=== PATIENT | female | born 1930 | race Caucasian/White ===

== ENCOUNTER → 2016-05-29 | Outpatient (CLI) | payer MEDICARE, BC ==
--- NOTE | 2016-05-29 11:09 | MM ---
Reason for exam: follow-up at short interval from prior study. Last mammogram was performed 6 months ago. History: Patient is postmenopausal. Physical Findings: Nurse did not find any significant physical abnormalities on exam. MG 3D Diag Mammo W/Cad RT CC and MLO view(s) were taken of the right breast. Prior study comparison: November 23, 2015, bilateral MG 3d screening mammo w/cad. November 14, 2014, right breast MG work up mamm w CAD RT. November 09, 2014, bilateral MG screening mammo w CAD. October 28, 2013, bilateral MG screening mammo w CAD. The breast tissue is heterogeneously dense. This may lower the sensitivity of mammography. Finding: There are typically benign vascular, round, linear calcifications in the right breast. There is no discrete abnormality. These results were verbally communicated with the patient and result sheet given to the patient on 05/29/16. ASSESSMENT: Benign, BI-RAD 2 RECOMMENDATION: Return to routine screening mammogram schedule for both breasts. Back on schedule for November 2016.
== END | disposition home or self-care (01) ==
LOC: RADMAMWWP 10:10
PROVIDERS: ATTEND Family Medicine
DX: R92.8 Other abnormal and inconclusive findings on diagnostic imaging of breast (principal)
CPT/HCPCS: G0206; G0279

== ENCOUNTER 2019-01-03 10:58 | Emergency (ER) | payer MEDICARE ==
[2019-01-03 11:14] VITALS: BP 125/67; PULSE 77; RESP 16; TEMP 98.1
--- NOTE | 2019-01-03 11:44 | ED ---
General Adult HPI - General Chief complaint: Extremity Injury, Lower Stated complaint: Discolored leg pain Time Seen by Provider: 01/03/19 11:10 Source: patient, family, RN notes reviewed Mode of arrival: wheelchair Limitations: no limitations - History of Present Illness Initial comments: This is an 88-year-old female who presents emergency Department complaining of ecchymosis to the right distal posterior leg. Patient states now the discoloration has spread to the medial and anterior aspect of the leg she says the area of swelling is mildly tender. Patient has noted that her side is caused a perfect demarcation of the discoloration. The area of discoloration aside from the ecchymotic area is yellow in color. Patient states it started yesterday evening. Patient denies any trauma that she knows of. Patient states she is on Xarelto. Patient denies any other sites of bruising or bleeding. Patient denies any difficulty breathing or chest pain. Patient states she has no other complaints other than the slight pain in the posterior aspect of the leg. - Related Data Home Medications Medication Instructions Recorded Confirmed ALPRAZolam [Xanax] 1 mg PO BID PRN 10/18/13 01/03/19 Atenolol [Tenormin] 25 mg PO BID 10/18/13 01/03/19 Furosemide [Lasix] 20 mg PO DAILY 10/18/13 01/03/19 Quinapril HCl [Accupril] 20 mg PO DAILY 10/18/13 01/03/19 Rivaroxaban [Xarelto] 15 mg PO DAILY 10/18/13 01/03/19 Simvastatin [Zocor] 40 mg PO HS 10/18/13 01/03/19 Allergies Allergy/AdvReac Type Severity Reaction Status Date / Time No Known Allergies Allergy Verified 01/03/19 11:40 Review of Systems ROS Statement: Those systems with pertinent positive or pertinent negative responses have been documented in the HPI. ROS Other: All systems not noted in ROS Statement are negative. Past Medical History Past Medical History: Coronary Artery Disease (CAD), Hyperlipidemia, Hypertension Additional Past Medical History / Comment(s): hypertension anxiety disorder History of Any Multi-Drug Resistant Organisms: None Reported Past Surgical History: Appendectomy, Coronary Bypass/CABG Additional Past Surgical History / Comment(s): CABG IN JAN 2013 WITH CARDIOVERSION Past Anesthesia/Blood Transfusion Reactions: No Reported Reaction Past Psychological History: Anxiety Smoking Status: Former smoker Past Alcohol Use History: None Reported Past Drug Use History: None Reported - Past Family History Father Additional Family Medical History / Comment(s): YOUNG FROM HEART ATTACK General Exam - General Exam Comments Initial Comments: GENERAL: Patient is well-developed and well-nourished. Patient is nontoxic and well- hydrated and is in mild distress. ENT: Neck is soft and supple. No significant lymphadenopathy is noted. Oropharynx is clear. Moist mucous membranes. Neck has full range of motion without el iciting any pain. EYES: The sclera were anicteric and conjunctiva were pink and moist. Extraocular movements were intact and pupils were equal round and reactive to light. Eyelids were unremarkable. PULMONARY: Unlabored respirations. Good breath sounds bilaterally. No audible rales rhonchi or wheezing was noted. CARDIOVASCULAR: There is a regular rate and rhythm without any murmurs gallops or rubs. ABDOMEN: Soft and nontender with normal bowel sounds. SKIN: Skin is clear with no lesions or rashes and otherwise unremarkable. NEUROLOGIC: Patient is alert and oriented x3. Cranial nerves II through XII are grossly intact. Motor and sensory are also intact. Normal speech, volume and content. Symmetrical smile. MUSCULOSKELETAL: Right calf is tender to palpation there is an area of ecchymosis is very tender to palpation in the medial aspect as well as anterior aspect is mildly yellow. There is a perfectly demarcated line at the point where the top of the sock was. PSYCHIATRIC: Normal psychiatric evaluation. Limitations: no limitations Course Vital Signs 01/03/19 11:11 Temperature 98.1 F Pulse Rate 77 Respiratory 16 Rate Blood Pressure 125/67 O2 Sat by Pulse 97 Oximetry Medical Decision Making - Medical Decision Making Ultrasound showed no DVT. Patient has full range of motion of the ankle without causing any pain. Patient has no problem ambulating without leg. The area in the back of her leg is tender to palpation but not with movement. Disposition Clinical Impression: Contusion of leg Disposition: HOME SELF-CARE Condition: Good Instructions (If sedation given, give patient instructions): Contusion in Adults (ED) Is patient prescribed a controlled substance at d/c from ED?: No Referrals: Stewart Dalton MD [Primary Care Provider] - 1-2 days Time of Disposition: 12:59
--- NOTE | 2019-01-03 12:33 | US ---
EXAMINATION TYPE: US venous doppler duplex LE RT DATE OF EXAM: 01/03/2019 12:16 PM COMPARISON: NONE CLINICAL HISTORY: Calf tenderness . SIDE PERFORMED: Right TECHNIQUE: The lower extremity deep venous system is examined utilizing real time linear array sonog shannan with graded compression, doppler sonography and color-flow sonography. VESSELS IMAGED: External Iliac Vein (EIV) Common Femoral Vein Deep Femoral Vein Greater Saphenous Vein * Femoral Vein Popliteal Vein Small Saphenous Vein * Proximal Calf Veins (* superficial vessels) Right Leg: Negative for DVT IMPRESSION: 1. No diagnostic evidence of DVT.
== END 2019-01-03 13:06 | disposition home or self-care (01) ==
LOC: EC 10:58
DX: S80.11XA Contusion of right lower leg, initial encounter (principal); I25.10 Atherosclerotic heart disease of native coronary artery without angina pectoris; E78.5 Hyperlipidemia, unspecified; I10 Essential (primary) hypertension; F41.9 Anxiety disorder, unspecified; Z87.891 Personal history of nicotine dependence; Z90.49 Acquired absence of other specified parts of digestive tract; Z95.1 Presence of aortocoronary bypass graft; Z79.01 Long term (current) use of anticoagulants; Z79.899 Other long term (current) drug therapy; X58.XXXA Exposure to other specified factors, initial encounter
CPT/HCPCS: 99283

== ENCOUNTER 2019-03-09 14:24 | Observation (INO) | payer MEDICARE ==
[2019-03-09] MEDS ORDERED: SODIUM CHLORIDE 0.9% 500 ML 500 ML IV STA (15:20)
[2019-03-09 15:55] LABS: Basophils # (A) 0.2 k/uL (0-0.2); Basophils % (A) 2 %; Eosinophils # (A) 0.3 k/uL (0-0.7); Eosinophils % (A) 4 %; HCT 41.2 % (34.0-46.0); HGB 13.4 gm/dL (11.4-16.0); Lymphocytes # (A) 1.8 k/uL (1.0-4.8); Lymphocytes % (A) 26 %; MCH 31.6 pg (25.0-35.0); MCHC 32.6 g/dL (31.0-37.0); Mean Platelet Volume 6.6; Monocytes # (A) 0.6 k/uL (0-1.0); Monocytes % (A) 8 %; Neutrophils # (A) 4.1 k/uL (1.3-7.7); Neutrophils % (A) 57 %; Platelet Count 214 k/uL (150-450); RBC 4.24 m/uL (3.80-5.40); RDW 12.9 % (11.5-15.5); WBC 7.1 k/uL (3.8-10.6)
[2019-03-09 16:05] LABS: ALT 11 U/L (4-34); AST 28 U/L (14-36); African American GFR (CKD) >90 (>60 ml/min/1.73 sqM); Albumin 3.8 g/dL (3.5-5.0); Alkaline Phosphatase 82 U/L (38-126); Anion Gap 6 mmol/L; Blood Urea Nitrogen 17 mg/dL (7-17); Calcium 9.1 mg/dL (8.4-10.2); Carbon Dioxide 27 mmol/L (22-30); Chloride 103 mmol/L (98-107); Glucose 97 mg/dL (74-99); INR 1.1 (<1.2); Magnesium 1.9 mg/dL (1.6-2.3); Non-African American GFR(CKD) 83 (>60 ml/min/1.73 sqM); Partial Thromboplastin Time 29.2 sec (22.0-30.0); Potassium 4.1 mmol/L (3.5-5.1); Prothrombin Time 11.9 sec (9.0-12.0); Sodium 136 mmol/L (137-145); Total Bilirubin 0.8 mg/dL (0.2-1.3); Total Protein 6.8 g/dL (6.3-8.2)
--- NOTE | 2019-03-09 16:40 | ED ---
General Adult HPI - General Chief complaint: GI Bleed Stated complaint: Rectal Bleeding Time Seen by Provider: 03/09/19 14:56 Source: patient, RN notes reviewed Mode of arrival: wheelchair Limitations: no limitations - History of Present Illness Initial comments: 88-year-old female with a past medical history of CAD, hyperlipidemia, hypertension, anxiety disorder presents to the emergency department for multiple complaints. Patient is complaining of urinary tract infection. States she does have some dysuria. States she has had urinary tract infections on and off several times a month and these seem to be recurrent. The patient also has had rectal bleeding. States this has been ongoing since Thursday. States it is bright red in nature. States it sometimes trips onto the floor. She denies lightheadedness or shortness of breath.Patient has no other complaints at this time including shortness of breath, chest pain, abdominal pain, nausea or vomiting, headache, or visual changes. - Related Data Home Medications Medication Instructions Recorded Confirmed Atenolol [Tenormin] 25 mg PO BID 10/18/13 03/09/19 Furosemide [Lasix] 20 mg PO DAILY 10/18/13 03/09/19 Quinapril HCl [Accupril] 20 mg PO DAILY 10/18/13 03/09/19 Simvastatin [Zocor] 40 mg PO HS 10/18/13 03/09/19 ALPRAZolam [Xanax] 0.5 mg PO DAILY PRN 03/09/19 03/09/19 Allergies Allergy/AdvReac Type Severity Reaction Status Date / Time No Known Allergies Allergy Verified 03/09/19 18:07 Review of Systems ROS Statement: Those systems with pertinent positive or pertinent negative responses have been documented in the HPI. ROS Other: All systems not noted in ROS Statement are negative. Past Medical History Past Medical History: Coronary Artery Disease (CAD), Hyperlipidemia, Hypertension Additional Past Medical History / Comment(s): hypertension anxiety disorder History of Any Multi-Drug Resistant Organisms: None Reported Past Surgical History: Appendectomy, Coronary Bypass/CABG Additional Past Surgical History / Comment(s): CABG IN JAN 2013 WITH CARDIOVERSION Past Anesthesia/Blood Transfusion Reactions: No Reported Reaction Past Psychological History: Anxiety Smoking Status: Former smoker Past Alcohol Use History: Occasional Past Drug Use History: None Reported - Past Family History Father Additional Family Medical History / Comment(s): YOUNG FROM HEART ATTACK General Exam Limitations: no limitations General appearance: alert, in no apparent distress Head exam: Present: atraumatic, normocephalic, normal inspection Eye exam: Present: normal appearance, PERRL, EOMI. Absent: scleral icterus, conjunctival injection, periorbital swelling ENT exam: Present: normal exam, mucous membranes moist Neck exam: Present: normal inspection, full ROM. Absent: tenderness, meningismus Respiratory exam: Present: normal lung sounds bilaterally. Absent: respiratory distress, wheezes, rales, rhonchi, stridor Cardiovascular Exam: Present: regular rate, normal rhythm, normal heart sounds. Absent: systolic murmur, diastolic murmur, rubs, gallop, clicks GI/Abdominal exam: Present: soft, normal bowel sounds. Absent: distended, tenderness, guarding, rebound, rigid Rectal exam: Present: normal inspection, hemorrhoids Neurological exam: Present: alert Course Vital Signs 03/09/19 03/09/19 14:41 18:28 Temperature 97.4 F L Pulse Rate 74 87 Respiratory 19 18 Rate Blood Pressure 159/86 185/88 O2 Sat by Pulse 96 98 Oximetry Medical Decision Making - Medical Decision Making Vitals are stable. CBC is unremarkable. Hemoglobin stable at 13.4. CMP unremarkable. Urinalysis does show evidence of infection. I reviewed urine culture from December and patient is sensitive to Rocephin. This was started in the emergency department. No evidence for urosepsis. Stool occult blood was positive. I do not see any roast blood on exam. Patient does have hemorrhoids noted however unknown if bleeding is from hemorrhoids. Dr. Parikh discussed this case with Dr. Dalton, will admit patient for further evaluation. - Lab Data Result diagrams: 03/09/19 15:30 03/09/19 15:30 Lab Results 03/09/19 03/09/19 03/09/19 Range/Units 15:30 15:30 15:30 WBC 7.1 (3.8-10.6) k/uL RBC 4.24 (3.80-5.40) m/uL Hgb 13.4 (11.4-16.0) gm/dL Hct 41.2 (34.0-46.0) % MCV 97.0 (80.0-100.0) fL MCH 31.6 (25.0-35.0) pg MCHC 32.6 (31.0-37.0) g/dL RDW 12.9 (11.5-15.5) % Plt Count 214 (150-450) k/uL Neutrophils % 57 % Lymphocytes % 26 % Monocytes % 8 % Eosinophils % 4 % Basophils % 2 % Neutrophils # 4.1 (1.3-7.7) k/uL Lymphocytes # 1.8 (1.0-4.8) k/uL Monocytes # 0.6 (0-1.0) k/uL Eosinophils # 0.3 (0-0.7) k/uL Basophils # 0.2 (0-0.2) k/uL PT (9.0-12.0) sec INR (<1.2) APTT (22.0-30.0) sec Sodium 136 L (137-145) mmol/L Potassium 4.1 (3.5-5.1) mmol/L Chloride 103 (98-107) mmol/L Carbon Dioxide 27 (22-30) mmol/L Anion Gap 6 mmol/L BUN 17 (7-17) mg/dL Creatinine 0.60 (0.52-1.04) mg/dL Est GFR (CKD-EPI)AfAm >90 (>60 ml/min/1.73 sqM) Est GFR (CKD-EPI)NonAf 83 (>60 ml/min/1.73 sqM) Glucose 97 (74-99) mg/dL Calcium 9.1 (8.4-10.2) mg/dL Magnesium 1.9 (1.6-2.3) mg/dL Total Bilirubin 0.8 (0.2-1.3) mg/dL AST 28 (14-36) U/L ALT 11 (4-34) U/L Alkaline Phosphatase 82 (38-126) U/L Total Protein 6.8 (6.3-8.2) g/dL Albumin 3.8 (3.5-5.0) g/dL Urine Color Urine Appearance (Clear) Urine pH (5.0-8.0) Ur Specific [place] (1.001-1.035) Urine Protein (Negative) Urine Glucose (UA) (Negative) Urine Ketones (Negative) Urine Blood (Negative) Urine Nitrite (Negative) Urine Bilirubin (Negative) Urine Urobilinogen (<2.0) mg/dL Ur Leukocyte Esterase (Negative) Urine RBC (0-5) /hpf Urine WBC (0-5) /hpf Urine WBC Clumps (None) /hpf Ur Squamous Epith Cells (0-4) /hpf Urine Bacteria (None) /hpf Urine Mucus (None) /hpf Urine Yeast (Budding) (None) /hpf Stool Occult Blood Positive H (Negative) 03/09/19 03/09/19 Range/Units 15:30 15:41 WBC (3.8-10.6) k/uL RBC (3.80-5.40) m/uL Hgb (11.4-16.0) gm/dL Hct (34.0-46.0) % MCV (80.0-100.0) fL MCH (25.0-35.0) pg MCHC (31.0-37.0) g/dL RDW (11.5-15.5) % Plt Count (150-450) k/uL Neutrophils % % Lymphocytes % % Monocytes % % Eosinophils % % Basophils % % Neutrophils # (1.3-7.7) k/uL Lymphocytes # (1.0-4.8) k/uL Monocytes # (0-1.0) k/uL Eosinophils # (0-0.7) k/uL Basophils # (0-0.2) k/uL PT 11.9 (9.0-12.0) sec INR 1.1 (<1.2) APTT 29.2 (22.0-30.0) sec Sodium (137-145) mmol/L Potassium (3.5-5.1) mmol/L Chloride (98-107) mmol/L Carbon Dioxide (22-30) mmol/L Anion Gap mmol/L BUN (7-17) mg/dL Creatinine (0.52-1.04) mg/dL Est GFR (CKD-EPI)AfAm (>60 ml/min/1.73 sqM) Est GFR (CKD-EPI)NonAf (>60 ml/min/1.73 sqM) Glucose (74-99) mg/dL Calcium (8.4-10.2) mg/dL Magnesium (1.6-2.3) mg/dL Total Bilirubin (0.2-1.3) mg/dL AST (14-36) U/L ALT (4-34) U/L Alkaline Phosphatase (38-126) U/L Total Protein (6.3-8.2) g/dL Albumin (3.5-5.0) g/dL Urine Color Yellow Urine Appearance Cloudy H (Clear) Urine pH 5.5 (5.0-8.0) Ur Specific [place] 1.014 (1.001-1.035) Urine Protein Negative (Negative) Urine Glucose (UA) Negative (Negative) Urine Ketones Negative (Negative) Urine Blood Small H (Negative) Urine Nitrite Positive H (Negative) Urine Bilirubin Negative (Negative) Urine Urobilinogen <2.0 (<2.0) mg/dL Ur Leukocyte Esterase Large H (Negative) Urine RBC 1 (0-5) /hpf Urine WBC >182 H (0-5) /hpf Urine WBC Clumps Moderate H (None) /hpf Ur Squamous Epith Cells 3 (0-4) /hpf Urine Bacteria Many H (None) /hpf Urine Mucus Rare H (None) /hpf Urine Yeast (Budding) Few H (None) /hpf Stool Occult Blood (Negative) Disposition Clinical Impression: Hematochezia, UTI (urinary tract infection) Disposition: ADMITTED IP TO THIS HOSP Condition: Fair Is patient prescribed a controlled substance at d/c from ED?: No Time of Disposition: 17:53
[2019-03-09 16:41] LABS: Appearance,Urine Cloudy (Clear); Bacteria,Urine Many /hpf; Bilirubin,Urine Negative (Negative); Blood,Urine Small (Negative); Budding Yeast,Urine Few /hpf; Color,Urine Yellow; Glucose,Urine (UA) Negative (Negative); Ketones,Urine Negative (Negative); Leukocyte Esterase,Urine Large (Negative); Mucus,Urine Rare /hpf; Nitrite,Urine Positive (Negative); PH, Urine 5.5 (5.0-8.0); Protein,Urine Negative (Negative); RBC,Urine 1 /hpf (0-5); Specific Gravity,Urine 1.014 (1.001-1.035); Squamous Epithelial Cell,Urine 3 /hpf (0-4); Urobilinogen,Urine <2.0 mg/dL (<2.0); WBC,Urine >182 /hpf (0-5)
[2019-03-09] MEDS ORDERED: cefTRIAXone IN SWFI 1,000 MG/10 ML SYRINGE IVP STA (16:46)
[2019-03-09] MEDS ORDERED: NALOXONE 0.4 MG/ML 1 ML VIAL IV PRN (17:51)
[2019-03-09] MEDS ORDERED: HYDROcodone/APAP 5-325MG 1 EACH TAB PO STA (17:56)
[2019-03-09] MEDS ORDERED: ATENOLOL 25 MG TAB PO STA (18:32)
[2019-03-09] MEDS: SODIUM CHLORIDE 0.9% 1,000 ML IV SCH (19:20)
[2019-03-10 05:56] VITALS: RESP 16
[2019-03-10] MEDS: SODIUM CHLORIDE 0.9% 1,000 ML IV SCH ×2 (08:22→22:21)
[2019-03-10 08:28] LABS: Basophils # (A) 0.1 k/uL (0-0.2); Basophils % (A) 1 %; Eosinophils # (A) 0.2 k/uL (0-0.7); Eosinophils % (A) 3 %; HCT 37.6 % (34.0-46.0); HGB 12.6 gm/dL (11.4-16.0); Lymphocytes # (A) 1.6 k/uL (1.0-4.8); Lymphocytes % (A) 21 %; MCH 32.9 pg (25.0-35.0); MCHC 33.4 g/dL (31.0-37.0); MCV 98.4 fL (80.0-100.0); Mean Platelet Volume 6.8; Monocytes # (A) 0.6 k/uL (0-1.0); Monocytes % (A) 8 %; Neutrophils % (A) 66 %; Platelet Count 224 k/uL (150-450); RBC 3.82 m/uL (3.80-5.40); RDW 12.9 % (11.5-15.5); WBC 7.6 k/uL (3.8-10.6)
[2019-03-10] MEDS ORDERED: ALPRAZolam 0.5 MG TAB PO PRN (10:01)
--- NOTE | 2019-03-10 12:36 | P.HPIM ---
History of Present Illness 88-year-old female presented to family practice physician with complaints of the dysuria and confusion. Daughter stated that she found of blood on the for. Found to have positive occult blood and UTI sent to the emergency room for evaluation. Decision was made to admit Review of Systems Genitourinary: Reports dysuria Past Medical History Past Medical History: Coronary Artery Disease (CAD), Hyperlipidemia, Hypertension Additional Past Medical History / Comment(s): hypertension anxiety disorder History of Any Multi-Drug Resistant Organisms: None Reported Past Surgical History: Appendectomy, Coronary Bypass/CABG Additional Past Surgical History / Comment(s): CABG IN JAN 2013 WITH CARDIOVERSION Past Anesthesia/Blood Transfusion Reactions: No Reported Reaction Past Psychological History: Anxiety Smoking Status: Former smoker Past Alcohol Use History: Occasional Past Drug Use History: None Reported - Past Family History Father Additional Family Medical History / Comment(s): YOUNG FROM HEART ATTACK Medications and Allergies Home Medications Medication Instructions Recorded Confirmed Type Atenolol [Tenormin] 25 mg PO BID 10/18/13 03/09/19 History Furosemide [Lasix] 20 mg PO DAILY 10/18/13 03/09/19 History Quinapril HCl [Accupril] 20 mg PO DAILY 10/18/13 03/09/19 History Simvastatin [Zocor] 40 mg PO HS 10/18/13 03/09/19 History ALPRAZolam [Xanax] 0.5 mg PO DAILY PRN 03/09/19 03/09/19 History Allergies Allergy/AdvReac Type Severity Reaction Status Date / Time No Known Allergies Allergy Verified 03/09/19 18:07 Physical Exam Vitals: Vital Signs Temp Pulse Pulse Resp BP BP Pulse Ox 03/10/19 11:32 97.7 F 77 16 136/87 95 03/10/19 05:55 98.1 F 71 16 118/66 03/09/19 20:47 97.3 F L 72 18 160/83 94 L 03/09/19 18:28 87 18 185/88 98 03/09/19 14:41 97.4 F L 74 19 159/86 96 Intake and Output 03/09/19 03/10/19 03/10/19 22:59 06:59 14:59 Intake Total 750 Balance 750 Intake: Intake, IV Titration 750 Amount Sodium Chloride 0.9% 1, 750 000 ml @ 75 mls/hr IV . [id number] Rx#:[id number] Other: Voiding Method Toilet # Voids 1 3 # Bowel Movements 1 Weight 69.4 kg - Constitutional General appearance: mild distress - EENT Eyes: PERRLA Ears: bilateral: normal - Neck Neck: normal ROM - Respiratory Respiratory: bilateral: CTA - Cardiovascular Rhythm: regular - Gastrointestinal external hemorrhoids General gastrointestinal: normal bowel sounds, soft - Integumentary Integumentary: normal - Neurologic Neurologic: CNII-XII intact - Musculoskeletal Musculoskeletal: generalized weakness - Psychiatric patient awake and alert pleasantly confused Results CBC & Chem 7: 03/10/19 07:45 03/09/19 15:30 Labs: Abnormal Lab Results - Last 24 Hours (Table) 03/09/19 03/09/19 03/09/19 Range/Units 15:30 15:30 15:41 Sodium 136 L (137-145) mmol/L Urine Appearance Cloudy H (Clear) Urine Blood Small H (Negative) Urine Nitrite Positive H (Negative) Ur Leukocyte Esterase Large H (Negative) Urine WBC >182 H (0-5) /hpf Urine WBC Clumps Moderate H (None) /hpf Urine Bacteria Many H (None) /hpf Urine Mucus Rare H (None) /hpf Urine Yeast (Budding) Few H (None) /hpf Stool Occult Blood Positive H (Negative) Microbiology - Last 24 Hours (Table) 03/09/19 15:41 Urine Culture - Preliminary Urine,Voided Thrombosis Risk Factor Assmnt - Choose All That Apply Each Factor Represents 1 point: Obesity (BMI >25) Each Risk Factor Represents 3 Points: Age 75 years or older Thrombosis Risk Factor Assessment Total Risk Factor Score: 4 Thrombosis Risk Factor Assessment Level: Moderate Risk Assessment and Plan Plan: assessment Lower GI bleed Urinary tract infection recurrent History of coronary disease with CABG hypertension Hyperlipidemia Plan Treat urinary tract infection Surgical consult regarding lower GI bleed
[2019-03-10 14:11] LABS: Basophils # (A) 0.1 k/uL (0-0.2); Basophils % (A) 1 %; Eosinophils # (A) 0.2 k/uL (0-0.7); Eosinophils % (A) 3 %; HGB 13.7 gm/dL (11.4-16.0); Lymphocytes % (A) 23 %; MCH 32.3 pg (25.0-35.0); MCHC 32.5 g/dL (31.0-37.0); MCV 99.3 fL (80.0-100.0); Mean Platelet Volume 6.9; Monocytes # (A) 0.7 k/uL (0-1.0); Monocytes % (A) 8 %; Neutrophils # (A) 5.4 k/uL (1.3-7.7); Neutrophils % (A) 63 %; Platelet Count 205 k/uL (150-450); RBC 4.23 m/uL (3.80-5.40); RDW 12.8 % (11.5-15.5); WBC 8.5 k/uL (3.8-10.6)
--- NOTE | 2019-03-10 16:23 | CT ---
EXAMINATION TYPE: CT brain wo con DATE OF EXAM: 03/10/2019 HISTORY: Right leg weakness CT DLP: 1121 mGycm. Automated Exposure Control for Dose Reduction was Utilized. TECHNIQUE: CT scan of the head is performed without contrast. COMPARISON: None. FINDINGS: There is no acute intracranial hemorrhage or midline shift identified. There is diffuse v entricular and sulcal prominence consistent with diffuse age-related cerebral atrophy. There is low- attenuation in the periventricular white matter consistent with chronic small vessel ischemic change. Vascular calcification distal internal carotid arteries bilaterally. Nasal septum deviated to right of midline. Paranasal sinuses are clear. IMPRESSION: No acute intracranial hemorrhage or midline shift. There is moderate diffuse age-relate d cerebral atrophy and chronic small vessel ischemic change noted.
[2019-03-10] MEDS ORDERED: ATORVASTATIN 20 MG TAB PO SCH (21:00)
[2019-03-10] MEDS: ATENOLOL 25 MG TAB PO SCH (22:20)
[2019-03-11] MEDS ORDERED: FUROSEMIDE 20 MG TAB PO SCH (09:00)
[2019-03-11] MEDS ORDERED: LISINOPRIL 20 MG TAB PO SCH (09:00)
[2019-03-11] MEDS: ATENOLOL 25 MG TAB PO SCH (10:06)
--- NOTE | 2019-03-11 10:52 | P.GSCN ---
History of Present Illness Consult date: 03/11/19 History of present illness: patient seen and evaluated for hematochezia. She had a normal bowel movement this morning without blood. She denies any abdominal pain. Patient is cleared from a surgical for discharge. Follow-up as outpatient advised. Past Medical History Past Medical History: Coronary Artery Disease (CAD), Hyperlipidemia, Hypertension Additional Past Medical History / Comment(s): hypertension anxiety disorder History of Any Multi-Drug Resistant Organisms: None Reported Past Surgical History: Appendectomy, Coronary Bypass/CABG Additional Past Surgical History / Comment(s): CABG IN JAN 2013 WITH CARDIOVERS ION Past Anesthesia/Blood Transfusion Reactions: No Reported Reaction Past Psychological History: Anxiety Smoking Status: Former smoker Past Alcohol Use History: Occasional Past Drug Use History: None Reported - Past Family History Father Additional Family Medical History / Comment(s): YOUNG FROM HEART ATTACK Medications and Allergies Home Medications Medication Instructions Recorded Confirmed Type Atenolol [Tenormin] 25 mg PO BID 10/18/13 03/09/19 History Furosemide [Lasix] 20 mg PO DAILY 10/18/13 03/09/19 History Quinapril HCl [Accupril] 20 mg PO DAILY 10/18/13 03/09/19 History Simvastatin [Zocor] 40 mg PO HS 10/18/13 03/09/19 History ALPRAZolam [Xanax] 0.5 mg PO DAILY PRN 03/09/19 03/09/19 History Allergies Allergy/AdvReac Type Severity Reaction Status Date / Time No Known Allergies Allergy Verified 03/09/19 18:07 Surgical - Exam Vital Signs Temp Pulse Resp BP Pulse Ox 97.4 F L 74 19 159/86 96 03/09/19 14:41 03/09/19 14:41 03/09/19 14:41 03/09/19 14:41 03/09/19 14:41 Results - Labs 03/10/19 13:46 03/09/19 15:30 Microbiology - Last 24 Hours (Table) 03/09/19 15:41 Urine Culture - Preliminary Urine,Voided Gram Neg Bacilli
[2019-03-11 11:58] VITALS: BP 161/74; PULSE 71; TEMP 98.1
--- NOTE | 2019-03-11 16:03 | P.DS ---
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 Dalton in the outpatient setting. She will continue on a short course of oral antibiotics in the form of Ceftin for the next 5 days. Total time taken is 35 minutes. History of present illness This is an 88-year-old female was recently admitted with complaints of dysuria and confusion and was sent to the hospital for admission from primary care provider Dr. Dalton. Patient was found to have positive local blood. Surgery was consulted and recommending no surgical intervention at this time for hematochezia as the patient had a bowel movement this morning with no blood noted. Hemoglobin is stable at 13.7. Urinalysis showed a urinary tract infection with culture preliminary showing gram-negative bacilli. Patient is adamant about going home today and states that she feels much better and is denying any symptoms of dysuria or urinary retention. Discussed with the family at the bedside today about the antibiotics and that the culture finalization's have not resulted yet and if adjustments need to be made that we will call them to make them aware. Sister verbalized understanding. Currently patient's condition is stable and is ready for discharge today. On exam vital signs are stable. Temp is 98.1F, pulse is 71, respirations are 16, blood pressure is 161/74, oxygen saturation is 95% on room air. Cardio S1, S2 are present. Respiratory system shows clear to auscultation. Abdomen is soft and non-tender. Nervous system shows no focal deficits. Please refer to medication reconciliation sheet for a list of medications. Patient Condition at Discharge: Fair Plan - Discharge Summary Discharge Rx Participant: No New Discharge Prescriptions: New Cefuroxime Axetil [Ceftin] 500 mg PO BID 5 Days #10 tab Continue Furosemide [Lasix] 20 mg PO DAILY Simvastatin [Zocor] 40 mg PO HS Quinapril HCl [Accupril] 20 mg PO DAILY Atenolol [Tenormin] 25 mg PO BID ALPRAZolam [Xanax] 0.5 mg PO DAILY PRN PRN Reason: Anxiety Discharge Medication List Atenolol [Tenormin] 25 mg PO BID 10/18/13 [History] Furosemide [Lasix] 20 mg PO DAILY 10/18/13 [History] Quinapril HCl [Accupril] 20 mg PO DAILY 10/18/13 [History] Simvastatin [Zocor] 40 mg PO HS 10/18/13 [History] ALPRAZolam [Xanax] 0.5 mg PO DAILY PRN 03/09/19 [History] Cefuroxime Axetil [Ceftin] 500 mg PO BID 5 Days #10 tab 03/11/19 [Rx] Follow up Appointment(s)/Referral(s): Stewart Dalton MD [Primary Care Provider] - 03/15/19 10:00 am Samanta Mustafa MD [STAFF PHYSICIAN] - 04/05/19 9:20 am Patient Instructions/Handouts: Cefuroxime (By mouth), Urinary Tract Infection in Women (DC) Activity/Diet/Wound Care/Special Instructions: activity limited until follow-up follow-up with primary care provider this week Continue taking antibiotics until finished Continue current diet Follow-up with Dr. Mustafa as discussed and scheduled Discharge Disposition: HOME SELF-CARE
== END 2019-03-11 14:25 | disposition home or self-care (01) ==
LOC: EC 14:24 → 5NMEDONC 17:27
PROVIDERS: ADMIT Family Medicine; ATTEND Family Medicine
DX: K92.2 Gastrointestinal hemorrhage, unspecified (principal); N39.0 Urinary tract infection, site not specified; I25.10 Atherosclerotic heart disease of native coronary artery without angina pectoris; E78.5 Hyperlipidemia, unspecified; F41.9 Anxiety disorder, unspecified; I10 Essential (primary) hypertension; Z79.899 Other long term (current) drug therapy; Z82.49 Family history of ischemic heart disease and other diseases of the circulatory system; Z87.440 Personal history of urinary (tract) infections; Z87.891 Personal history of nicotine dependence; Z95.1 Presence of aortocoronary bypass graft
CPT/HCPCS: 96361 ×3; 96365; 96376; 99285; 36415; 80053; 83735; 85025 ×2; 85610; 85730; 82272; 81001; 87086; 87077; 87186; 70450; G0378 ×3; J0696 ×2

== ENCOUNTER → 2020-05-02 | Outpatient (CLI) | payer MEDICARE ==
[2020-05-03 10:27] LABS: INR >9.57 (0.90-1.11)
== END | disposition home or self-care (01) ==
LOC: LABWHC1 12:29
PROVIDERS: ATTEND Nurse Practitioner Family
DX: I48.91 Unspecified atrial fibrillation (principal)
CPT/HCPCS: 36415; 85610

== ENCOUNTER 2020-05-09 18:48 | Emergency (ER) | payer MEDICARE ==
[2020-05-09 18:56] VITALS: RESP 18; TEMP 98.3
--- NOTE | 2020-05-09 19:19 | ED ---
General Adult HPI - General Chief complaint: Recheck/Abnormal Lab/Rx Stated complaint: High INR Time Seen by Provider: 05/09/20 18:59 Source: patient, family, RN notes reviewed Mode of arrival: wheelchair Limitations: no limitations - History of Present Illness Initial comments: Patient is a pleasant 79-year-old female presenting to the emergency Department with complaints of lab abnormality. Patient had blood work done today and INR was found to be elevated. Patient states she feels fine and has no complaints. They're unclear why patient is on Coumadin. Patient has had occasional difficulty finding words however some believes this is likely from her progression of baseline confusion. This is been occurring for over a month. - Related Data Home Medications Medication Instructions Recorded Confirmed Atenolol [Tenormin] 25 mg PO BID 10/18/13 03/09/19 Furosemide [Lasix] 20 mg PO DAILY 10/18/13 03/09/19 Quinapril HCl [Accupril] 20 mg PO DAILY 10/18/13 03/09/19 Simvastatin [Zocor] 40 mg PO HS 10/18/13 03/09/19 ALPRAZolam [Xanax] 0.5 mg PO DAILY PRN 03/09/19 03/09/19 Previous Rx's Medication Instructions Recorded Cefuroxime Axetil [Ceftin] 500 mg PO BID 5 Days #10 tab 03/11/19 Allergies Allergy/AdvReac Type Severity Reaction Status Date / Time No Known Allergies Allergy Verified 05/09/20 18:53 Review of Systems ROS Statement: Those systems with pertinent positive or pertinent negative responses have been documented in the HPI. ROS Other: All systems not noted in ROS Statement are negative. Constitutional: Denies: fever Eyes: Denies: eye pain ENT: Denies: ear pain Respiratory: Denies: cough, dyspnea Cardiovascular: Denies: chest pain Endocrine: Denies: fatigue Gastrointestinal: Denies: abdominal pain Genitourinary: Denies: dysuria Musculoskeletal: Denies: back pain Skin: Denies: rash Neurological: Reports: as per HPI. Denies: headache, weakness Past Medical History Past Medical History: Coronary Artery Disease (CAD), Hyperlipidemia, Hypertension Additional Past Medical History / Comment(s): hypertension anxiety disorder History of Any Multi-Drug Resistant Organisms: None Reported Past Surgical History: Appendectomy, Coronary Bypass/CABG Additional Past Surgical History / Comment(s): CABG IN JAN 2013 WITH CARDIOVERSI ON Past Anesthesia/Blood Transfusion Reactions: No Reported Reaction Past Psychological History: Anxiety Smoking Status: Never smoker Past Alcohol Use History: Occasional Past Drug Use History: None Reported - Past Family History Father Additional Family Medical History / Comment(s): YOUNG FROM HEART ATTACK General Exam Limitations: no limitations General appearance: alert, in no apparent distress Head exam: Present: atraumatic Eye exam: Present: normal appearance, PERRL, EOMI ENT exam: Present: normal oropharynx Neck exam: Present: normal inspection. Absent: tenderness, meningismus Respiratory exam: Present: normal lung sounds bilaterally Cardiovascular Exam: Present: regular rate, normal rhythm GI/Abdominal exam: Present: soft. Absent: tenderness Extremities exam: Present: normal inspection, full ROM. Absent: tenderness Neurological exam: Present: alert, CN II-XII intact. Absent: motor sensory deficit Expanded Neurological exam: Present: protecting the airway Patient oriented to: Present: person, place. Absent: time Speech: Present: fluid speech Motor strength exam: RUE: 5, LUE: 5, RLE: 5, LLE: 5 Eye Response: (4) open spontaneously Motor Response: (6) obeys commands Verbal Response: (5) oriented Psychiatric exam: Present: normal affect, normal mood Skin exam: Present: normal color Course Vital Signs 05/09/20 18:50 Temperature 98.3 F Pulse Rate 88 Respiratory 18 Rate Blood Pressure 148/91 O2 Sat by Pulse 97 Oximetry EKG Findings - EKG Comments: EKG Findings:: Sinus rhythm with rate of 73. QRS 86. QT 404. QTC 445. Normal axis. Low QRS voltage. No acute ST change. Medical Decision Making - Medical Decision Making Patient reevaluated and resting comfortably in bed. Patient remained symptom- free at this time. Urinalysis still not obtained. Patient and family, son do not want to have this done or wait for results. They state they can do this as an outpatient. They are agreeable to dose of vitamin K prior to discharge. Instructions provided. They do add that patient is on Coumadin secondary to history of atrial fibrillation - Lab Data Result diagrams: 05/09/20 19:27 05/09/20 19:27 Lab Results 05/09/20 05/09/20 05/09/20 Range/Units 19:27 19:27 19:27 WBC 8.7 (3.8-10.6) k/uL RBC 4.52 (3.80-5.40) m/uL Hgb 14.6 (11.4-16.0) gm/dL Hct 43.3 (34.0-46.0) % MCV 95.7 (80.0-100.0) fL MCH 32.3 (25.0-35.0) pg MCHC 33.7 (31.0-37.0) g/dL RDW 13.1 (11.5-15.5) % Plt Count 226 (150-450) k/uL MPV 6.8 Neutrophils % 58 % Lymphocytes % 28 % Monocytes % 8 % Eosinophils % 4 % Basophils % 1 % Neutrophils # 5.0 (1.3-7.7) k/uL Lymphocytes # 2.4 (1.0-4.8) k/uL Monocytes # 0.7 (0-1.0) k/uL Eosinophils # 0.3 (0-0.7) k/uL Basophils # 0.1 (0-0.2) k/uL PT >130.0 H (9.0-12.0) sec INR >10.0 H* (<1.2) APTT 59.8 H (22.0-30.0) sec Sodium 138 (137-145) mmol/L Potassium 3.9 (3.5-5.1) mmol/L Chloride 101 (98-107) mmol/L Carbon Dioxide 28 (22-30) mmol/L Anion Gap 9 mmol/L BUN 26 H (7-17) mg/dL Creatinine 0.71 (0.52-1.04) mg/dL Est GFR (CKD-EPI)AfAm 89 (>60 ml/min/1.73 sqM) Est GFR (CKD-EPI)NonAf 77 (>60 ml/min/1.73 sqM) Glucose 128 H (74-99) mg/dL Calcium 8.9 (8.4-10.2) mg/dL Total Bilirubin 0.6 (0.2-1.3) mg/dL AST 28 (14-36) U/L ALT 12 (4-34) U/L Alkaline Phosphatase 76 (38-126) U/L Total Protein 6.7 (6.3-8.2) g/dL Albumin 3.8 (3.5-5.0) g/dL - Radiology Data Radiology results: report reviewed (Computed tomography scan of the brain shows atrophy. No acute process.), image reviewed (Chest x-ray shows no acute disease.) Disposition Clinical Impression: Coagulopathy Disposition: HOME SELF-CARE Condition: Stable Instructions (If sedation given, give patient instructions): Hypercoagulation (ED) Additional Instructions: Please hold Coumadin for the next 2 days. Please have primary care physician recheck Coumadin level on Thursday. Able provide further direction at that time. Return for any bleeding, confusion, worsening symptoms, fevers or other concerns. Have primary care physician consider urinalysis study. Is patient prescribed a controlled substance at d/c from ED?: No Referrals: Stewart Dalton MD [Primary Care Provider] - 1-2 days Time of Disposition: 20:30
[2020-05-09 19:39] LABS: Basophils # (A) 0.1 k/uL (0-0.2); Basophils % (A) 1 %; Eosinophils # (A) 0.3 k/uL (0-0.7); Eosinophils % (A) 4 %; HCT 43.3 % (34.0-46.0); HGB 14.6 gm/dL (11.4-16.0); Lymphocytes # (A) 2.4 k/uL (1.0-4.8); Lymphocytes % (A) 28 %; MCH 32.3 pg (25.0-35.0); MCHC 33.7 g/dL (31.0-37.0); MCV 95.7 fL (80.0-100.0); Mean Platelet Volume 6.8; Monocytes # (A) 0.7 k/uL (0-1.0); Monocytes % (A) 8 %; Neutrophils % (A) 58 %; Platelet Count 226 k/uL (150-450); RBC 4.52 m/uL (3.80-5.40); RDW 13.1 % (11.5-15.5); WBC 8.7 k/uL (3.8-10.6)
[2020-05-09 19:54] LABS: Partial Thromboplastin Time 59.8 sec (22.0-30.0)
[2020-05-09 19:55] LABS: Prothrombin Time >130.0 sec (9.0-12.0)
[2020-05-09 19:56] LABS: INR >10.0 (<1.2)
[2020-05-09 20:15] LABS: Albumin 3.8 g/dL (3.5-5.0); Calcium 8.9 mg/dL (8.4-10.2); Potassium 3.9 mmol/L (3.5-5.1); Total Bilirubin 0.6 mg/dL (0.2-1.3); Total Protein 6.7 g/dL (6.3-8.2)
--- NOTE | 2020-05-09 20:15 | CT ---
EXAMINATION TYPE: CT brain wo con DATE OF EXAM: 05/09/2020 COMPARISON: 03/10/2019 HISTORY: Confusion CT DLP: 1064.4 mGycm Automated exposure control for dose reduction was used. Images obtained of the brain without contrast. There is cerebral cortical atrophy. There is no mass effect nor midline shift. There is no sign of in tracranial hemorrhage. There is some mild hypodensity in the periventricular white matter. The calvar ium is intact. IMPRESSION: Cerebral atrophy and chronic small vessel ischemia. No acute intracranial abnormality. No change.
--- NOTE | 2020-05-09 20:18 | XR ---
EXAMINATION TYPE: XR chest 2V DATE OF EXAM: 05/09/2020 COMPARISON: 11/02/2013 HISTORY: Weakness TECHNIQUE: 2 views FINDINGS: There is no heart failure nor confluent pneumonic infiltrate. There are chest leads. Costop hrenic angles are clear. There are sternal wires. IMPRESSION: No active cardiopulmonary disease. Small hiatal hernia noted. Hernia appears new compared to old exam.
[2020-05-09] MEDS ORDERED: PHYTONADIONE ORAL 5 MG/5 ML ORAL.SYRG PO STA (20:30)
[2020-05-09 20:55] LABS: Appearance,Urine Clear (Clear); Bacteria,Urine Occasional /hpf; Bilirubin,Urine Negative (Negative); Blood,Urine Moderate (Negative); Color,Urine Yellow; Glucose,Urine (UA) Negative (Negative); Hyaline Casts,Urine 7 /lpf (0-2); Ketones,Urine Negative (Negative); Leukocyte Esterase,Urine Small (Negative); Mucus,Urine Rare /hpf; Nitrite,Urine Negative (Negative); Protein,Urine Negative (Negative); RBC,Urine 39 /hpf (0-5); Squamous Epithelial Cell,Urine 1 /hpf (0-4); Urobilinogen,Urine <2.0 mg/dL (<2.0); WBC,Urine 4 /hpf (0-5)
[2020-05-09 21:08] VITALS: BP 130/75; PULSE 70
== END 2020-05-09 21:08 | disposition home or self-care (01) ==
LOC: EC 18:48
DX: D68.9 Coagulation defect, unspecified (principal); I25.10 Atherosclerotic heart disease of native coronary artery without angina pectoris; I10 Essential (primary) hypertension; E78.5 Hyperlipidemia, unspecified; F41.9 Anxiety disorder, unspecified; Z79.01 Long term (current) use of anticoagulants; Z79.899 Other long term (current) drug therapy; Z95.1 Presence of aortocoronary bypass graft
CPT/HCPCS: 36415; 70450; 71046; 80053; 81001; 85025; 85610; 85730; 93005; 99284

== ENCOUNTER → 2020-05-09 | Outpatient (CLI) | payer MEDICARE ==
[2020-05-09 16:55] LABS: INR >9.00 (0.90-1.11)
== END | disposition home or self-care (01) ==
LOC: LABWHC1 10:23
PROVIDERS: ATTEND Family Medicine
DX: I48.91 Unspecified atrial fibrillation (principal)
CPT/HCPCS: 36415; 85610

== ENCOUNTER → 2020-05-11 | Outpatient (CLI) | payer MEDICARE ==
[2020-05-11 17:22] LABS: INR 1.18 (0.90-1.11); Prothrombin Time 12.7 sec (9.9-11.9)
== END | disposition home or self-care (01) ==
LOC: LABWHC1 10:39
PROVIDERS: ATTEND Nurse Practitioner Family
DX: R79.1 Abnormal coagulation profile (principal)
CPT/HCPCS: 36415; 85610

== ENCOUNTER → 2020-07-13 | Outpatient (CLI) | payer MEDICARE ==
--- NOTE | 2020-07-13 14:15 | CT ---
EXAMINATION TYPE: CT brain wo con DATE OF EXAM: 07/13/2020 COMPARISON: 05/09/2020 HISTORY: dementia CT DLP: 700.[address] of the brain was performed. The ventricles, basal cisterns and sulci overlying the cerebral convexities demonstrate mild enlargem ent. There is no evidence for intracranial hemorrhage or sulcal effacement. There is decreased attenuation about the periventricular white matter and deep white matter of both c erebral hemispheres, compatible with chronic small vessel ischemia. Differential diagnosis does inclu de demyelination. No mass effects are seen.No midline shift. Osseous calvarium is intact. If symptoms persist consider MRI. IMPRESSION: 1. Age related atrophic and chronic small vessel ischemic change without acute intracranial process s een at this time.
--- NOTE | 2020-07-13 15:15 | XR ---
Bilateral hips HISTORY: Pain 2 views each hip submitted. Bone mineralization, joint spaces and alignment are maintained. Calcifications at the insertion of th e gluteus tendons could be indicative of calcific tendinitis. There is no fracture or dislocation. IMPRESSION: No acute abnormality. Additional findings above. Hip MRI may be of benefit.
== END | disposition home or self-care (01) ==
LOC: RADCTMAIN 13:20
PROVIDERS: ATTEND Family Medicine
DX: I67.82 Cerebral ischemia (principal); M25.551 Pain in right hip; M25.552 Pain in left hip
CPT/HCPCS: 70450; 73521

== ENCOUNTER 2021-04-01 18:01 | Emergency (ER) | payer MEDICARE ==
[2021-04-01 19:39] VITALS: RESP 18; TEMP 98.2
--- NOTE | 2021-04-01 22:12 | ED ---
Fall HPI - General Chief Complaint: Fall Stated Complaint: Fall,Pt on Blood Thinners,Head Pain Time Seen by Provider: 04/01/21 22:02 Source: patient, family, RN notes reviewed, old records reviewed Mode of arrival: wheelchair Limitations: no limitations - History of Present Illness Initial Comments: This is a 89-year-old female to the emergency department today. Patient resents today for evaluation regards to significant fall. Fall on blood thinners, Sobia. Patient has significant swelling of her right eye and pain to her facial area. No loss of consciousness no neck pain. 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 Witnessed: yes, by family Place Fall Occurred: home Loss of Consciousness: none Prolonged Down Time?: no Symptoms Prior to Fall: none Location: head, face Severity: moderate Severity scale (1-10): 4 Quality: aching Context: tripped/slipped Associated Symptoms: denies - Related Data Home Medications Medication Instructions Recorded Confirmed Atenolol [Tenormin] 25 mg PO BID@0630,1830 10/18/13 04/01/21 Quinapril HCl [Accupril] 20 mg PO DAILY@30 10/18/13 04/01/21 Simvastatin [Zocor] 40 mg PO HS@1830 10/18/13 04/01/21 ALPRAZolam [Xanax] 0.5 mg PO DAILY PRN 03/09/19 04/01/21 Acetaminophen Tab [Tylenol Tab] 1,000 mg PO Q6H PRN 04/01/21 04/01/21 Aspirin 325 mg PO DAILY@0630 04/01/21 04/01/21 Rivaroxaban [Xarelto] 20 mg PO DAILY@30 04/01/21 04/01/21 Allergies Allergy/AdvReac Type Severity Reaction Status Date / Time No Known Allergies Allergy Verified 04/01/21 23:17 Review of Systems ROS Statement: Those systems with pertinent positive or pertinent negative responses have been documented in the HPI. ROS Other: All systems not noted in ROS Statement are negative. Past Medical History Past Medical History: Coronary Artery Disease (CAD), Hyperlipidemia, Hypertension Additional Past Medical History / Comment(s): hypertension anxiety disorder History of Any Multi-Drug Resistant Organisms: None Reported Past Surgical History: Appendectomy, Coronary Bypass/CABG Additional Past Surgical History / Comment(s): CABG IN JAN 2013 WITH CARDIOVERSION Past Anesthesia/Blood Transfusion Reactions: No Reported Reaction Past Psychological History: Anxiety Smoking Status: Never smoker Past Alcohol Use History: Occasional Past Drug Use History: None Reported - Past Family History Father Additional Family Medical History / Comment(s): YOUNG FROM HEART ATTACK General Exam Limitations: physical limitation General appearance: alert, in no apparent distress Head exam: Present: normocephalic, normal inspection. Absent: atraumatic (Patient has significant swelling to right eye for had with nasal pain) Eye exam: Present: normal appearance, PERRL, EOMI. Absent: scleral icterus, conjunctival injection, periorbital swelling ENT exam: Present: normal exam, mucous membranes moist Neck exam: Present: normal inspection. Absent: tenderness, meningismus, lymphadenopathy Respiratory exam: Present: normal lung sounds bilaterally. Absent: respiratory distress, wheezes, rales, rhonchi, stridor Cardiovascular Exam: Present: regular rate, normal rhythm, normal heart sounds. Absent: systolic murmur, diastolic murmur, rubs, gallop, clicks GI/Abdominal exam: Present: soft, normal bowel sounds. Absent: distended, tenderness, guarding, rebound, rigid Extremities exam: Present: normal inspection, full ROM, normal capillary refill. Absent: tenderness, pedal edema, joint swelling, calf tenderness Back exam: Present: normal inspection Neurological exam: Present: alert, oriented X3, CN II-XII intact Psychiatric exam: Present: normal affect, normal mood Skin exam: Present: warm, dry, intact, normal color. Absent: rash Course Vital Signs 04/01/21 19:34 Temperature 98.2 F Pulse Rate 103 H Respiratory 18 Rate Blood Pressure 150/93 O2 Sat by Pulse 97 Oximetry - Reevaluation(s) Reevaluation #1: 04/02/21 00:14 Medical record is reviewed Reevaluation #2: 04/02/21 00:14 Patient not requiring any pain medication feels okay here in the ER but swelling is significantly increased Reevaluation #3: 04/02/21 00:14 Patient informed results and questions answered Medical Decision Making - Medical Decision Making 89 female to the emergency department for evaluation. Patient has significant facial trauma from fall on Xarelto. Nasal fracture significant hematoma above right eye with right eye swollen shut. Patient continues to ice and can be dis charged home - Radiology Data Radiology results: report reviewed (CT brain C-spine negative for significant somatic injury aside from nasal fracture with right forearm hematoma), image reviewed Disposition Clinical Impression: Fall, Traumatic hematoma of forehead, Nasal fracture Disposition: HOME SELF-CARE Condition: Good Instructions (If sedation given, give patient instructions): Nasal Fracture (ED), Fall Prevention for Older Adults (ED) Is patient prescribed a controlled substance at d/c from ED?: No Referrals: Stewart Dalton MD [STAFF PHYSICIAN] - 1-2 days
--- NOTE | 2021-04-01 22:36 | CT ---
EXAMINATION TYPE: CT brain kasiaine wo con DATE OF EXAM: 04/01/2021 COMPARISON: CT brain 07/13/2020 HISTORY: Fall. CT DLP: 1075.9 mGycm Automated exposure control for dose reduction was used. There is cerebral cortical atrophy. There is no mass effect or midline shift. There is no evidence of intracranial hemorrhage. The calvarium is intact. There is large right frontal scalp hematoma measur ing up to 1.5 cm in thickness. The skull base is intact. There is normal aeration of the mastoid sinu ses. The cervical Fairly normal alignment. There is degenerative disc space narrowing from C3 to C7 with spurring of th e endplates. Facet joints are intact. There is no subluxation. Prevertebral soft tissues are intact. IMPRESSION: Cerebral atrophy. No acute intracranial abnormality. Right frontal scalp hematoma. Brain not changed compared to old exam. Cervical mild spondylotic changes. No fracture.
--- NOTE | 2021-04-01 22:42 | CT ---
EXAMINATION TYPE: CT facial bones wo con DATE OF EXAM: 04/01/2021 COMPARISON: None HISTORY: Fall. CT DLP: 1075.9 mGycm Automated exposure control for dose reduction was used. Images obtained from the bottom of the mandible to the top of the frontal sinuses without contrast. The mandibular ring is intact. Temporomandibular joints are intact. Zygomatic arches appear normal. N angelica bone is deviated slightly to the left side. The maxilla is intact. There is no evidence of orbit al blowout fracture. There is fairly normal aeration of the paranasal sinuses. There is no evidence o f retro-orbital mass. There is large right frontal scalp hematoma measuring up to 1.5 cm in thickness. The calvarium appear s intact. There is no evidence of frontal bone fracture. IMPRESSION: Large right frontal scalp hematoma. Nasal bone fracture with deviation to the left side. Bilateral pe riorbital soft tissue swelling.
[2021-04-02 00:22] VITALS: BP 147/93; PULSE 97
== END 2021-04-01 23:25 | disposition home or self-care (01) ==
LOC: EC 18:01
DX: S02.2XXA Fracture of nasal bones, initial encounter for closed fracture (principal); S00.83XA Contusion of other part of head, initial encounter; E78.5 Hyperlipidemia, unspecified; I10 Essential (primary) hypertension; Z79.899 Other long term (current) drug therapy; W01.198A Fall on same level from slipping, tripping and stumbling with subsequent striking against other object, initial encounter; Y92.009 Unspecified place in unspecified non-institutional (private) residence as the place of occurrence of the external cause
CPT/HCPCS: 70450; 70486; 72125; 99284

== ENCOUNTER 2022-03-19 15:03 | Inpatient (IN) | payer MEDICARE ==
[2022-03-19] MEDS ORDERED: IPRATROPIUM-ALBUTEROL 3 ML NEB INHALATION STA (15:20)
--- NOTE | 2022-03-19 15:24 | ED ---
General Adult HPI - General Chief complaint: Fall Stated complaint: SOB Time Seen by Provider: 03/19/22 15:15 Source: EMS Mode of arrival: EMS Limitations: altered mental status - History of Present Illness Initial comments: Patient is an 89-year-old woman brought by EMS to have evaluation after a suspected fall. EMS states that they were told by family member that they had seen the patient kneelng over a chair. They suspect that she had fallen, and was attempting to get up using the chair to pull herself up. When I interview the patient she has no complaints. She denies pain. She denies dyspnea -: unknown Severity scale (1-10): 0 Improves with: none Worsens with: none Associated Symptoms: cough - Related Data Home Medications Medication Instructions Recorded Confirmed Atenolol [Tenormin] 25 mg PO BID@0630,1830 10/18/13 03/19/22 Quinapril HCl [Accupril] 20 mg PO DAILY@0630 10/18/13 03/19/22 Simvastatin [Zocor] 40 mg PO HS@1830 10/18/13 03/19/22 ALPRAZolam [Xanax] 0.5 mg PO DAILY PRN 03/09/19 03/19/22 Acetaminophen Tab [Tylenol Tab] 1,000 mg PO Q6H PRN 04/01/21 03/19/22 Aspirin 325 mg PO DAILY@0630 04/01/21 03/19/22 Cranberry Fruit Extract [Cranberry] 500 mg PO DAILY 03/19/22 03/19/22 Melatonin 5 mg PO Q2D@2100 03/19/22 03/19/22 Allergies Allergy/AdvReac Type Severity Reaction Status Date / Time No Known Allergies Allergy Verified 03/19/22 17:56 Review of Systems ROS Statement: Those systems with pertinent positive or pertinent negative responses have been documented in the HPI. ROS Other: All systems not noted in ROS Statement are negative. Limitations: ROS unobtainable due to patients medical condition Respiratory: Reports: cough. Denies: dyspnea Cardiovascular: Denies: chest pain Gastrointestinal: Denies: abdominal pain, vomiting Musculoskeletal: Denies: back pain Neurological: Denies: headache Past Medical History Past Medical History: Coronary Artery Disease (CAD), Dementia, Hyperlipidemia, Hypertension Additional Past Medical History / Comment(s): hypertension anxiety disorder History of Any Multi-Drug Resistant Organisms: None Reported Past Surgical History: Appendectomy, Coronary Bypass/CABG Additional Past Surgical History / Comment(s): CABG IN JAN 2013 WITH CARDIOVERSION Past Anesthesia/Blood Transfusion Reactions: No Reported Reaction Past Psychological History: Anxiety Smoking Status: Never smoker Past Alcohol Use History: Occasional Past Drug Use History: None Reported - Past Family History Father Additional Family Medical History / Comment(s): YOUNG FROM HEART ATTACK General Exam Limitations: altered mental status General appearance: alert, in no apparent distress Head exam: Present: atraumatic, normocephalic Eye exam: Present: normal appearance. Absent: scleral icterus, conjunctival injection ENT exam: Present: mucous membranes dry Neck exam: Present: normal inspection, full ROM. Absent: tenderness, meningismus Respiratory exam: Present: wheezes. Absent: respiratory distress, rales, rhonchi, stridor Cardiovascular Exam: Present: regular rate, normal rhythm, normal heart sounds. Absent: systolic murmur, diastolic murmur, rubs, gallop GI/Abdominal exam: Present: soft. Absent: distended, tenderness, guarding, rebound, rigid, mass Back exam: Present: normal inspection. Absent: CVA tenderness (R), CVA tenderness (L) Neurological exam: Present: alert. Absent: oriented X3, motor sensory deficit Skin exam: Present: warm, dry, intact, normal color. Absent: rash Course Vital Signs 03/19/22 03/19/22 03/19/22 15:12 15:45 16:21 Temperature 102.2 F H Pulse Rate 99 101 H 101 H Respiratory 20 20 Rate Blood Pressure 122/81 155/87 O2 Sat by Pulse 88 L 94 L Oximetry 03/19/22 03/19/22 03/19/22 16:30 17:05 20:06 Temperature 101.5 F H Pulse Rate 112 H 112 H 105 H Respiratory 20 18 Rate Blood Pressure 157/89 138/81 O2 Sat by Pulse 97 94 L Oximetry 03/19/22 03/19/22 21:12 22:25 Temperature 101.2 F H 98.9 F Pulse Rate 93 90 Respiratory 18 18 Rate Blood Pressure 127/81 O2 Sat by Pulse 94 L Oximetry EKG Findings - EKG Results: EKG: interpreted by ER[facility] EKG shows: atrial fibrillation (Rate 103 bpm) - NC, Pacemaker, Normal: Myocardial infarction: septal NC (old age or indeterminate) (Possible old septal infarct, there are Q waves in V1-2) Medical Decision Making - Lab Data Result diagrams: 03/23/22 06:16 03/23/22 06:16 Lab Results 03/19/22 03/19/22 03/19/22 Range/Units 15:34 15:34 15:34 WBC (3.8-10.6) k/uL RBC (3.80-5.40) m/uL Hgb (11.4-16.0) gm/dL Hct (34.0-46.0) % MCV (80.0-100.0) fL MCH (25.0-35.0) pg MCHC (31.0-37.0) g/dL RDW (11.5-15.5) % Plt Count (150-450) k/uL MPV Neutrophils % % Lymphocytes % % Monocytes % % Eosinophils % % Basophils % % Neutrophils # (1.3-7.7) k/uL Lymphocytes # (1.0-4.8) k/uL Monocytes # (0-1.0) k/uL Eosinophils # (0-0.7) k/uL Basophils # (0-0.2) k/uL PT 10.9 (9.0-12.0) sec INR 1.0 (<1.2) APTT 19.3 L (22.0-30.0) sec D-Dimer 1.53 H (<0.60) mg/L FEU Sodium 139 (137-145) mmol/L Potassium 3.8 (3.5-5.1) mmol/L Chloride 105 (98-107) mmol/L Carbon Dioxide 26 (22-30) mmol/L Anion Gap 8 mmol/L BUN 17 (7-17) mg/dL Creatinine 0.51 L (0.52-1.04) mg/dL Est GFR (CKD-EPI)AfAm >90 (>60 ml/min/1.73 sqM) Est GFR (CKD-EPI)NonAf 86 (>60 ml/min/1.73 sqM) Glucose 145 H (74-99) mg/dL Plasma Lactic Acid Luke 1.3 (0.7-2.0) mmol/L Calcium 8.6 (8.4-10.2) mg/dL Total Bilirubin 0.7 (0.2-1.3) mg/dL AST 43 H (14-36) U/L ALT 22 (4-34) U/L Alkaline Phosphatase 69 (38-126) U/L Troponin I (0.000-0.034) ng/mL NT-Pro-B Natriuret Pep pg/mL Total Protein 6.5 (6.3-8.2) g/dL Albumin 3.9 (3.5-5.0) g/dL Serum Alcohol <10 mg/dL Coronavirus (PCR) (Not Detectd) Influenza Type A RNA (Not Detectd) Influenza Type B (PCR) (Not Detectd) 03/19/22 03/19/22 03/19/22 Range/Units 15:34 15:34 15:34 WBC (3.8-10.6) k/uL RBC (3.80-5.40) m/uL Hgb (11.4-16.0) gm/dL Hct (34.0-46.0) % MCV (80.0-100.0) fL MCH (25.0-35.0) pg MCHC (31.0-37.0) g/dL RDW (11.5-15.5) % Plt Count (150-450) k/uL MPV Neutrophils % % Lymphocytes % % Monocytes % % Eosinophils % % Basophils % % Neutrophils # (1.3-7.7) k/uL Lymphocytes # (1.0-4.8) k/uL Monocytes # (0-1.0) k/uL Eosinophils # (0-0.7) k/uL Basophils # (0-0.2) k/uL PT (9.0-12.0) sec INR (<1.2) APTT (22.0-30.0) sec D-Dimer (<0.60) mg/L FEU Sodium (137-145) mmol/L Potassium (3.5-5.1) mmol/L Chloride (98-107) mmol/L Carbon Dioxide (22-30) mmol/L Anion Gap mmol/L BUN (7-17) mg/dL Creatinine (0.52-1.04) mg/dL Est GFR (CKD-EPI)AfAm (>60 ml/min/1.73 sqM) Est GFR (CKD-EPI)NonAf (>60 ml/min/1.73 sqM) Glucose (74-99) mg/dL Plasma Lactic Acid Luke (0.7-2.0) mmol/L Calcium (8.4-10.2) mg/dL Total Bilirubin (0.2-1.3) mg/dL AST (14-36) U/L ALT (4-34) U/L Alkaline Phosphatase (38-126) U/L Troponin I <0.012 (0.000-0.034) ng/mL NT-Pro-B Natriuret Pep 3140 pg/mL Total Protein (6.3-8.2) g/dL Albumin (3.5-5.0) g/dL Serum Alcohol mg/dL Coronavirus (PCR) (Not Detectd) Influenza Type A RNA Detected H (Not Detectd) Influenza Type B (PCR) Not Detected (Not Detectd) 03/19/22 03/19/22 Range/Units 15:34 15:59 WBC 7.9 (3.8-10.6) k/uL RBC 3.98 (3.80-5.40) m/uL Hgb 12.7 (11.4-16.0) gm/dL Hct 37.9 (34.0-46.0) % MCV 95.3 (80.0-100.0) fL MCH 31.9 (25.0-35.0) pg MCHC 33.5 (31.0-37.0) g/dL RDW 13.8 (11.5-15.5) % Plt Count 190 (150-450) k/uL MPV 7.6 Neutrophils % 81 % Lymphocytes % 7 % Monocytes % 9 % Eosinophils % 2 % Basophils % 1 % Neutrophils # 6.5 (1.3-7.7) k/uL Lymphocytes # 0.5 L (1.0-4.8) k/uL Monocytes # 0.7 (0-1.0) k/uL Eosinophils # 0.1 (0-0.7) k/uL Basophils # 0.0 (0-0.2) k/uL PT (9.0-12.0) sec INR (<1.2) APTT (22.0-30.0) sec D-Dimer (<0.60) mg/L FEU Sodium (137-145) mmol/L Potassium (3.5-5.1) mmol/L Chloride (98-107) mmol/L Carbon Dioxide (22-30) mmol/L Anion Gap mmol/L BUN (7-17) mg/dL Creatinine (0.52-1.04) mg/dL Est GFR (CKD-EPI)AfAm (>60 ml/min/1.73 sqM) Est GFR (CKD-EPI)NonAf (>60 ml/min/1.73 sqM) Glucose (74-99) mg/dL Plasma Lactic Acid Luke (0.7-2.0) mmol/L Calcium (8.4-10.2) mg/dL Total Bilirubin (0.2-1.3) mg/dL AST (14-36) U/L ALT (4-34) U/L Alkaline Phosphatase (38-126) U/L Troponin I (0.000-0.034) ng/mL NT-Pro-B Natriuret Pep pg/mL Total Protein (6.3-8.2) g/dL Albumin (3.5-5.0) g/dL Serum Alcohol mg/dL Coronavirus (PCR) Not Detected (Not Detectd) Influenza Type A RNA (Not Detectd) Influenza Type B (PCR) (Not Detectd) Disposition Clinical Impression: Fall, Influenza A, Generalized weakness Disposition: ADMITTED IP TO THIS HOSP Condition: Fair Is patient prescribed a controlled substance at d/c from ED?: No
[2022-03-19 16:03] LABS: ALT 22 U/L (4-34); AST 43 U/L (14-36); African American GFR (CKD) >90 (>60 ml/min/1.73 sqM); Albumin 3.9 g/dL (3.5-5.0); Alcohol <10 mg/dL; Alkaline Phosphatase 69 U/L (38-126); Anion Gap 8 mmol/L; Blood Urea Nitrogen 17 mg/dL (7-17); Calcium 8.6 mg/dL (8.4-10.2); Carbon Dioxide 26 mmol/L (22-30); Chloride 105 mmol/L (98-107); Glucose 145 mg/dL (74-99); Non-African American GFR(CKD) 86 (>60 ml/min/1.73 sqM); Potassium 3.8 mmol/L (3.5-5.1); Sodium 139 mmol/L (137-145); Total Bilirubin 0.7 mg/dL (0.2-1.3); Total Protein 6.5 g/dL (6.3-8.2)
--- NOTE | 2022-03-19 16:04 | XR ---
EXAMINATION TYPE: XR chest 2V DATE OF EXAM: 03/19/2022 COMPARISON: 05/09/2020 INDICATION: Difficulty breathing fall TECHNIQUE: Frontal and lateral views of the chest are obtained. FINDINGS: Sternotomy wires are in the midline from prior cardiac valve surgery. The heart size is normal. The pulmonary vasculature is normal. All right pleural effusion may be present. There is some fullness in the right hilar region with some nodularity. This appears to have been present previously.. IMPRESSION: 1. Suggestion of a mild right pleural effusion.
[2022-03-19 16:06] LABS: Prothrombin Time 10.9 sec (9.0-12.0)
[2022-03-19 16:14] LABS: Partial Thromboplastin Time 19.3 sec (22.0-30.0)
[2022-03-19 16:26] LABS: Basophils % (A) 1 %; Eosinophils # (A) 0.1 k/uL (0-0.7); Eosinophils % (A) 2 %; HCT 37.9 % (34.0-46.0); HGB 12.7 gm/dL (11.4-16.0); Lymphocytes # (A) 0.5 k/uL (1.0-4.8); Lymphocytes % (A) 7 %; MCH 31.9 pg (25.0-35.0); MCHC 33.5 g/dL (31.0-37.0); MCV 95.3 fL (80.0-100.0); Mean Platelet Volume 7.6; Monocytes # (A) 0.7 k/uL (0-1.0); Monocytes % (A) 9 %; Neutrophils # (A) 6.5 k/uL (1.3-7.7); Neutrophils % (A) 81 %; Platelet Count 190 k/uL (150-450); RBC 3.98 m/uL (3.80-5.40); RDW 13.8 % (11.5-15.5); WBC 7.9 k/uL (3.8-10.6)
--- NOTE | 2022-03-19 17:16 | CT ---
EXAMINATION TYPE: CT brain wo con CT DLP: 1129.4 mGycm, Automated exposure control for dose reduction was used. DATE OF EXAM: 03/19/2022 5:05 PM COMPARISON: 1022 facial bones. CLINICAL INDICATION:Female, 89 years old with history of fall injury, Undocumented fall/injury TECHNIQUE: Brain: Axial CT images of the brain were obtained with coronal and sagittal reformats created and rev iewed. Contrast used: None. Oral contrast used: None. FINDINGS: Brain: Extra-axial spaces: No abnormal extra-axial fluid collections. Ventricular system: Dilatation in proportion to cerebral atrophy. Cerebral parenchyma: Cerebral atrophy. No acute intraparenchymal hemorrhage or mass effect. The armenta -white junction is well differentiated. Scattered hypoattenuating areas are seen within the white mat ter. Cerebellum: Unremarkable. Mass effect: No evidence of midline shift. Intracranial vasculature: Atherosclerotic calcifications of the intracranial vessels. Soft tissues: Right frontal soft tissue edema. Calvarium/osseous structures: No depressed skull fracture. Paranasal sinuses and mastoid air cells: Mild scattered paranasal sinus disease. Visualized orbits: Bilateral aphakia IMPRESSION: 1. No acute intracranial process. 2. Nonspecific white matter changes, likely secondary to chronic small vessel ischemic disease.
--- NOTE | 2022-03-19 17:44 | CT ---
EXAMINATION TYPE: CT chest angio for PE CT DLP: 466.9 mGycm, Automated exposure control for dose reduction was used. DATE OF EXAM: 03/19/2022 5:06 PM COMPARISON: Chest radiograph from same day. CLINICAL INDICATION:Female, 89 years old with history of dyspnea, possible PE; SOB, Flu A+ Elevated d -dimer TECHNIQUE/CONTRAST: CTA scan of the thorax is performed with IV Contrast, patient injected with 100 mL of Isovue 370, pul monary embolism protocol. MIP images are created and reviewed. FINDINGS: Pulmonary Artery: There is no evidence for a central filling defect within the pulmonary vasculature to suggest acute pulmonary embolism. Limited evaluation of the segmental and subsegmental branches se condary to bolus timing. The pulmonary artery is at the upper limits of normal measuring 2.4 cm.. Lungs/Pleura: Trace bilateral pleural effusions are present. Mild thickening of interlobular septa. Airway: Large airways are patent. Heart: Enlarged mildly enlarged for size with much above. Valvular repair changes of the mitral and t ricuspid valve. Vasculature: No evidence of aortic aneurysm. Mediastinum: No gross evidence of adenopathy. Musculoskeletal: No acute osseous abnormalities Soft Tissues: Unremarkable. Lower neck: No significant findings. Upper Abdomen: Diffuse low-attenuation to the liver parenchyma. Scattered splenic granulomas. IMPRESSION: 1. There is motion artifact without definitive pulmonary embolus. No central embolus. 2. Cardiomegaly with trace bilateral pleural effusions and suggestion of pulmonary vascular congestio n correlate for congestive heart failure.
[2022-03-19] MEDS ORDERED: FUROSEMIDE 10 MG/ML 4 ML VIAL IV STA (19:00)
[2022-03-19] MEDS ORDERED: ACETAMINOPHEN TAB 325 MG TAB PO STA (20:05)
[2022-03-19] MEDS: FUROSEMIDE 10 MG/ML 4 ML VIAL IV SCH (20:15)
[2022-03-19] MEDS: MELATONIN 5 MG TABLET PO SCH (21:15)
[2022-03-20] MEDS: ALPRAZolam 0.5 MG TAB PO PRN (04:40)
[2022-03-20] MEDS ORDERED: IPRATROPIUM-ALBUTEROL 3 ML NEB INHALATION PRN (04:55)
[2022-03-20] MEDS: ASPIRIN 325 MG TAB PO SCH (06:18)
[2022-03-20] MEDS: atenoloL 25 MG TAB PO SCH ×2 (06:18→18:28)
[2022-03-20] MEDS ORDERED: lisinopriL 20 MG TAB PO SCH (06:30)
[2022-03-20] MEDS: OSELTAMIVIR 75 MG CAP PO SCH ×2 (06:56→20:39)
[2022-03-20] MEDS: IPRATROPIUM-ALBUTEROL 3 ML NEB INHALATION SCH ×4 (08:26→20:50)
[2022-03-20] MEDS: FUROSEMIDE 10 MG/ML 4 ML VIAL IV SCH ×2 (08:47→20:40)
[2022-03-20 12:32] LABS: Basophils # (A) 0.1 k/uL (0-0.2); Basophils % (A) 1 %; Eosinophils % (A) 0 %; HGB 12.9 gm/dL (11.4-16.0); Lymphocytes % (A) 12 %; MCH 32.1 pg (25.0-35.0); MCHC 33.1 g/dL (31.0-37.0); Mean Platelet Volume 7.8; Monocytes # (A) 0.8 k/uL (0-1.0); Monocytes % (A) 9 %; Neutrophils # (A) 6.2 k/uL (1.3-7.7); Neutrophils % (A) 75 %; Platelet Count 168 k/uL (150-450); RBC 4.02 m/uL (3.80-5.40); RDW 14.2 % (11.5-15.5); WBC 8.2 k/uL (3.8-10.6)
[2022-03-20] MEDS: ACETAMINOPHEN TAB 500 MG TAB PO PRN (15:09)
[2022-03-20] MEDS: ATORVASTATIN 20 MG TAB PO SCH (18:28)
[2022-03-20 18:41] LABS: African American GFR (CKD) 65.7 (60.0-200.0); Anion Gap 12.4 mmol/L (10.00-18.00); BUN/Creat Ratio 15.89 Ratio (12.00-20.00); Blood Urea Nitrogen 14.3 mg/dL (9.0-27.0); Carbon Dioxide 30.6 mmol/L (20.0-27.5); Non-African American GFR(CKD) 56.7 (60.0-200.0); Potassium 3.6 mmol/L (3.5-5.5)
--- NOTE | 2022-03-20 22:53 | P.HPIM ---
History of Present Illness H&P Date: 03/20/22 Chief Complaint: cough Patient is 89-year-old female with known history of coronary artery disease history of CABG in January 2013, history of cardioversion, dementia, hypert ension, hyperlipidemia, anxiety was brought to the hospital by family due to complaints of generalized weakness and suspected fall. Patient has been having cough since Thursday. Family noticed in the videocamera that patient was kneeling over the chair and had a fall. She was attempted to get up using the chair to pull herself up. Patient was brought to the hospital by EMS. Patient was having cough and congestion. On admission patient is febrile at T-max 102.2. Pulse ox 88% on room air. Patient denies any complaints of chest pain. No nausea vomiting abdominal pain or diarrhea. Denies any recent illnesses. Cough without any sputum production. Chest x-ray showed suggestive of mild right pleural effusion. CT head showed no acute intracranial process. Nonspecific white matter changes likely secondary to chronic small vessel ischemic disease. CTA chest showed there is motion artifact without definitive pulmonary embolus. No central embolus. Cardiomegaly with trace bilateral pleural effusions and suggestion of pulmonary vascular congestion correlate for CHF. EKG showed atrial fibrillation with rapid ventricular response. Heart rate 103. Laboratory data showed WBC 7.9 hemoglobin 12.7 and platelets 190 D-dimer 1.53. Sodium 139 potassium 3.8 chloride 105 bicarb is 26 BUN 17 creatinine 0.51 and blood sugar is 145 AST 43 ALT 22 alk phos 620 troponin x1 negative and proBNP 3140 Influenza type B detected. Patient was given a dose of 40 mg IV Lasix in the ER. Review of Systems Patient is somewhat poor historian. Complete review of systems could not be obtained from the patient except as per HPI. Past Medical History Past Medical History: Coronary Artery Disease (CAD), Dementia, Hyperlipidemia, Hypertension Additional Past Medical History / Comment(s): anxiety disorder History of Any Multi-Drug Resistant Organisms: None Reported Past Surgical History: Appendectomy, Coronary Bypass/CABG Additional Past Surgical History / Comment(s): CABG IN JAN 2013 WITH CARDIOVERSION Past Anesthesia/Blood Transfusion Reactions: No Reported Reaction Past Psychological History: Anxiety Smoking Status: Never smoker Past Alcohol Use History: Occasional Past Drug Use History: None Reported - Past Family History Father Additional Family Medical History / Comment(s): YOUNG FROM HEART ATTACK Medications and Allergies Home Medications Medication Instructions Recorded Confirmed Type Atenolol [Tenormin] 25 mg PO BID@0630,1830 10/18/13 03/19/22 History Quinapril HCl [Accupril] 20 mg PO DAILY@0630 10/18/13 03/19/22 History Simvastatin [Zocor] 40 mg PO HS@1830 10/18/13 03/19/22 History ALPRAZolam [Xanax] 0.5 mg PO DAILY PRN 03/09/19 03/19/22 History Acetaminophen Tab [Tylenol Tab] 1,000 mg PO Q6H PRN 04/01/21 03/19/22 History Aspirin 325 mg PO DAILY@0630 04/01/21 03/19/22 History Cranberry Fruit Extract [Cranberry] 500 mg PO DAILY 03/19/22 03/19/22 History Melatonin 5 mg PO Q2D@2100 03/19/22 03/19/22 History Allergies Allergy/AdvReac Type Severity Reaction Status Date / Time No Known Allergies Allergy Verified 03/19/22 17:56 Physical Exam Vitals: Vital Signs Temp Pulse Pulse Resp BP BP Pulse Ox 03/20/22 11:35 100 03/20/22 11:30 96 03/20/22 08:35 104 H 03/20/22 08:28 104 H 03/20/22 07:55 100 F H 90 20 123/73 95 03/20/22 06:15 24 03/20/22 05:24 103 H 03/20/22 05:15 115 H 03/20/22 04:45 105 H 36 H 93 L 03/20/22 02:00 98.8 F 93 22 121/77 93 L 03/20/22 00:20 98.4 F 91 22 145/77 96 03/20/22 00:00 91 22 03/19/22 22:25 98.9 F 90 18 127/81 94 L 03/19/22 21:12 101.2 F H 93 18 03/19/22 20:06 101.5 F H 105 H 18 138/81 94 L 03/19/22 17:05 112 H 20 157/89 97 03/19/22 16:30 112 H 03/19/22 16:21 101 H 03/19/22 15:45 101 H 20 155/87 94 L 03/19/22 15:12 102.2 F H 99 20 122/81 88 L Intake and Output 03/19/22 03/20/22 03/20/22 22:59 06:59 14:59 Other: Voiding Method External Catheter External Catheter # Voids 2 Weight 68.039 kg 68.039 kg 68.039 kg PHYSICAL EXAMINATION: Patient is lying in the bed comfortably, no acute distress, awake alert and oriented x1-2... HEENT: Normocephalic. Neck is supple. Pupils reactive. Nostrils clear. Oral cavity is moist. Neck reveals no JVD, carotid bruits, or thyromegaly. CHEST EXAMINATION: Trachea is central. Symmetrical expansion. Bibasilar diminished sounds and scattered crackles. Nonlabored breathing.. CARDIAC: Normal S1, S2 with no gallops. No murmurs ABDOMEN: Soft. Bowel sounds present. Nontender. No organomegaly. No abdominal bruits. Extremities: reveal no edema. No clubbing or cyanosis Neurologically awake, alert, oriented x1-2. Underlying dementia. No gross focal neurologic deficit. Skin: No rash or skin lesions. Psychiatric: Coperative. Could not be assessed completely. Musculoskeletal: No joint swelling or deformity. Normal range of motion. Results CBC & Chem 7: 03/20/22 11:52 03/20/22 11:52 Labs: Abnormal Lab Results - Last 24 Hours (Table) 03/19/22 03/19/22 03/19/22 Range/Units 15:34 15:34 15:34 Lymphocytes # (1.0-4.8) k/uL APTT 19.3 L (22.0-30.0) sec D-Dimer 1.53 H (<0.60) mg/L FEU Creatinine 0.51 L (0.52-1.04) mg/dL Glucose 145 H (74-99) mg/dL AST 43 H (14-36) U/L Influenza Type A RNA Detected H (Not Detectd) 03/19/22 Range/Units 15:59 Lymphocytes # 0.5 L (1.0-4.8) k/uL APTT (22.0-30.0) sec D-Dimer (<0.60) mg/L FEU Creatinine (0.52-1.04) mg/dL Glucose (74-99) mg/dL AST (14-36) U/L Influenza Type A RNA (Not Detectd) Thrombosis Risk Factor Assmnt - DVT/VTE Prophylaxis DVT/VTE Prophylaxis: Pharmacologic Prophylaxis ordered - Choose All That Apply Each Risk Factor Represents 3 Points: Age 75 years or older Thrombosis Risk Factor Assessment Total Risk Factor Score: 3 Thrombosis Risk Factor Assessment Level: Moderate Risk Assessment and Plan Assessment: Acute influenza A infection Acute hypoxic respiratory failure secondary to influenza a and CHF. Requiring oxygen at 4 L via nasal cannula. Acute CHF. Ejection fraction not known. History of coronary disease status post CABG History of cardioversion Atrial fibrillation with rapid ventricular rate Hypertension Hyperlipidemia Dementia Anxiety DVT prophylaxis with heparin subcu Plan: Patient will be continued on telemetry monitoring. Patient was given IV Lasix 40 mg in the ER. Continue with gentle diuresis due to underlying infection. Continue oxygen supplementation Tylenol as needed for fever. Patient will be continued on Aspirin and statins, atenolol and DuoNebs as needed. Encourage oral intake and follow-up closely. Patient was also started on Tamiflu. Cardiology will be consulted for evaluation. 2D echocardiogram was ordered. Prognosis guarded. Continue to follow closely. Time with Patient: Greater than 30
[2022-03-21] MEDS: HEPARIN SODIUM,PORCINE/PF 5,000 UNIT/0.5 ML SYRINGE SQ SCH ×4 (00:16→23:47)
[2022-03-21] MEDS: atenoloL 25 MG TAB PO SCH ×2 (05:59→17:08)
[2022-03-21] MEDS: ASPIRIN 325 MG TAB PO SCH (05:59)
[2022-03-21] MEDS: IPRATROPIUM-ALBUTEROL 3 ML NEB INHALATION SCH ×4 (07:25→19:08)
[2022-03-21] MEDS: FUROSEMIDE 10 MG/ML 2 ML VIAL IV SCH ×2 (08:39→20:35)
[2022-03-21] MEDS: OSELTAMIVIR 75 MG CAP PO SCH (08:39)
--- NOTE | 2022-03-21 08:55 | XR ---
EXAMINATION TYPE: XR chest 1V DATE OF EXAM: 03/21/2022 COMPARISON: 03/19/2022 HISTORY: 89-year-old female CHF TECHNIQUE: Single frontal view of the chest is obtained. FINDINGS: Median sternotomy wires are present. Annuloplasty rings. Patient rotated towards the left ultrasound and normal cardiothymic mediastinal contours. Heart appears borderline to mildly enlarged. Diffuse in terstitial density. Hyperinflation. Possible trace left effusion or focal peripheral left basilar den sity. IMPRESSION: 1. COPD with superimposed interstitial densities. Correlate for mild CHF with pulmonary vascular andrés estion. 2. Possible trace left effusion with adjacent atelectasis and/or consolidation.
--- NOTE | 2022-03-21 09:21 | P.CRDCN ---
History of Present Illness Consult date: 03/21/22 Requesting physician: Preston Iqbal Reason for Consult (text): CHF Chief complaint: cough, fall, weakness History of present illness: This is a confused 89-year-old female with a known history of hypertension, hyperlipidemia, prior mitral valve and tricuspid valve repair with history of minimal CAD on heart cath done in 2012, chronic persistent atrial fibrillation, previously anticoagulated when last seen in the office in 2018 but not currently anticoagulated for unknown reasons, dementia and anxiety. Patient was essentially nonverbal during my examination and therefore HPI was obtained from the chart. Upon speaking with nursing staff patient is apparently at her baseline mentation. Patient was brought to the hospital via EMS after the family noticed and a video camera that the patient was kneeling over a chair and had fallen. Again HPI was obtained from the chart. She apparently been having a cough since Thursday. Upon presentation she was febrile and oxygen saturation was 88% on room air. She was found to be positive for influenza A. EKG shows atrial fibrillation, she was in atrial fibrillation in 2018 at the last office visit and she was in atrial fibrillation in April 2020 on an EKG done here. Chest x-ray was suggestive of mild right pleural effusion. D-dimer was elevated and CTA of the chest was completed which revealed motion artifact without definitive O Radha embolism, no central embolus, cardiomegaly with trace bilateral pleural effusions and suggestion of pulmonary vascular congestion and recommended correlation for CHF. NT proBNP was elevated at 3140. She's been initiated on IV Lasix 20 mg every 12 hours. She's also been started on Tamiflu and her home dose of aspirin and Tylenol were resumed. Vital signs have been stable. Heart rate has been in the 80s to 90s. Oxygen saturation 94% on 4 L via nasal cannula. Upon examination she is resting comfortably in bed with head of bed elevated. She does not appear to be in any distress. Past Medical History Past Medical History: Coronary Artery Disease (CAD), Dementia, Hyperlipidemia, Hypertension Additional Past Medical History / Comment(s): anxiety disorder History of Any Multi-Drug Resistant Organisms: None Reported Past Surgical History: Appendectomy, Coronary Bypass/CABG Additional Past Surgical History / Comment(s): CABG IN JAN 2013 WITH CARDIOVERSION Past Anesthesia/Blood Transfusion Reactions: No Reported Reaction Past Psychological History: Anxiety Smoking Status: Never smoker Past Alcohol Use History: Occasional Past Drug Use History: None Reported - Past Family History Father Additional Family Medical History / Comment(s): YOUNG FROM HEART ATTACK Medications and Allergies Home Medications Medication Instructions Recorded Confirmed Type Atenolol [Tenormin] 25 mg PO BID@0630,1830 10/18/13 03/19/22 History Quinapril HCl [Accupril] 20 mg PO DAILY@0630 10/18/13 03/19/22 History Simvastatin [Zocor] 40 mg PO HS@1830 10/18/13 03/19/22 History ALPRAZolam [Xanax] 0.5 mg PO DAILY PRN 03/09/19 03/19/22 History Acetaminophen Tab [Tylenol Tab] 1,000 mg PO Q6H PRN 04/01/21 03/19/22 History Aspirin 325 mg PO DAILY@0630 04/01/21 03/19/22 History Cranberry Fruit Extract [Cranberry] 500 mg PO DAILY 03/19/22 03/19/22 History Melatonin 5 mg PO Q2D@2100 03/19/22 03/19/22 History Allergies Allergy/AdvReac Type Severity Reaction Status Date / Time No Known Allergies Allergy Verified 03/19/22 17:56 Physical Exam Vitals: Vital Signs Temp Pulse Pulse Resp BP Pulse Ox 03/21/22 07:40 92 03/21/22 07:28 88 94 L 03/21/22 05:56 83 116/70 03/21/22 02:00 99.2 F 95 20 111/63 92 L 03/20/22 20:00 98.1 F 90 22 104/65 96 03/20/22 19:40 90 22 03/20/22 16:13 94 03/20/22 16:02 92 03/20/22 16:00 100.3 F H 03/20/22 14:00 102.8 F H 111 H 20 132/89 95 03/20/22 11:35 100 03/20/22 11:30 96 Intake and Output 03/20/22 03/21/22 03/21/22 22:59 06:59 14:59 Intake Total 1560 Output Total 1300 600 Balance 260 -600 Intake: Oral 1560 Output: Urine 1300 600 Other: Voiding Method External Catheter External Catheter # Bowel Movements 1 PHYSICAL EXAMINATION: This is a 89-year-old female in no apparent distress at the time of my examination. HEENT: Head is atraumatic, normocephalic. Pupils are equal, round. Sclerae anicteric. Conjunctivae are clear. Mucous membranes of the mouth are moist. Neck is supple. There is no elevated jugular venous pressure. No carotid bruit is heard. CHEST EXAMINATION: Lungs reveal wheezing throughout with bibasilar crackles. Respirations even and nonlabored. HEART EXAMINATION: Heart irregular rate and rhythm, positive S1 and S2. No S3. No S4. Systolic ejection murmur. ABDOMEN: Soft, nontender. Bowel sounds are heard. No organomegaly noted. EXTREMITIES: 2+ peripheral pulses with no evidence of peripheral edema and no calf tenderness noted. NEUROLOGIC EXAMINATION: Patient is awake, alert and oriented x1. Results 03/20/22 11:52 03/20/22 11:52 CBC 03/20/22 Range/Units 11:52 WBC 8.2 (3.8-10.6) k/uL RBC 4.02 (3.80-5.40) m/uL Hgb 12.9 (11.4-16.0) gm/dL Hct 39.0 (34.0-46.0) % Plt Count 168 (150-450) k/uL Comprehensive Metabolic Panel 03/20/22 Range/Units 11:52 Sodium 140 (135-145) mmol/L Potassium 3.6 (3.5-5.5) mmol/L Chloride 97 (96-109) mmol/L Carbon Dioxide 30.6 H (20.0-27.5) mmol/L BUN 14.3 (9.0-27.0) mg/dL Creatinine 0.9 (0.6-1.5) mg/dL Glucose 125 H (70-110) mg/dL Calcium 9.0 (8.7-10.3) mg/dL Current Medications Generic Name Dose Route Start Last Admin Trade Name Freq PRN Reason Stop Dose Admin Acetaminophen 1,000 mg 03/19/22 20:33 03/20/22 15:09 Acetaminophen Tab 500 Mg Tab PO 1,000 mg Q6H PRN Administration Pain Albuterol/Ipratropium 3 ml 03/20/22 08:00 03/21/22 07:25 Ipratropium-Albuterol 3 Ml Neb INHALATION 3 ml RT-QID MANJEET Administration Albuterol/Ipratropium 3 ml 03/20/22 04:55 03/20/22 05:15 Ipratropium-Albuterol 3 Ml Neb INHALATION 3 ml RT-Q4H PRN Administration Shortness Of Breath Or Wheezing Alprazolam 0.5 mg 03/19/22 20:33 03/20/22 04:40 Alprazolam 0.5 Mg Tab PO 0.5 mg DAILY PRN Administration Anxiety Aspirin 325 mg 03/20/22 06:30 03/21/22 05:59 Aspirin 325 Mg Tab PO 325 mg DAILY@0630 MANJEET Administration Atenolol 25 mg 03/20/22 06:30 03/21/22 05:59 Atenolol 25 Mg Tab PO 25 mg BID@0630,1830 MANJEET Administration Atorvastatin Calcium 20 mg 03/20/22 18:30 03/20/22 18:28 Atorvastatin 20 Mg Tab PO 20 mg HS@1830 MANJEET Administration Furosemide 20 mg 03/21/22 09:00 03/21/22 08:39 Furosemide 10 Mg/Ml 2 Ml Vial IV 20 mg Q12HR MANJEET Administration Heparin Sodium (Porcine) 5,000 unit 03/21/22 00:00 03/21/22 08:39 Heparin Sodium,Porcine/Pf 5,000 Unit/0.5 Ml Syringe SQ 5,000 unit Q8HR MANJEET Administration Melatonin 5 mg 03/19/22 21:00 03/19/22 21:15 Melatonin 5 Mg Tablet PO 5 mg Q2D@2100 MANJEET Administration Oseltamivir Phosphate 75 mg 03/20/22 06:45 03/21/22 08:39 Oseltamivir 75 Mg Cap PO 03/21/22 10:00 75 mg Q12HR MANJEET Administration Protocol Oseltamivir Phosphate 30 mg 03/21/22 21:00 Oseltamivir 60 Mg/10 Ml Oral Syringe PO 03/24/22 21:01 Q12HR MANJEET Protocol Sodium Chloride 10 ml 03/19/22 21:00 03/21/22 08:39 Sodium Chloride 0.9% Flush 10 Ml Syringe IV 10 ml BID MANJEET Administration Intake and Output 03/20/22 03/21/22 03/21/22 22:59 06:59 14:59 Intake Total 1560 Output Total 1300 600 Balance 260 -600 Intake: Oral 1560 Output: Urine 1300 600 Other: Voiding Method External Catheter External Catheter # Bowel Movements 1 03/20/22 11:52 03/20/22 11:52 Assessment and Plan Assessment: #1 influenza A #2 acute on chronic likely diastolic congestive heart failure, probably exacerbated by above #3 chronic persistent atrial fibrillation not on anticoagulation #4 prior mitral and tricuspid valve repairs #5 dementia, advanced #6 hypertension #7 hyperlipidemia Plan: From cardiology's perspective will obtain a 2-D echo with Doppler study to assess cardiac structure and function. CHF likely exacerbated by influenza A virus. Continue to diurese the patient. Continue to monitor renal function and electrolytes. We will try to find out from the family rationale for not having the patient on anticoagulation. We will continue to follow the patient and provide further recommendations accordingly. SECURITY SYSTEMS SPECIALIST note has been reviewed, I agree with a documented findings and plan of care. Patient was seen and examined.
[2022-03-21 10:43] LABS: Basophils # (A) 0.06 X 10*3/uL (0.00-0.10); Basophils % (A) 0.8 %; Eosinophils # (A) 0.04 X 10*3/uL (0.04-0.35); Eosinophils % (A) 0.5 %; HCT 38.3 % (37.2-46.3); HGB 12.2 g/dL (12.0-15.0); Immature Grans, Automated 0.1 %; Lymphocytes # (A) 1.88 X 10*3/uL (0.90-5.00); Lymphocytes % (A) 24.5 %; MCH 31.2 pg (27.0-32.0); MCHC 31.9 g/dL (32.0-37.0); Mean Platelet Volume 9.7 fL (9.5-12.2); Monocytes # (A) 1.39 X 10*3/uL (0.20-1.00); Monocytes % (A) 18.1 %; NRBC Per 100 WBC 0 /100 WBCS (0.0-0.0); Neutrophils # (A) 4.29 X 10*3/uL (1.80-7.70); Platelet Count 184 X 10*3/uL (140-440); RBC 3.91 X 10*6/uL (4.10-5.20); RDW 14.8 % (11.5-14.5); WBC 7.67 X 10*3/uL (4.50-10.00)
[2022-03-21 11:00] LABS: African American GFR (CKD) 75.8 (60.0-200.0); Anion Gap 11.3 mmol/L (10.00-18.00); BUN/Creat Ratio 27.25 Ratio (12.00-20.00); Blood Urea Nitrogen 21.8 mg/dL (9.0-27.0); Calcium 8.5 mg/dL (8.7-10.3); Carbon Dioxide 32.7 mmol/L (20.0-27.5); Non-African American GFR(CKD) 65.4 (60.0-200.0); Potassium 3.2 mmol/L (3.5-5.5)
--- NOTE | 2022-03-21 17:05 | CA ---
Transthoracic Echo Report Name: Margarita Golden Age: 89 Gender: F : 1930 Exam Date: 03/21/2022 11:52 Exam Location: [facility] Ht (in): 63 Wt (lb): 150 Ordering Physician: Preston Iqbal MD Attending/Referring Phys: [employer] Application Administrator Debora Forrester RDCS Procedure CPT: Indications: chf Cardiac Hx: Technical Quality: Technically difficult study Contrast 1: Total Dose (mL): Contrast 2: Total Dose (mL): MEASUREMENTS (Male / Female) Normal Values 2D ECHO LV Diastolic Diameter PLAX 3.1 cm 4.2 - 5.9 / 3.9 - 5.3 cm LV Systolic Diameter PLAX 2.0 cm IVS Diastolic Thickness 1.6 cm 0.6 - 1.0 / 0.6 - 0.9 cm LVPW Diastolic Thickness 1.8 cm 0.6 - 1.0 / 0.6 - 0.9 cm LV Relative Wall Thickness 1.1 FINDINGS Left Ventricle No obvious regional wall motion abnormalities. Left ventricular ejection fraction is estimated at 55-60 %. Right Ventricle Right Atrium Left Atrium Mitral Valve Moderate mitral annular calcification. Aortic Valve Aortic valve sclerosis. Tricuspid Valve Pulmonic Valve Pericardium No pericardial effusion. Aorta CONCLUSIONS Limited echo. 1. Normal ventricle size and systolic function 2. No pericardial effusion Previewed by: Dr. Sophia Iyer MD (Electronically Signed) Final Date: 21 March 2022 17:04
[2022-03-21] MEDS: ATORVASTATIN 20 MG TAB PO SCH (17:08)
[2022-03-21] MEDS ORDERED: Potassium Replacement Protocol 1 EACH MISC MISCELLANE PRN (18:21)
[2022-03-21] MEDS: POTASSIUM CHLORIDE ER 20 MEQ TAB.ER PO SCH ×2 (18:40→20:35)
[2022-03-21] MEDS: MELATONIN 5 MG TABLET PO SCH (20:35)
[2022-03-21] MEDS: OSELTAMIVIR 60 MG/10 ML ORAL SYRINGE PO SCH (20:36)
[2022-03-22] MEDS: atenoloL 25 MG TAB PO SCH ×2 (06:21→17:24)
[2022-03-22] MEDS: ASPIRIN 325 MG TAB PO SCH (06:21)
[2022-03-22] MEDS: HEPARIN SODIUM,PORCINE/PF 5,000 UNIT/0.5 ML SYRINGE SQ SCH ×3 (09:06→23:37)
[2022-03-22] MEDS: OSELTAMIVIR 60 MG/10 ML ORAL SYRINGE PO SCH ×2 (09:06→21:11)
[2022-03-22] MEDS: FUROSEMIDE 10 MG/ML 2 ML VIAL IV SCH ×2 (09:06→20:42)
[2022-03-22] MEDS: IPRATROPIUM-ALBUTEROL 3 ML NEB INHALATION SCH ×4 (09:20→19:34)
--- NOTE | 2022-03-22 09:33 | P.PN ---
Subjective Progress Note Date: 03/22/22 Principal diagnosis: Heart failure with preserved ejection fraction The patient is a pleasant 89-year-old female patient with a past medical history significant for valvular heart disease status post mitral and tricuspid valve repair as well as history of permanent atrial fibrillation as well as obesity and hypertension and dyslipidemia and underlying dementia who was admitted to the hospital was increasing shortness of breath and she was diagnosed with acute hypoxic respiratory failure secondary to influenza A and also she did have a component of heart failure. She underwent an echo which revealed preserved left ventricular systolic function. March 222021 The patient was seen and evaluated this morning. She remains hypoxic. She is somewhat with historian. On examination she still congested with bilateral rhonchi/wheezing. No lower eccentric his edema. Currently she is on Lasix IV at 20 mg twice a day she has been diuresing well. The echo showed preserved left ventricle systolic function was normal significant valvular abnormalities. At this point I would advise continue the current dose of Lasix IV and continue monitor the kidney function and electrolytes and follow-up with the patient Objective - Vital Signs Vital signs: Vital Signs Temp 98.7 F 03/22/22 07:17 Pulse 100 03/22/22 09:18 Resp 20 03/22/22 07:17 BP 105/61 03/22/22 07:17 Pulse Ox 94 L 03/22/22 07:17 FiO2 Intake & Output 03/21/22 03/22/22 03/22/22 18:59 06:59 18:59 Intake Total 1080 Output Total 3 300 Balance 1077 -300 Intake: Oral 1080 Output: Urine 300 Stool 3 Other: Voiding Method External Catheter External Catheter # Voids 1 # Bowel Movements 1 - Constitutional General appearance: Present: morbidly obese, no acute distress - Respiratory Respiratory: bilateral: rhonchi, wheezing - Cardiovascular Rhythm: irregularly irregular Heart sounds: normal: S1, S2 - Labs CBC & Chem 7: 03/21/22 06:24 03/21/22 06:24 Labs: Abnormal Lab Results - Last 24 Hours (Table) 03/21/22 03/21/22 Range/Units 06:24 06:24 RBC 3.91 L (4.10-5.20) X 10*6/uL MCV 98.0 H (80.0-97.0) fL MCHC 31.9 L (32.0-37.0) g/dL RDW 14.8 H (11.5-14.5) % Monocytes # 1.39 H (0.20-1.00) X 10*3/uL Potassium 3.2 L (3.5-5.5) mmol/L Chloride 94 L (96-109) mmol/L Carbon Dioxide 32.7 H (20.0-27.5) mmol/L BUN/Creatinine Ratio 27.25 H (12.00-20.00) Ratio Calcium 8.5 L (8.7-10.3) mg/dL Microbiology - Last 24 Hours (Table) 03/19/22 15:34 Blood Culture - Preliminary Blood No Growth after 48 hours 03/19/22 15:34 Blood Culture - Preliminary Blood No Growth after 48 hours Assessment and Plan Assessment: Assessment Acute hypoxic respiratory failure Permanent atrial fibrillation with controlled heart rate. The patient is not on anticoagulation for unknown reason Influenza A infection Heart failure with a preserved ejection fraction exacerbation Underlying dementia Valvular heart disease status post mitral and tricuspid valve repair Multiple comorbid conditions Plan Continue the current dose of Lasix IV Continue monitor the kidney function and electrolytes Follow-up with the patient
[2022-03-22 11:18] LABS: HCT 34.7 % (37.2-46.3); HGB 11.6 g/dL (12.0-15.0); MCH 31.4 pg (27.0-32.0); MCHC 33.4 g/dL (32.0-37.0); Mean Platelet Volume 10.1 fL (9.5-12.2); NRBC Per 100 WBC 0 /100 WBCS (0.0-0.0); Platelet Count 195 X 10*3/uL (140-440); RBC 3.69 X 10*6/uL (4.10-5.20); RDW 14.8 % (11.5-14.5); WBC 12.81 X 10*3/uL (4.50-10.00)
[2022-03-22 11:28] LABS: Anion Gap 11.1 mmol/L (10.00-18.00); BUN/Creat Ratio 34.83 Ratio (12.00-20.00); Blood Urea Nitrogen 29.4 mg/dL (9.0-27.0); Calcium 8.3 mg/dL (8.7-10.3); Non-African American GFR(CKD) 61.3 (60.0-200.0); Potassium 3.9 mmol/L (3.5-5.5)
[2022-03-22 12:20] LABS: Basophils # (A) 0.06 X 10*3/uL (0.00-0.10); Basophils % (A) 0.5 %; Eosinophils # (A) 0.05 X 10*3/uL (0.04-0.35); Eosinophils % (A) 0.4 %; Immature Grans, Automated 0.3 %; Lymphocytes # (A) 2.38 X 10*3/uL (0.90-5.00); Lymphocytes % (A) 18.6 %; Monocytes # (A) 1.57 X 10*3/uL (0.20-1.00); Monocytes % (A) 12.3 %; Neutrophils # (A) 8.71 X 10*3/uL (1.80-7.70); Neutrophils % (A) 67.9 %
--- NOTE | 2022-03-22 12:35 | P.PN ---
Subjective Progress Note Date: 03/21/22 Patient is 89-year-old female with known history of coronary artery disease history of CABG in January 2013, history of cardioversion, dementia, hypertension, hyperlipidemia, anxiety was brought to the hospital by family due to complaints of generalized weakness and suspected fall. Patient has been havi ng cough since Thursday. Family noticed in the videocamera that patient was kneeling over the chair and had a fall. She was attempted to get up using the chair to pull herself up. Patient was brought to the hospital by EMS. Patient was having cough and congestion. On admission patient is febrile at T-max 102.2. Pulse ox 88% on room air. Patient denies any complaints of chest pain. No nausea vomiting abdominal pain or diarrhea. Denies any recent illnesses. Cough without any sputum production. Chest x-ray showed suggestive of mild right pleural effusion. CT head showed no acute intracranial process. Nonspecific white matter changes likely secondary to chronic small vessel ischemic disease. CTA chest showed there is motion artifact without definitive pulmonary embolus. No central embolus. Cardiomegaly with trace bilateral pleural effusions and suggestion of pulmonary vascular congestion correlate for CHF. EKG showed atrial fibrillation with rapid ventricular response. Heart rate 103. Laboratory data showed WBC 7.9 hemoglobin 12.7 and platelets 190 D-dimer 1.53. Sodium 139 potassium 3.8 chloride 105 bicarb is 26 BUN 17 creatinine 0.51 and blood sugar is 145 AST 43 ALT 22 alk phos 620 troponin x1 negative and proBNP 3140 Influenza type B detected. Patient was given a dose of 40 mg IV Lasix in the ER. 03/21/2022 Patient is currently in the medical floor. Able to sit in the chair. No complaints of chest pain. Patient still having cough and congestion. Continued on IV Lasix 20 mg to 12. Patient was seen by cardiology and 2D echocardiogram was ordered. Patient has been afebrile. Blood pressure 121/68 pulse 108 respiration 20 and pulse ox 92% on 4 L oxygen via nasal cannula. T-max 100.0. Laboratory data showed WBC 7.67 globin 12.12 platelets 184 and potassium 3.2 which is being replaced. BUN 21.8 and creatinine 0.8 and calcium 8.5. Patient is on atenolol 25 mg twice daily. Patient is also on Tamiflu. Current medications reviewed. Objective - Vital Signs Vital signs: Vital Signs Temp 97.8 F 03/21/22 08:00 Pulse 86 03/21/22 11:47 Resp 22 03/21/22 08:00 BP 130/83 03/21/22 08:00 Pulse Ox 93 L 03/21/22 08:00 FiO2 Intake & Output 03/20/22 03/21/22 03/21/22 18:59 06:59 18:59 Intake Total 1560 Output Total 1300 600 Balance 260 -600 Weight 68.039 kg Intake: Oral 1560 Output: Urine 1300 600 Other: Voiding Method External Catheter External Catheter External Catheter # Bowel Movements 1 - Exam PHYSICAL EXAMINATION: Patient is lying in the bed comfortably, no acute distress, awake alert and oriented x1-2... HEENT: Normocephalic. Neck is supple. Pupils reactive. Nostrils clear. Oral cavity is moist. Neck reveals no JVD, carotid bruits, or thyromegaly. CHEST EXAMINATION: Trachea is central. Symmetrical expansion. Bibasilar diminished sounds and scattered crackles. Nonlabored breathing.. CARDIAC: Normal S1, S2 with no gallops. No murmurs ABDOMEN: Soft. Bowel sounds present. Nontender. No organomegaly. No abdominal bruits. Extremities: reveal no edema. No clubbing or cyanosis Neurologically awake, alert, oriented x1-2. Underlying dementia. No gross focal neurologic deficit. Skin: No rash or skin lesions. Psychiatric: Coperative. Could not be assessed completely. Musculoskeletal: No joint swelling or deformity. Normal range of motion. - Labs CBC & Chem 7: 03/22/22 06:23 03/22/22 06:23 Labs: Abnormal Lab Results - Last 24 Hours (Table) 03/20/22 03/21/22 03/21/22 Range/Units 11:52 06:24 06:24 RBC 3.91 L (4.10-5.20) X 10*6/uL MCV 98.0 H (80.0-97.0) fL MCHC 31.9 L (32.0-37.0) g/dL RDW 14.8 H (11.5-14.5) % Monocytes # 1.39 H (0.20-1.00) X 10*3/uL Potassium 3.2 L (3.5-5.5) mmol/L Chloride 94 L (96-109) mmol/L Carbon Dioxide 30.6 H 32.7 H (20.0-27.5) mmol/L Est GFR (CKD-EPI)NonAf 56.7 L (60.0-200.0) BUN/Creatinine Ratio 27.25 H (12.00-20.00) Ratio Glucose 125 H (70-110) mg/dL Calcium 8.5 L (8.7-10.3) mg/dL Microbiology - Last 24 Hours (Table) 03/19/22 15:34 Blood Culture - Preliminary Blood No Growth after 24 hours 03/19/22 15:34 Blood Culture - Preliminary Blood No Growth after 24 hours Assessment and Plan Assessment: Acute influenza A infection Acute hypoxic respiratory failure secondary to influenza a and CHF. Requiring oxygen at 4 L via nasal cannula. Acute CHF. Ejection fraction not known. History of coronary disease status post CABG History of cardioversion Atrial fibrillation with rapid ventricular rate Hypertension Hyperlipidemia Dementia Anxiety DVT prophylaxis with heparin subcu Plan: Patient will be continued on telemetry monitoring. Patient was given IV Lasix 40 mg in the ER. Continue with gentle diuresis due to underlying infection. Continue oxygen supplementation Tylenol as needed for fever. Patient will be continued on Aspirin and statins, atenolol and DuoNebs as needed. Encourage oral intake and follow-up closely. Patient was also started on Tamiflu. Cardiology is following. 2D echocardiogram was ordered. Prognosis guarded. Continue to follow closely. Time with Patient: Greater than 30
[2022-03-22] MEDS: ATORVASTATIN 20 MG TAB PO SCH (17:24)
[2022-03-22] MEDS: ACETAMINOPHEN TAB 500 MG TAB PO PRN (20:42)
--- NOTE | 2022-03-23 04:41 | P.PN ---
Subjective Progress Note Date: 03/22/22 Patient is 89-year-old female with known history of coronary artery disease history of CABG in January 2013, history of cardioversion, dementia, hypertension, hyperlipidemia, anxiety was brought to the hospital by family due to complaints of generalized weakness and suspected fall. Patient has been havi ng cough since Thursday. Family noticed in the videocamera that patient was kneeling over the chair and had a fall. She was attempted to get up using the chair to pull herself up. Patient was brought to the hospital by EMS. Patient was having cough and congestion. On admission patient is febrile at T-max 102.2. Pulse ox 88% on room air. Patient denies any complaints of chest pain. No nausea vomiting abdominal pain or diarrhea. Denies any recent illnesses. Cough without any sputum production. Chest x-ray showed suggestive of mild right pleural effusion. CT head showed no acute intracranial process. Nonspecific white matter changes likely secondary to chronic small vessel ischemic disease. CTA chest showed there is motion artifact without definitive pulmonary embolus. No central embolus. Cardiomegaly with trace bilateral pleural effusions and suggestion of pulmonary vascular congestion correlate for CHF. EKG showed atrial fibrillation with rapid ventricular response. Heart rate 103. Laboratory data showed WBC 7.9 hemoglobin 12.7 and platelets 190 D-dimer 1.53. Sodium 139 potassium 3.8 chloride 105 bicarb is 26 BUN 17 creatinine 0.51 and blood sugar is 145 AST 43 ALT 22 alk phos 620 troponin x1 negative and proBNP 3140 Influenza type B detected. Patient was given a dose of 40 mg IV Lasix in the ER. 03/21/2022 Patient is currently in the medical floor. Able to sit in the chair. No complaints of chest pain. Patient still having cough and congestion. Continued on IV Lasix 20 mg to 12. Patient was seen by cardiology and 2D echocardiogram was ordered. Patient has been afebrile. Blood pressure 121/68 pulse 108 respiration 20 and pulse ox 92% on 4 L oxygen via nasal cannula. T-max 100.0. Laboratory data showed WBC 7.67 globin 12.12 platelets 184 and potassium 3.2 which is being replaced. BUN 21.8 and creatinine 0.8 and calcium 8.5. Patient is on atenolol 25 mg twice daily. Patient is also on Tamiflu. 03/22/2022 She was seen and evaluated in follow-up today asleep although arousable. Cardiology following patient is maintained on IV Lasix twice daily and 2-D echo has been reviewed. Patient with congestion and weak cough and overall feeling unwell. Patient not eating very well and encouraged oral intake. Patient continues on Tamiflu. Patient is currently afebrile and denies chest pain or palpitations. Patient continues with cough and generalized weakness. Will discuss with case management about discharge planning sometime next week ari pike. Follow-up labs and recommend replace electrolytes per protocol. Review of systems: Unable to obtain as patient is lethargic All medications have been reviewed Active Medications Acetaminophen (Acetaminophen Tab 500 Mg Tab) 1,000 mg PO Q6H PRN PRN Reason: Pain Last Admin: 03/20/22 15:09 Dose: 1,000 mg Albuterol/Ipratropium (Ipratropium-Albuterol 3 Ml Neb) 3 ml INHALATION RT-QID [facility] Last Admin: 03/22/22 09:20 Dose: 3 ml Albuterol/Ipratropium (Ipratropium-Albuterol 3 Ml Neb) 3 ml INHALATION RT-Q4H PRN PRN Reason: Shortness Of Breath Or Wheezing Last Admin: 03/20/22 05:15 Dose: 3 ml Alprazolam (Alprazolam 0.5 Mg Tab) 0.5 mg PO DAILY PRN PRN Reason: Anxiety Last Admin: 03/20/22 04:40 Dose: 0.5 mg Aspirin (Aspirin 325 Mg Tab) 325 mg PO DAILY@0630 [facility] Last Admin: 03/22/22 06:21 Dose: 325 mg Atenolol (Atenolol 25 Mg Tab) 25 mg PO BID@0630,1830 [facility] Last Admin: 03/22/22 06:21 Dose: 25 mg Atorvastatin Calcium (Atorvastatin 20 Mg Tab) 20 mg PO HS@1830 [facility] Last Admin: 03/21/22 17:08 Dose: 20 mg Furosemide (Furosemide 10 Mg/Ml 2 Ml Vial) 20 mg IV Q12HR [facility] Last Admin: 03/22/22 09:06 Dose: 20 mg Heparin Sodium (Porcine) (Heparin Sodium,Porcine/Pf 5,000 Unit/0.5 Ml Syringe) 5,000 unit SQ Q8HR [facility] Last Admin: 03/22/22 09:06 Dose: 5,000 unit Melatonin (Melatonin 5 Mg Tablet) 5 mg PO Q2D@2100 [facility] Last Admin: 03/21/22 20:35 Dose: 5 mg Miscellaneous Information (Potassium Replacement Protocol 1 Each Misc) 1 each MISCELLANE DAILY PRN; Protocol PRN Reason: Per Protocol Oseltamivir Phosphate (Oseltamivir 60 Mg/10 Ml Oral Syringe) 30 mg PO Q12HR [facility]; Protocol Stop: 03/24/22 21:01 Last Admin: 03/22/22 09:06 Dose: 30 mg Sodium Chloride (Sodium Chloride 0.9% Flush 10 Ml Syringe) 10 ml IV BID [facility] Last Admin: 03/22/22 09:06 Dose: 10 ml Physical exam: Patient is lying in the bed asleep but arousable, tearful with a weak cough, awake alert and oriented x1-2... HEENT: Normocephalic. Neck is supple. Pupils reactive. Nostrils clear. Oral cavity is moist. Neck reveals no JVD, carotid bruits, or thyromegaly. CHEST EXAMINATION: Trachea is central. Symmetrical expansion. Bibasilar diminished sounds and scattered crackles. Nonlabored breathing.. CARDIAC: Normal S1, S2 with no gallops. No murmurs ABDOMEN: Soft. Bowel sounds present. Nontender. No organomegaly. No abdominal bruits. Extremities: reveal no edema. No clubbing or cyanosis Neurologically awake, alert, oriented x1-2. Underlying dementia. No gross focal neurologic deficit. Diffusely weak Skin: No rash or skin lesions. Psychiatric: Cooperative. Could not be assessed completely. Musculoskeletal: No joint swelling or deformity. Normal range of motion. Assessment: Acute influenza A infection Acute hypoxic respiratory failure secondary to influenza a and CHF. Requiring oxygen at 4 L via nasal cannula. Acute CHF. Ejection fraction not known. History of coronary disease status post CABG History of cardioversion Atrial fibrillation with rapid ventricular rate, currently rate controlled Hypertension Hyperlipidemia Dementia Anxiety DVT prophylaxis with heparin subcu No code Plan: Claudette continue current medications and management with cardiology following Patient is continued on IV Lasix diuresing well Recommend follow-up labs in a.m. and replace electrolytes per protocol Encouraged increased activity as tolerated and oral intake Patient maintained on Tamiflu and will continue Recommend continue DuoNeb treatments Will need to discuss with case management about treatment plan moving forward and if going to ECF once stabilized and discharged. Due to multiple complex medical issues, Prognosis guarded. The impression and plan of care has been dictated by Yasmeen Chamorro, Nurse Practitioner as directed. Dr. Roxanna MD I have performed a history and examination and MDM of this patient, discussed the same with the dictator, and agree with the dictator's assessment and plan as written ,documented as a scribe. Based on total visit time, I have performed more than 50% of the visit. Objective - Vital Signs Vital signs: Vital Signs Temp 98.7 F 03/22/22 07:17 Pulse 100 03/22/22 09:30 Resp 20 03/22/22 07:17 BP 105/61 03/22/22 07:17 Pulse Ox 94 L 03/22/22 07:17 FiO2 Intake & Output 03/21/22 03/22/22 03/22/22 18:59 06:59 18:59 Intake Total 1080 Output Total 3 300 Balance 1077 -300 Intake: Oral 1080 Output: Urine 300 Stool 3 Other: Voiding Method External Catheter External Catheter # Voids 1 # Bowel Movements 1 - Labs CBC & Chem 7: 03/22/22 06:23 03/22/22 06:23 Labs: Abnormal Lab Results - Last 24 Hours (Table) 03/21/22 03/21/22 Range/Units 06:24 06:24 RBC 3.91 L (4.10-5.20) X 10*6/uL MCV 98.0 H (80.0-97.0) fL MCHC 31.9 L (32.0-37.0) g/dL RDW 14.8 H (11.5-14.5) % Monocytes # 1.39 H (0.20-1.00) X 10*3/uL Potassium 3.2 L (3.5-5.5) mmol/L Chloride 94 L (96-109) mmol/L Carbon Dioxide 32.7 H (20.0-27.5) mmol/L BUN/Creatinine Ratio 27.25 H (12.00-20.00) Ratio Calcium 8.5 L (8.7-10.3) mg/dL Microbiology - Last 24 Hours (Table) 03/19/22 15:34 Blood Culture - Preliminary Blood No Growth after 48 hours 03/19/22 15:34 Blood Culture - Preliminary Blood No Growth after 48 hours
[2022-03-23] MEDS: atenoloL 25 MG TAB PO SCH ×2 (05:46→17:35)
[2022-03-23] MEDS: ASPIRIN 325 MG TAB PO SCH (05:46)
[2022-03-23 07:22] LABS: Basophils % (A) 0 %; Eosinophils # (A) 0.1 k/uL (0-0.7); Eosinophils % (A) 0 %; HCT 35.8 % (34.0-46.0); HGB 12.1 gm/dL (11.4-16.0); Lymphocytes # (A) 1.7 k/uL (1.0-4.8); Lymphocytes % (A) 13 %; MCH 31.9 pg (25.0-35.0); MCHC 33.9 g/dL (31.0-37.0); MCV 94.1 fL (80.0-100.0); Monocytes % (A) 8 %; Neutrophils # (A) 10.2 k/uL (1.3-7.7); Neutrophils % (A) 77 %; Platelet Count 190 k/uL (150-450); RDW 13.6 % (11.5-15.5); WBC 13.2 k/uL (3.8-10.6)
[2022-03-23 07:39] LABS: African American GFR (CKD) >90 (>60 ml/min/1.73 sqM); Anion Gap 8 mmol/L; Blood Urea Nitrogen 32 mg/dL (7-17); Calcium 7.9 mg/dL (8.4-10.2); Carbon Dioxide 30 mmol/L (22-30); Chloride 92 mmol/L (98-107); Glucose 113 mg/dL (74-99); Non-African American GFR(CKD) 79 (>60 ml/min/1.73 sqM); Potassium 3.7 mmol/L (3.5-5.1); Sodium 130 mmol/L (137-145)
[2022-03-23] MEDS: IPRATROPIUM-ALBUTEROL 3 ML NEB INHALATION SCH ×4 (08:43→20:44)
[2022-03-23] MEDS: FUROSEMIDE 10 MG/ML 2 ML VIAL IV SCH (09:40)
[2022-03-23] MEDS: HEPARIN SODIUM,PORCINE/PF 5,000 UNIT/0.5 ML SYRINGE SQ SCH ×2 (09:40→17:35)
[2022-03-23] MEDS: OSELTAMIVIR 60 MG/10 ML ORAL SYRINGE PO SCH ×2 (09:40→20:54)
--- NOTE | 2022-03-23 09:46 | XR ---
EXAMINATION TYPE: XR chest 1V portable DATE OF EXAM: 03/23/2022 9:33 AM COMPARISON: Chest radiographs from 03/21/2022 TECHNIQUE: XR chest 1V portable Portable AP radiograph of the chest. CLINICAL INDICATION:Female, 89 years old with history of short of breath, chf follow up; FINDINGS: Lungs/Pleura: There is no evidence of pleural effusion, focal consolidation, or pneumothorax. Pulmonary vascularity: Pulmonary vascular congestion. Heart/mediastinum: Cardiomediastinal silhouette is enlarged and stable. Post valve repair changes. Musculoskeletal: No acute osseous pathology. Midline sternotomy wires are noted. IMPRESSION: Similar appearance of the lungs with Cardiomegaly and mild pulmonary vascular congestion. Correlate w ith BNP for congestive heart failure.
--- NOTE | 2022-03-23 11:06 | P.PN ---
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 She underwent an echo which revealed preserved left ventricular systolic function. March 222021 The patient was seen and evaluated this morning. She remains hypoxic. She is somewhat with historian. On examination she still congested with bilateral rhonchi/wheezing. No lower eccentric his edema. Currently she is on Lasix IV at 20 mg twice a day she has been diuresing well. The echo showed preserved left ventricle systolic function was normal significant valvular abnormalities. At this point I would advise continue the current dose of Lasix IV and continue monitor the kidney function and electrolytes and follow-up with the patient 03/23/2022 The patient was seen and evaluated this morning. Unfortunately she still short of breath. She still wheezing. She still hypoxic. On examination she does have bilateral expiratory wheezing bilateral rhonchi. She is not making good urine on the current dose of Lasix which is 20 mg twice a day IV. I'm going to increase the dose to 40 mg IV twice a day. Meanwhile continue the current medical regimen and continue monitor the kidney function and electrolytes and follow-up with the patient Objective - Vital Signs Vital signs: Vital Signs Temp 98.5 F 03/23/22 09:07 Pulse 88 03/23/22 10:38 Resp 18 03/23/22 10:38 BP 106/66 03/23/22 09:07 Pulse Ox 93 L 03/23/22 09:07 FiO2 Intake & Output 03/22/22 03/23/22 03/23/22 18:59 06:59 18:59 Intake Total 300 Output Total 200 Balance -200 300 Intake: Oral 300 Output: Urine 200 Other: Voiding Method External Catheter External Catheter # Voids 1 # Bowel Movements 1 - Constitutional General appearance: Present: no acute distress - Respiratory Respiratory: bilateral: wheezing - Cardiovascular Rhythm: regular - Labs CBC & Chem 7: 03/23/22 06:16 03/23/22 06:16 Labs: Abnormal Lab Results - Last 24 Hours (Table) 03/22/22 03/22/22 03/22/22 Range/Units 06:23 06:23 06:23 WBC 12.81 H (4.50-10.00) X 10*3/uL RBC 3.69 L (4.10-5.20) X 10*6/uL Hgb 11.6 L (12.0-15.0) g/dL Hct 34.7 L (37.2-46.3) % RDW 14.8 H (11.5-14.5) % Neutrophils # 8.71 H (1.80-7.70) X 10*3/uL Monocytes # 1.57 H (0.20-1.00) X 10*3/uL Sodium (137-145) mmol/L Chloride 94 L (96-109) mmol/L Carbon Dioxide 32.0 H (20.0-27.5) mmol/L BUN 29.4 H (9.0-27.0) mg/dL BUN/Creatinine Ratio 34.83 H (12.00-20.00) Ratio Glucose (74-99) mg/dL Calcium 8.3 L (8.7-10.3) mg/dL Procalcitonin 0.29 H (0.02-0.09) ng/mL 03/23/22 03/23/22 Range/Units 06:16 06:16 WBC 13.2 H (4.50-10.00) X 10*3/uL RBC (4.10-5.20) X 10*6/uL Hgb (12.0-15.0) g/dL Hct (37.2-46.3) % RDW (11.5-14.5) % Neutrophils # 10.2 H (1.80-7.70) X 10*3/uL Monocytes # (0.20-1.00) X 10*3/uL Sodium 130 L (137-145) mmol/L Chloride 92 L (96-109) mmol/L Carbon Dioxide (20.0-27.5) mmol/L BUN 32 H (9.0-27.0) mg/dL BUN/Creatinine Ratio (12.00-20.00) Ratio Glucose 113 H (74-99) mg/dL Calcium 7.9 L (8.7-10.3) mg/dL Procalcitonin (0.02-0.09) ng/mL Microbiology - Last 24 Hours (Table) 03/19/22 15:34 Blood Culture - Preliminary Blood No Growth after 72 hours 03/19/22 15:34 Blood Culture - Preliminary Blood No Growth after 72 hours Assessment and Plan Assessment: Assessment Acute hypoxic respiratory failure Permanent atrial fibrillation with controlled heart rate. 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
[2022-03-23] MEDS: ATORVASTATIN 20 MG TAB PO SCH (17:35)
[2022-03-23] MEDS: FUROSEMIDE 10 MG/ML 4 ML VIAL IV SCH (20:01)
[2022-03-23] MEDS: MELATONIN 5 MG TABLET PO SCH (20:05)
[2022-03-23] MEDS: ACETAMINOPHEN TAB 500 MG TAB PO PRN (20:22)
[2022-03-23] MEDS: ALPRAZolam 0.5 MG TAB PO PRN (20:22)
[2022-03-23] MEDS ORDERED: atenoloL 25 MG TAB PO STA (20:44)
[2022-03-24] MEDS: HEPARIN SODIUM,PORCINE/PF 5,000 UNIT/0.5 ML SYRINGE SQ SCH ×3 (01:56→18:07)
--- NOTE | 2022-03-24 02:01 | P.PN ---
Subjective Progress Note Date: 03/23/22 Patient is 89-year-old female with known history of coronary artery disease history of CABG in January 2013, history of cardioversion, dementia, hypertension, hyperlipidemia, anxiety was brought to the hospital by family due to complaints of generalized weakness and suspected fall. Patient has been havi ng cough since Thursday. Family noticed in the videocamera that patient was kneeling over the chair and had a fall. She was attempted to get up using the chair to pull herself up. Patient was brought to the hospital by EMS. Patient was having cough and congestion. On admission patient is febrile at T-max 102.2. Pulse ox 88% on room air. Patient denies any complaints of chest pain. No nausea vomiting abdominal pain or diarrhea. Denies any recent illnesses. Cough without any sputum production. Chest x-ray showed suggestive of mild right pleural effusion. CT head showed no acute intracranial process. Nonspecific white matter changes likely secondary to chronic small vessel ischemic disease. CTA chest showed there is motion artifact without definitive pulmonary embolus. No central embolus. Cardiomegaly with trace bilateral pleural effusions and suggestion of pulmonary vascular congestion correlate for CHF. EKG showed atrial fibrillation with rapid ventricular response. Heart rate 103. Laboratory data showed WBC 7.9 hemoglobin 12.7 and platelets 190 D-dimer 1.53. Sodium 139 potassium 3.8 chloride 105 bicarb is 26 BUN 17 creatinine 0.51 and blood sugar is 145 AST 43 ALT 22 alk phos 620 troponin x1 negative and proBNP 3140 Influenza type B detected. Patient was given a dose of 40 mg IV Lasix in the ER. 03/21/2022 Patient is currently in the medical floor. Able to sit in the chair. No complaints of chest pain. Patient still having cough and congestion. Continued on IV Lasix 20 mg to 12. Patient was seen by cardiology and 2D echocardiogram was ordered. Patient has been afebrile. Blood pressure 121/68 pulse 108 respiration 20 and pulse ox 92% on 4 L oxygen via nasal cannula. T-max 100.0. Laboratory data showed WBC 7.67 globin 12.12 platelets 184 and potassium 3.2 which is being replaced. BUN 21.8 and creatinine 0.8 and calcium 8.5. Patient is on atenolol 25 mg twice daily. Patient is also on Tamiflu. 03/22/2022 She was seen and evaluated in follow-up today asleep although arousable. Cardiology following patient is maintained on IV Lasix twice daily and 2-D echo has been reviewed. Patient with congestion and weak cough and overall feeling unwell. Patient not eating very well and encouraged oral intake. Patient continues on Tamiflu. Patient is currently afebrile and denies chest pain or palpitations. Patient continues with cough and generalized weakness. Will discuss with case management about discharge planning sometime next week ari y. Follow-up labs and recommend replace electrolytes per protocol. Patient is on IV Lasix and will obtain chest x-ray. Encouraged oral intake and will attempt incentive spirometer use 03/23/2022 Patient is seen in follow-up this morning and after reviewing labs patient is hyponatremic with a sodium of 130, potassium is 3.7, creatinine is stable at 0.66 and WBC is 13.2. Hemoglobin is stable at 12.1. Patient is continued on 4 L via nasal cannula with an oxygen saturation of 93%. Cardiology following recommending increasing dose of Lasix as chest x-ray continues to show pulmonary edema with vascular congestion. Patient's oral intake is poor and overall prognosis remains extremely guarded. Patient is afebrile and continues to be dyspneic on exam patient continuously keeps taking her oxygen off and needs constant redirection. Review of systems: Unable to obtain as patient is lethargic All medications have been reviewed Active Medications Acetaminophen (Acetaminophen Tab 500 Mg Tab) 1,000 mg PO Q6H PRN PRN Reason: Pain Last Admin: 03/23/22 20:22 Dose: 1,000 mg Albuterol/Ipratropium (Ipratropium-Albuterol 3 Ml Neb) 3 ml INHALATION RT-QID [facility] Last Admin: 03/23/22 20:44 Dose: 3 ml Albuterol/Ipratropium (Ipratropium-Albuterol 3 Ml Neb) 3 ml INHALATION RT-Q4H PRN PRN Reason: Shortness Of Breath Or Wheezing Last Admin: 03/20/22 05:15 Dose: 3 ml Alprazolam (Alprazolam 0.5 Mg Tab) 0.5 mg PO DAILY PRN PRN Reason: Anxiety Last Admin: 03/23/22 20:22 Dose: 0.5 mg Aspirin (Aspirin 325 Mg Tab) 325 mg PO DAILY@0630 [facility] Last Admin: 03/23/22 05:46 Dose: 325 mg Atenolol (Atenolol 25 Mg Tab) 25 mg PO BID@0630,1830 [facility] Last Admin: 03/23/22 17:35 Dose: 25 mg Atorvastatin Calcium (Atorvastatin 20 Mg Tab) 20 mg PO HS@1830 [facility] Last Admin: 03/23/22 17:35 Dose: 20 mg Furosemide (Furosemide 10 Mg/Ml 4 Ml Vial) 40 mg IV Q12HR [facility] Last Admin: 03/23/22 20:01 Dose: 40 mg Heparin Sodium (Porcine) (Heparin Sodium,Porcine/Pf 5,000 Unit/0.5 Ml Syringe) 5,000 unit SQ Q8HR [facility] Last Admin: 03/24/22 01:56 Dose: 5,000 unit Melatonin (Melatonin 5 Mg Tablet) 5 mg PO Q2D@2100 [facility] Last Admin: 03/23/22 20:05 Dose: 5 mg Miscellaneous Information (Potassium Replacement Protocol 1 Each Misc) 1 each MISCELLANE DAILY PRN; Protocol PRN Reason: Per Protocol Oseltamivir Phosphate (Oseltamivir 60 Mg/10 Ml Oral Syringe) 30 mg PO Q12HR [facility]; Protocol Stop: 03/24/22 21:01 Last Admin: 03/23/22 20:54 Dose: 30 mg Sodium Chloride (Sodium Chloride 0.9% Flush 10 Ml Syringe) 10 ml IV BID [facility] Last Admin: 03/23/22 20:05 Dose: 10 ml Physical exam: Patient is lying in the bed asleep but arousable, continues with a weak cough, awake alert and oriented x1-2... HEENT: Normocephalic. Neck is supple. Pupils reactive. Nostrils clear. Oral cavity is moist. Neck reveals no JVD, carotid bruits, or thyromegaly. CHEST EXAMINATION: Trachea is central. Symmetrical expansion. Bibasilar diminished sounds and scattered crackles. Nonlabored breathing.. CARDIAC: Normal S1, S2 with no gallops. No murmurs ABDOMEN: Soft. Bowel sounds present. Nontender. No organomegaly. No abdominal bruits. Extremities: reveal no edema. No clubbing or cyanosis Neurologically awake, alert, oriented x1-2. Underlying dementia. No gross focal neurologic deficit. Diffusely weak Skin: No rash or skin lesions. Psychiatric: Cooperative. Could not be assessed completely. Musculoskeletal: No joint swelling or deformity. Normal range of motion. Assessment: Acute influenza A infection Acute hypoxic respiratory failure secondary to influenza a and CHF. Requiring oxygen at 4 L via nasal cannula. Hyponatremia, most likely related to poor oral intake and also a component of IV Lasix Acute CHF. Ejection fraction not known. History of coronary disease status post CABG History of cardioversion Atrial fibrillation with rapid ventricular rate, currently rate controlled Hypertension Hyperlipidemia Dementia Anxiety DVT prophylaxis with heparin subcu No code Plan: Recommend to continue current medications and management with cardiology following Patient is continued on IV Lasix diuresing well although urine output is fair cardiology recommending increasing IV Lasix to 40 mg twice daily and close monitoring of output and will follow with labs in the morning. Encouraged increased activity as tolerated and oral intake Patient maintained on Tamiflu and will continue Recommend continue DuoNeb treatments Will need to discuss with case management about treatment plan moving forward as plan is to return to ECF once stabilized and discharged. Due to multiple complex medical issues, Prognosis is definitely guarded. The impression and plan of care has been dictated by Yasemen Chamorro, Nurse Practitioner as directed. Dr. Roxanna MD I have performed a history and examination and MDM of this patient, discussed the same with the dictator, and agree with the dictator's assessment and plan as written ,documented as a scribe. Based on total visit time, I have performed more than 50% of the visit. Objective - Vital Signs Vital signs: Vital Signs Temp 98.5 F 03/23/22 09:07 Pulse 92 03/23/22 09:07 Resp 19 03/23/22 09:07 BP 106/66 03/23/22 09:07 Pulse Ox 93 L 03/23/22 09:07 FiO2 Intake & Output 03/22/22 03/23/22 03/23/22 18:59 06:59 18:59 Intake Total 300 Output Total 200 Balance -200 300 Intake: Oral 300 Output: Urine 200 Other: Voiding Method External Catheter External Catheter # Voids 1 # Bowel Movements 1 - Labs CBC & Chem 7: 03/23/22 06:16 03/23/22 06:16 Labs: Abnormal Lab Results - Last 24 Hours (Table) 03/22/22 03/22/22 03/22/22 Range/Units 06:23 06:23 06:23 WBC 12.81 H (4.50-10.00) X 10*3/uL RBC 3.69 L (4.10-5.20) X 10*6/uL Hgb 11.6 L (12.0-15.0) g/dL Hct 34.7 L (37.2-46.3) % RDW 14.8 H (11.5-14.5) % Neutrophils # 8.71 H (1.80-7.70) X 10*3/uL Monocytes # 1.57 H (0.20-1.00) X 10*3/uL Sodium (137-145) mmol/L Chloride 94 L (96-109) mmol/L Carbon Dioxide 32.0 H (20.0-27.5) mmol/L BUN 29.4 H (9.0-27.0) mg/dL BUN/Creatinine Ratio 34.83 H (12.00-20.00) Ratio Glucose (74-99) mg/dL Calcium 8.3 L (8.7-10.3) mg/dL Procalcitonin 0.29 H (0.02-0.09) ng/mL 03/23/22 03/23/22 Range/Units 06:16 06:16 WBC 13.2 H (4.50-10.00) X 10*3/uL RBC (4.10-5.20) X 10*6/uL Hgb (12.0-15.0) g/dL Hct (37.2-46.3) % RDW (11.5-14.5) % Neutrophils # 10.2 H (1.80-7.70) X 10*3/uL Monocytes # (0.20-1.00) X 10*3/uL Sodium 130 L (137-145) mmol/L Chloride 92 L (96-109) mmol/L Carbon Dioxide (20.0-27.5) mmol/L BUN 32 H (9.0-27.0) mg/dL BUN/Creatinine Ratio (12.00-20.00) Ratio Glucose 113 H (74-99) mg/dL Calcium 7.9 L (8.7-10.3) mg/dL Procalcitonin (0.02-0.09) ng/mL Microbiology - Last 24 Hours (Table) 03/19/22 15:34 Blood Culture - Preliminary Blood No Growth after 72 hours 03/19/22 15:34 Blood Culture - Preliminary Blood No Growth after 72 hours
[2022-03-24] MEDS: ASPIRIN 325 MG TAB PO SCH (06:10)
[2022-03-24] MEDS: atenoloL 25 MG TAB PO SCH ×2 (06:10→18:07)
[2022-03-24] MEDS: FUROSEMIDE 10 MG/ML 4 ML VIAL IV SCH ×2 (08:39→22:06)
[2022-03-24] MEDS: IPRATROPIUM-ALBUTEROL 3 ML NEB INHALATION SCH ×4 (08:53→19:37)
[2022-03-24 09:07] LABS: Basophils # (A) 0.04 X 10*3/uL (0.00-0.10); Basophils % (A) 0.3 %; Eosinophils # (A) 0.07 X 10*3/uL (0.04-0.35); Eosinophils % (A) 0.6 %; HCT 35.2 % (37.2-46.3); HGB 11.7 g/dL (12.0-15.0); Immature Grans, Automated 0.3 %; Lymphocytes # (A) 2.11 X 10*3/uL (0.90-5.00); Lymphocytes % (A) 17.5 %; MCH 30.5 pg (27.0-32.0); MCHC 33.2 g/dL (32.0-37.0); MCV 91.9 fL (80.0-97.0); Mean Platelet Volume 10.2 fL (9.5-12.2); Monocytes # (A) 1.42 X 10*3/uL (0.20-1.00); Monocytes % (A) 11.8 %; NRBC Per 100 WBC 0 /100 WBCS (0.0-0.0); Neutrophils # (A) 8.36 X 10*3/uL (1.80-7.70); Neutrophils % (A) 69.5 %; Platelet Count 190 X 10*3/uL (140-440); RBC 3.83 X 10*6/uL (4.10-5.20); RDW 14.2 % (11.5-14.5); WBC 12.04 X 10*3/uL (4.50-10.00)
--- NOTE | 2022-03-24 09:07 | P.PN ---
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 She underwent an echo which revealed preserved left ventricular systolic function. March 222021 The patient was seen and evaluated this morning. She remains hypoxic. She is somewhat with historian. On examination she still congested with bilateral rhonchi/wheezing. No lower eccentric his edema. Currently she is on Lasix IV at 20 mg twice a day she has been diuresing well. The echo showed preserved left ventricle systolic function was normal significant valvular abnormalities. At this point I would advise continue the current dose of Lasix IV and continue monitor the kidney function and electrolytes and follow-up with the patient 03/23/2022 The patient was seen and evaluated this morning. Unfortunately she still short of breath. She still wheezing. She still hypoxic. On examination she does have bilateral expiratory wheezing bilateral rhonchi. She is not making good urine on the current dose of Lasix which is 20 mg twice a day IV. I'm going to increase the dose to 40 mg IV twice a day. Meanwhile continue the current medical regimen and continue monitor the kidney function and electrolytes and follow-up with the patient 03/24/2022 Patient examined this morning at the bedside. Patient denies chest pain or pressure. She reports SOB. She remains on IV lasix. Vital signs are stable. PHYSICAL EXAM: VITAL SIGNS: Reviewed. GENERAL: Well-developed in no acute distress. NECK: Supple. No JVD or thyromegaly LUNGS: Irrespirations even and unlabored. Lungs diminished with bibasilar crack les. HEART: Regular rate and rhythm. S1 and S2 heard. EXTREMITIES: Normal range of motion. No clubbing or cyanosis. Peripheral pulses intact. No lower extremity edema ASSESSMENT: Acute hypoxic respiratory failure Permanent atrial fibrillation with controlled heart rate. The patient is not on anticoagulation for unknown reason Influenza A infection Heart failure with a preserved ejection fraction exacerbation Underlying dementia Valvular heart disease status post mitral and tricuspid valve repair Multiple comorbid conditions PLAN: Continue current cardiac medications Continue IV lasix Daily weights, accurate I&O, and monitoring of kidney function Further recommendations pending patient course Nurse practitioner note has been reviewed by physician. Signing provider agrees with the documented findings, assessment, and plan of care. Objective - Vital Signs Vital signs: Vital Signs Temp 98.4 F 03/24/22 02:00 Pulse 91 03/24/22 02:00 Resp 18 03/24/22 02:00 BP 118/71 03/24/22 02:00 Pulse Ox 94 L 03/24/22 02:00 FiO2 Intake & Output 03/23/22 03/24/22 03/24/22 18:59 06:59 18:59 Intake Total 250 Output Total 450 Balance -200 Intake: Oral 250 Output: Urine 450 Other: Voiding Method External Catheter # Voids 3 1 - Labs CBC & Chem 7: 03/23/22 06:16 03/23/22 06:16 Labs: Microbiology - Last 24 Hours (Table) 03/19/22 15:34 Blood Culture - Preliminary Blood No Growth after 96 hours 03/19/22 15:34 Blood Culture - Preliminary Blood No Growth after 96 hours
[2022-03-24 09:34] LABS: African American GFR (CKD) 96.3 (60.0-200.0); Anion Gap 9.6 mmol/L (10.00-18.00); BUN/Creat Ratio 50.64 Ratio (12.00-20.00); Blood Urea Nitrogen 27.9 mg/dL (9.0-27.0); Calcium 8.6 mg/dL (8.7-10.3); Carbon Dioxide 30.7 mmol/L (20.0-27.5); Non-African American GFR(CKD) 83.1 (60.0-200.0); Potassium 3.5 mmol/L (3.5-5.5)
[2022-03-24] MEDS: OSELTAMIVIR 60 MG/10 ML ORAL SYRINGE PO SCH ×2 (10:34→22:13)
[2022-03-24] MEDS: ATORVASTATIN 20 MG TAB PO SCH (18:07)
[2022-03-25] MEDS: HEPARIN SODIUM,PORCINE/PF 5,000 UNIT/0.5 ML SYRINGE SQ SCH ×3 (00:55→15:28)
--- NOTE | 2022-03-25 05:47 | P.PN ---
Subjective Progress Note Date: 03/24/22 Patient is 89-year-old female with known history of coronary artery disease history of CABG in January 2013, history of cardioversion, dementia, hypertension, hyperlipidemia, anxiety was brought to the hospital by family due to complaints of generalized weakness and suspected fall. Patient has been havi ng cough since Thursday. Family noticed in the videocamera that patient was kneeling over the chair and had a fall. She was attempted to get up using the chair to pull herself up. Patient was brought to the hospital by EMS. Patient was having cough and congestion. On admission patient is febrile at T-max 102.2. Pulse ox 88% on room air. Patient denies any complaints of chest pain. No nausea vomiting abdominal pain or diarrhea. Denies any recent illnesses. Cough without any sputum production. Chest x-ray showed suggestive of mild right pleural effusion. CT head showed no acute intracranial process. Nonspecific white matter changes likely secondary to chronic small vessel ischemic disease. CTA chest showed there is motion artifact without definitive pulmonary embolus. No central embolus. Cardiomegaly with trace bilateral pleural effusions and suggestion of pulmonary vascular congestion correlate for CHF. EKG showed atrial fibrillation with rapid ventricular response. Heart rate 103. Laboratory data showed WBC 7.9 hemoglobin 12.7 and platelets 190 D-dimer 1.53. Sodium 139 potassium 3.8 chloride 105 bicarb is 26 BUN 17 creatinine 0.51 and blood sugar is 145 AST 43 ALT 22 alk phos 620 troponin x1 negative and proBNP 3140 Influenza type B detected. Patient was given a dose of 40 mg IV Lasix in the ER. 03/21/2022 Patient is currently in the medical floor. Able to sit in the chair. No complaints of chest pain. Patient still having cough and congestion. Continued on IV Lasix 20 mg to 12. Patient was seen by cardiology and 2D echocardiogram was ordered. Patient has been afebrile. Blood pressure 121/68 pulse 108 respiration 20 and pulse ox 92% on 4 L oxygen via nasal cannula. T-max 100.0. Laboratory data showed WBC 7.67 globin 12.12 platelets 184 and potassium 3.2 which is being replaced. BUN 21.8 and creatinine 0.8 and calcium 8.5. Patient is on atenolol 25 mg twice daily. Patient is also on Tamiflu. 03/22/2022 She was seen and evaluated in follow-up today asleep although arousable. Cardiology following patient is maintained on IV Lasix twice daily and 2-D echo has been reviewed. Patient with congestion and weak cough and overall feeling unwell. Patient not eating very well and encouraged oral intake. Patient continues on Tamiflu. Patient is currently afebrile and denies chest pain or palpitations. Patient continues with cough and generalized weakness. Will discuss with case management about discharge planning sometime next week ari y. Follow-up labs and recommend replace electrolytes per protocol. Patient is on IV Lasix and will obtain chest x-ray. Encouraged oral intake and will attempt incentive spirometer use 03/23/2022 Patient is seen in follow-up this morning and after reviewing labs patient is hyponatremic with a sodium of 130, potassium is 3.7, creatinine is stable at 0.66 and WBC is 13.2. Hemoglobin is stable at 12.1. Patient is continued on 4 L via nasal cannula with an oxygen saturation of 93%. Cardiology following recommending increasing dose of Lasix as chest x-ray continues to show pulmonary edema with vascular congestion. Patient's oral intake is poor and overall prognosis remains extremely guarded. Patient is afebrile and continues to be dyspneic on exam patient continuously keeps taking her oxygen off and needs constant redirection. 03/24/2022 Patient is seen in follow-up this morning currently sitting up in the chair appears more awake and alert today. Patient is maintained on 4 L via nasal cannula with saturations above 90%. Cardiology following and recommended to continue with increased dose of Lasix for another 24 hours with follow-up chest x-ray and labs in a.m. Patient's oral intake continues to be severe and needs encouragement and assistance with meals. Will discuss with case management about returning to ECF once stabilized and discharged. She is currently afebrile with no reports of worsening shortness of breath or chest pain. Review of systems: Unable to obtain as patient is lethargic All medications have been reviewed Active Medications Acetaminophen (Acetaminophen Tab 500 Mg Tab) 1,000 mg PO Q6H PRN PRN Reason: Pain Last Admin: 03/23/22 20:22 Dose: 1,000 mg Albuterol/Ipratropium (Ipratropium-Albuterol 3 Ml Neb) 3 ml INHALATION RT-QID MANJEET Last Admin: 03/24/22 19:37 Dose: 3 ml Albuterol/Ipratropium (Ipratropium-Albuterol 3 Ml Neb) 3 ml INHALATION RT-Q4H PRN PRN Reason: Shortness Of Breath Or Wheezing Last Admin: 03/20/22 05:15 Dose: 3 ml Alprazolam (Alprazolam 0.5 Mg Tab) 0.5 mg PO DAILY PRN PRN Reason: Anxiety Last Admin: 03/23/22 20:22 Dose: 0.5 mg Aspirin (Aspirin 325 Mg Tab) 325 mg PO DAILY@0630 [facility] Last Admin: 03/24/22 06:10 Dose: 325 mg Atenolol (Atenolol 25 Mg Tab) 25 mg PO BID@0630,1830 [facility] Last Admin: 03/24/22 18:07 Dose: 25 mg Atorvastatin Calcium (Atorvastatin 20 Mg Tab) 20 mg PO HS@1830 [facility] Last Admin: 03/24/22 18:07 Dose: 20 mg Furosemide (Furosemide 10 Mg/Ml 4 Ml Vial) 40 mg IV Q12HR [facility] Last Admin: 03/24/22 22:06 Dose: 40 mg Heparin Sodium (Porcine) (Heparin Sodium,Porcine/Pf 5,000 Unit/0.5 Ml Syringe) 5,000 unit SQ Q8HR [facility] Last Admin: 03/25/22 00:55 Dose: 5,000 unit Melatonin (Melatonin 5 Mg Tablet) 5 mg PO Q2D@2100 [facility] Last Admin: 03/23/22 20:05 Dose: 5 mg Miscellaneous Information (Potassium Replacement Protocol 1 Each Misc) 1 each M ISCELLANE DAILY PRN; Protocol PRN Reason: Per Protocol Sodium Chloride (Sodium Chloride 0.9% Flush 10 Ml Syringe) 10 ml IV BID [facility] Last Admin: 03/24/22 22:06 Dose: 10 ml Physical exam: Patient is sitting up in the chair, continues with a weak cough, awake alert and oriented x1-2... HEENT: Normocephalic. Neck is supple. Pupils reactive. Nostrils clear. Oral cavity is moist. Neck reveals no JVD, carotid bruits, or thyromegaly. CHEST EXAMINATION: Trachea is central. Symmetrical expansion. Bibasilar diminished sounds and scattered crackles. Nonlabored breathing.. CARDIAC: Normal S1, S2 with no gallops. No murmurs ABDOMEN: Soft. Bowel sounds present. Nontender. No organomegaly. No abdominal bruits. Extremities: reveal no edema. No clubbing or cyanosis Neurologically awake, alert, oriented x1-2. Underlying dementia. No gross focal neurologic deficit. Diffusely weak Skin: No rash or skin lesions. Psychiatric: Cooperative. Could not be assessed completely. Musculoskeletal: No joint swelling or deformity. Normal range of motion. Assessment: Acute influenza A infection Acute hypoxic respiratory failure secondary to influenza a and CHF. Requiring oxygen at 4 L via nasal cannula. Hyponatremia, most likely related to poor oral intake and also a component of IV Lasix Acute CHF. Ejection fraction not known. History of coronary disease status post CABG History of cardioversion Atrial fibrillation with rapid ventricular rate, currently rate controlled Hypertension Hyperlipidemia Dementia Anxiety DVT prophylaxis with heparin subcu No code Plan: Recommend to continue current medications and management with cardiology following Patient is continued on IV Lasix 40 mg twice daily cardiology recommends an additional 24 hours at this dose and will follow-up with repeat labs and a chest x-ray in the a.m. Encouraged increased activity as tolerated and oral intake Patient maintained on Tamiflu and will continue Recommend continue DuoNeb treatments Will need to discuss with case management about treatment plan moving forward as plan is to return to ECF once stabilized and discharged. Possible discharge in the next 24-48 hours Due to multiple complex medical issues, Prognosis is definitely guarded. The impression and plan of care has been dictated by Yasmeen Chamorro, Nurse Practitioner as directed. Dr. Morales MD I have performed a history and examination and MDM of this patient, discussed the same with the dictator, and agree with the dictator's assessment and plan as written ,documented as a scribe. Based on total visit time, I have performed more than 50% of the visit. Objective - Vital Signs Vital signs: Vital Signs Temp 98.2 F 03/25/22 02:00 Pulse 86 03/25/22 02:00 Resp 18 03/25/22 02:00 BP 118/66 03/25/22 02:00 Pulse Ox 94 L 03/25/22 02:00 FiO2 Intake & Output 03/24/22 03/24/22 03/25/22 06:59 18:59 06:59 Intake Total 250 Output Total 450 Balance -200 Weight 36.5 kg Intake: Oral 250 Output: Urine 450 Other: Voiding Method Diaper Diaper # Voids 1 - Labs CBC & Chem 7: 03/24/22 06:37 03/24/22 06:37 Labs: Abnormal Lab Results - Last 24 Hours (Table) 03/24/22 03/24/22 Range/Units 06:37 06:37 WBC 12.04 H (4.50-10.00) X 10*3/uL RBC 3.83 L (4.10-5.20) X 10*6/uL Hgb 11.7 L (12.0-15.0) g/dL Hct 35.2 L (37.2-46.3) % Neutrophils # 8.36 H (1.80-7.70) X 10*3/uL Monocytes # 1.42 H (0.20-1.00) X 10*3/uL Sodium 132 L (135-145) mmol/L Chloride 92 L (96-109) mmol/L Carbon Dioxide 30.7 H (20.0-27.5) mmol/L Anion Gap 9.60 L (10.00-18.00) mmol/L BUN 27.9 H (9.0-27.0) mg/dL BUN/Creatinine Ratio 50.64 H (12.00-20.00) Ratio Calcium 8.6 L (8.7-10.3) mg/dL Microbiology - Last 24 Hours (Table) 03/19/22 15:34 Blood Culture - Preliminary Blood No Growth after 120 hours 03/19/22 15:34 Blood Culture - Preliminary Blood No Growth after 120 hours
[2022-03-25] MEDS: atenoloL 25 MG TAB PO SCH ×2 (06:18→15:28)
[2022-03-25] MEDS: ASPIRIN 325 MG TAB PO SCH (06:18)
--- NOTE | 2022-03-25 08:20 | XR ---
EXAMINATION TYPE: XR chest 1V portable DATE OF EXAM: 03/25/2022 6:48 AM COMPARISON: Chest radiographs from 03/23/2022, CT chest 03/11/2022 TECHNIQUE: XR chest 1V portable Portable AP radiograph of the chest. CLINICAL INDICATION:Female, 89 years old with history of short of breath; FINDINGS: Lungs/Pleura: There is no evidence of pleural effusion, focal consolidation, or pneumothorax. Pleura l effusion seen on prior CT are more conspicuous. Pulmonary vascularity: Unremarkable. Heart/mediastinum: Cardiomediastinal silhouette is enlarged and stable. Post valve repair changes. Musculoskeletal: No acute osseous pathology. Midline sternotomy wires are noted. IMPRESSION: Similar appearance of the lungs with Cardiomegaly and mild pulmonary vascular congestion.
[2022-03-25] MEDS: IPRATROPIUM-ALBUTEROL 3 ML NEB INHALATION SCH ×4 (08:38→19:15)
[2022-03-25 08:48] LABS: Anion Gap 10.7 mmol/L (10.00-18.00); BUN/Creat Ratio 34.57 Ratio (12.00-20.00); Blood Urea Nitrogen 24.2 mg/dL (9.0-27.0); Calcium 8.8 mg/dL (8.7-10.3); Carbon Dioxide 33.3 mmol/L (20.0-27.5); Non-African American GFR(CKD) 76.8 (60.0-200.0); Potassium 3.5 mmol/L (3.5-5.5)
[2022-03-25] MEDS: FUROSEMIDE 10 MG/ML 4 ML VIAL IV SCH ×2 (09:14→21:22)
--- NOTE | 2022-03-25 10:17 | P.PN ---
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 She underwent an echo which revealed preserved left ventricular systolic function. March 222021 The patient was seen and evaluated this morning. She remains hypoxic. She is somewhat with historian. On examination she still congested with bilateral rhonchi/wheezing. No lower eccentric his edema. Currently she is on Lasix IV at 20 mg twice a day she has been diuresing well. The echo showed preserved left ventricle systolic function was normal significant valvular abnormalities. At this point I would advise continue the current dose of Lasix IV and continue monitor the kidney function and electrolytes and follow-up with the patient 03/23/2022 The patient was seen and evaluated this morning. Unfortunately she still short of breath. She still wheezing. She still hypoxic. On examination she does have bilateral expiratory wheezing bilateral rhonchi. She is not making good urine on the current dose of Lasix which is 20 mg twice a day IV. I'm going to increase the dose to 40 mg IV twice a day. Meanwhile continue the current medical regimen and continue monitor the kidney function and electrolytes and follow-up with the patient 03/24/2022 Patient examined this morning at the bedside. Patient denies chest pain or pressure. She reports SOB. She remains on IV lasix. Vital signs are stable. 03/25/2022 Patient examined at the bedside. Patient denies chest pain or pressure. She continues to sound congested and has a productive cough upon examination. She remains on IV lasix. She is incontinent of urine so intake and output has not been accurate. Vital signs are stable. Creatinine today 0.70. Chest x-ray from this morning reveals cardiomegaly with mild pulmonary vascular congestion. PHYSICAL EXAM: Thorough physical exam not completed secondary to limited evaluation/examination due to Influenza ASSESSMENT: Acute hypoxic respiratory failure Permanent atrial fibrillation with controlled heart rate. The patient is not on anticoagulation for unknown reason Influenza A infection Heart failure with a preserved ejection fraction exacerbation Underlying dementia Valvular heart disease status post mitral and tricuspid valve repair Multiple comorbid conditions PLAN: Continue current cardiac medications Continue IV lasix Daily weights, accurate I&O, and monitoring of kidney function Further recommendations pending patient course Nurse practitioner note has been reviewed by physician. Signing provider agrees with the documented findings, assessment, and plan of care. Objective - Vital Signs Vital signs: Vital Signs Temp 98.2 F 03/25/22 08:00 Pulse 92 03/25/22 08:51 Resp 20 03/25/22 08:00 BP 109/67 03/25/22 08:00 Pulse Ox 94 L 03/25/22 08:00 FiO2 Intake & Output 03/24/22 03/25/22 03/25/22 18:59 06:59 18:59 Weight 36.5 kg Other: Voiding Method Diaper Diaper - Labs CBC & Chem 7: 03/24/22 06:37 03/25/22 05:51 Labs: Abnormal Lab Results - Last 24 Hours (Table) 03/25/22 Range/Units 05:51 Chloride 91 L (96-109) mmol/L Carbon Dioxide 33.3 H (20.0-27.5) mmol/L BUN/Creatinine Ratio 34.57 H (12.00-20.00) Ratio Microbiology - Last 24 Hours (Table) 03/19/22 15:34 Blood Culture - Preliminary Blood No Growth after 120 hours 03/19/22 15:34 Blood Culture - Preliminary Blood No Growth after 120 hours
--- NOTE | 2022-03-25 12:11 | P.PN ---
Subjective Progress Note Date: 03/25/22 Patient is 89-year-old female with known history of coronary artery disease history of CABG in January 2013, history of cardioversion, dementia, hypertension, hyperlipidemia, anxiety was brought to the hospital by family due to complaints of generalized weakness and suspected fall. Patient has been havi ng cough since Thursday. Family noticed in the videocamera that patient was kneeling over the chair and had a fall. She was attempted to get up using the chair to pull herself up. Patient was brought to the hospital by EMS. Patient was having cough and congestion. On admission patient is febrile at T-max 102.2. Pulse ox 88% on room air. Patient denies any complaints of chest pain. No nausea vomiting abdominal pain or diarrhea. Denies any recent illnesses. Cough without any sputum production. Chest x-ray showed suggestive of mild right pleural effusion. CT head showed no acute intracranial process. Nonspecific white matter changes likely secondary to chronic small vessel ischemic disease. CTA chest showed there is motion artifact without definitive pulmonary embolus. No central embolus. Cardiomegaly with trace bilateral pleural effusions and suggestion of pulmonary vascular congestion correlate for CHF. EKG showed atrial fibrillation with rapid ventricular response. Heart rate 103. Laboratory data showed WBC 7.9 hemoglobin 12.7 and platelets 190 D-dimer 1.53. Sodium 139 potassium 3.8 chloride 105 bicarb is 26 BUN 17 creatinine 0.51 and blood sugar is 145 AST 43 ALT 22 alk phos 620 troponin x1 negative and proBNP 3140 Influenza type B detected. Patient was given a dose of 40 mg IV Lasix in the ER. 03/21/2022 Patient is currently in the medical floor. Able to sit in the chair. No complaints of chest pain. Patient still having cough and congestion. Continued on IV Lasix 20 mg to 12. Patient was seen by cardiology and 2D echocardiogram was ordered. Patient has been afebrile. Blood pressure 121/68 pulse 108 respiration 20 and pulse ox 92% on 4 L oxygen via nasal cannula. T-max 100.0. Laboratory data showed WBC 7.67 globin 12.12 platelets 184 and potassium 3.2 which is being replaced. BUN 21.8 and creatinine 0.8 and calcium 8.5. Patient is on atenolol 25 mg twice daily. Patient is also on Tamiflu. 03/22/2022 She was seen and evaluated in follow-up today asleep although arousable. Cardiology following patient is maintained on IV Lasix twice daily and 2-D echo has been reviewed. Patient with congestion and weak cough and overall feeling unwell. Patient not eating very well and encouraged oral intake. Patient continues on Tamiflu. Patient is currently afebrile and denies chest pain or palpitations. Patient continues with cough and generalized weakness. Will discuss with case management about discharge planning sometime next week ari y. Follow-up labs and recommend replace electrolytes per protocol. Patient is on IV Lasix and will obtain chest x-ray. Encouraged oral intake and will attempt incentive spirometer use 03/23/2022 Patient is seen in follow-up this morning and after reviewing labs patient is hyponatremic with a sodium of 130, potassium is 3.7, creatinine is stable at 0.66 and WBC is 13.2. Hemoglobin is stable at 12.1. Patient is continued on 4 L via nasal cannula with an oxygen saturation of 93%. Cardiology following recommending increasing dose of Lasix as chest x-ray continues to show pulmonary edema with vascular congestion. Patient's oral intake is poor and overall prognosis remains extremely guarded. Patient is afebrile and continues to be dyspneic on exam patient continuously keeps taking her oxygen off and needs constant redirection. 03/24/2022 Patient is seen in follow-up this morning currently sitting up in the chair appears more awake and alert today. Patient is maintained on 4 L via nasal cannula with saturations above 90%. Cardiology following and recommended to continue with increased dose of Lasix for another 24 hours with follow-up chest x-ray and labs in a.m. Patient's oral intake continues to be severe and needs encouragement and assistance with meals. Will discuss with case management about returning to ECF once stabilized and discharged. She is currently afebrile with no reports of worsening shortness of breath or chest pain. 03/25/2022 Patient is seen and evaluated in follow-up today currently on 3 L and oxygen saturations have been over 90%. Patient continues to sound congested with rhonchi and crackles noted. Patient is maintained on IV Lasix and labs reviewed within normal limits. Cardiology is following recommending to continue with IV Lasix today and will follow-up with labs. Chest x-ray today was ordered showing pulmonary congestion. Case management is following and patient will be going to ECF and will require insurance authorization. Will submit for authorization. Recommend PT/OT therapy. Encourage oral intake and recommend supervision with meals and aspiration precautions of head of the bed elevated 30-45 at all times. Patient is currently afebrile with no reports of worsening shortness of breath or chest pain noted. Review of systems: Unable to obtain as patient just says yes to everything All medications have been reviewed Active Medications Acetaminophen (Acetaminophen Tab 500 Mg Tab) 1,000 mg PO Q6H PRN PRN Reason: Pain Last Admin: 03/23/22 20:22 Dose: 1,000 mg Albuterol/Ipratropium (Ipratropium-Albuterol 3 Ml Neb) 3 ml INHALATION RT-QID [facility] Last Admin: 03/25/22 08:38 Dose: 3 ml Albuterol/Ipratropium (Ipratropium-Albuterol 3 Ml Neb) 3 ml INHALATION RT-Q4H PRN PRN Reason: Shortness Of Breath Or Wheezing Last Admin: 03/20/22 05:15 Dose: 3 ml Alprazolam (Alprazolam 0.5 Mg Tab) 0.5 mg PO DAILY PRN PRN Reason: Anxiety Last Admin: 03/23/22 20:22 Dose: 0.5 mg Aspirin (Aspirin 325 Mg Tab) 325 mg PO DAILY@0630 [facility] Last Admin: 03/25/22 06:18 Dose: 325 mg Atenolol (Atenolol 25 Mg Tab) 25 mg PO BID@0630,1830 [facility] Last Admin: 03/25/22 06:18 Dose: 25 mg Atorvastatin Calcium (Atorvastatin 20 Mg Tab) 20 mg PO HS@1830 [facility] Last Admin: 03/24/22 18:07 Dose: 20 mg Furosemide (Furosemide 10 Mg/Ml 4 Ml Vial) 40 mg IV Q12HR [facility] Last Admin: 03/25/22 09:14 Dose: 40 mg Heparin Sodium (Porcine) (Heparin Sodium,Porcine/Pf 5,000 Unit/0.5 Ml Syringe) 5,000 unit SQ Q8HR [facility] Last Admin: 03/25/22 09:44 Dose: 5,000 unit Melatonin (Melatonin 5 Mg Tablet) 5 mg PO Q2D@2100 [facility] Last Admin: 03/23/22 20:05 Dose: 5 mg Miscellaneous Information (Potassium Replacement Protocol 1 Each Misc) 1 each MISCELLANE DAILY PRN; Protocol PRN Reason: Per Protocol Sodium Chloride (Sodium Chloride 0.9% Flush 10 Ml Syringe) 10 ml IV BID MANJEET Last Admin: 03/25/22 09:44 Dose: Not Given Physical exam: Patient is sitting up in the chair, continues with a weak cough, awake alert and oriented x1-2... HEENT: Normocephalic. Neck is supple. Pupils reactive. Nostrils clear. Oral cavity is moist. Neck reveals no JVD, carotid bruits, or thyromegaly. CHEST EXAMINATION: Trachea is central. Symmetrical expansion. Bibasilar diminished sounds and scattered crackles. Nonlabored breathing.. CARDIAC: Normal S1, S2 with no gallops. No murmurs ABDOMEN: Soft. Bowel sounds present. Nontender. No organomegaly. No abdominal bruits. Extremities: reveal no edema. No clubbing or cyanosis Neurologically awake, alert, oriented x1-2. Underlying dementia. No gross focal neurologic deficit. Diffusely weak Skin: No rash or skin lesions. Psychiatric: Cooperative. Could not be assessed completely. Musculoskeletal: No joint swelling or deformity. Normal range of motion. Assessment: Acute influenza A infection Acute hypoxic respiratory failure secondary to influenza a and CHF. Requiring oxygen at 4 L via nasal cannula. Hyponatremia, most likely related to poor oral intake and also a component of IV Lasix Acute CHF. Ejection fraction not known. History of coronary disease status post CABG History of cardioversion Atrial fibrillation with rapid ventricular rate, currently rate controlled Hypertension Hyperlipidemia Dementia Anxiety DVT prophylaxis with heparin subcu No code Plan: Recommend to continue current medications and management with cardiology following Patient is continued on IV Lasix 40 mg twice daily cardiology recommends an additional 24 hours at this dose and will follow-up with repeat labs as chest x- ray is still suggestive of pulmonary vascular congestion Encouraged increased activity as tolerated and oral intake Patient maintained on Tamiflu and will continue Recommend continue DuoNeb treatments, will add Symbicort Discussed with case management about treatment plan moving forward as plan is to go to ECF once stabilized and discharged and she will require insurance authorization. Instructed to submit authorization. Possible discharge in the next 24-48 hours Due to multiple complex medical issues, Prognosis is definitely guarded. The impression and plan of care has been dictated by Yasmeen Chamorro, Nurse Practitioner as directed. Dr. Morales MD I have performed a history and examination and MDM of this patient, discussed the same with the dictator, and agree with the dictator's assessment and plan as written ,documented as a scribe. Based on total visit time, I have performed more than 50% of the visit. Objective - Vital Signs Vital signs: Vital Signs Temp 98.2 F 03/25/22 08:00 Pulse 92 03/25/22 08:51 Resp 20 03/25/22 08:00 BP 109/67 03/25/22 08:00 Pulse Ox 94 L 03/25/22 08:00 FiO2 Intake & Output 03/24/22 03/25/22 03/25/22 18:59 06:59 18:59 Weight 36.5 kg Other: Voiding Method Diaper Diaper - Labs CBC & Chem 7: 03/24/22 06:37 03/25/22 05:51 Labs: Abnormal Lab Results - Last 24 Hours (Table) 03/25/22 Range/Units 05:51 Chloride 91 L (96-109) mmol/L Carbon Dioxide 33.3 H (20.0-27.5) mmol/L BUN/Creatinine Ratio 34.57 H (12.00-20.00) Ratio Microbiology - Last 24 Hours (Table) 03/19/22 15:34 Blood Culture - Preliminary Blood No Growth after 120 hours 03/19/22 15:34 Blood Culture - Preliminary Blood No Growth after 120 hours
[2022-03-25] MEDS: ATORVASTATIN 20 MG TAB PO SCH (15:28)
[2022-03-25] MEDS: MELATONIN 5 MG TABLET PO SCH (21:22)
[2022-03-25] MEDS: ACETAMINOPHEN TAB 500 MG TAB PO PRN (21:22)
[2022-03-26] MEDS: SYMBICORT 160-4.5 MCG INHALER INHALATION SCH ×3 (00:42→21:38)
[2022-03-26] MEDS: HEPARIN SODIUM,PORCINE/PF 5,000 UNIT/0.5 ML SYRINGE SQ SCH ×3 (00:47→16:26)
[2022-03-26] MEDS: atenoloL 25 MG TAB PO SCH ×2 (06:26→17:45)
[2022-03-26] MEDS: ASPIRIN 325 MG TAB PO SCH (06:26)
[2022-03-26] MEDS: IPRATROPIUM-ALBUTEROL 3 ML NEB INHALATION SCH ×4 (08:44→21:39)
[2022-03-26] MEDS: FUROSEMIDE 10 MG/ML 4 ML VIAL IV SCH (09:47)
[2022-03-26 10:56] LABS: Anion Gap 13.5 mmol/L (10.00-18.00); BUN/Creat Ratio 34.14 Ratio (12.00-20.00); Blood Urea Nitrogen 23.9 mg/dL (9.0-27.0); Calcium 9.3 mg/dL (8.7-10.3); Carbon Dioxide 33.5 mmol/L (20.0-27.5); Non-African American GFR(CKD) 76.8 (60.0-200.0); Potassium 3.5 mmol/L (3.5-5.5)
--- NOTE | 2022-03-26 11:03 | P.PN ---
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 She underwent an echo which revealed preserved left ventricular systolic function. March 222021 The patient was seen and evaluated this morning. She remains hypoxic. She is somewhat with historian. On examination she still congested with bilateral rhonchi/wheezing. No lower eccentric his edema. Currently she is on Lasix IV at 20 mg twice a day she has been diuresing well. The echo showed preserved left ventricle systolic function was normal significant valvular abnormalities. At this point I would advise continue the current dose of Lasix IV and continue monitor the kidney function and electrolytes and follow-up with the patient 03/23/2022 The patient was seen and evaluated this morning. Unfortunately she still short of breath. She still wheezing. She still hypoxic. On examination she does have bilateral expiratory wheezing bilateral rhonchi. She is not making good urine on the current dose of Lasix which is 20 mg twice a day IV. I'm going to increase the dose to 40 mg IV twice a day. Meanwhile continue the current medical regimen and continue monitor the kidney function and electrolytes and follow-up with the patient 03/24/2022 Patient examined this morning at the bedside. Patient denies chest pain or pressure. She reports SOB. She remains on IV lasix. Vital signs are stable. 03/25/2022 Patient examined at the bedside. Patient denies chest pain or pressure. She continues to sound congested and has a productive cough upon examination. She remains on IV lasix. She is incontinent of urine so intake and output has not been accurate. Vital signs are stable. Creatinine today 0.70. Chest x-ray from this morning reveals cardiomegaly with mild pulmonary vascular congestion. 03/26/2022 Patient examined this morning at the bedside. Patient denies chest pain or pressure. She currently denies shortness of breath. She remains on IV Lasix. BMP from this morning is currently pending PHYSICAL EXAM: Thorough physical exam not completed secondary to limited evaluation/examination due to Influenza ASSESSMENT: Acute hypoxic respiratory failure Permanent atrial fibrillation with controlled heart rate. 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 Begin oral lasix tomorrow 40mg daily Daily weights, accurate I&O, and monitoring of kidney function No further inpatient recommendations from a cardiac standpoint We will sign off. Please reconsult if needed. Nurse practitioner note has been reviewed by physician. Signing provider agrees with the documented findings, assessment, and plan of care. Objective - Vital Signs Vital signs: Vital Signs Temp 98.4 F 03/26/22 08:00 Pulse 88 03/26/22 09:00 Resp 18 03/26/22 08:00 BP 101/65 03/26/22 08:00 Pulse Ox 92 L 03/26/22 08:00 FiO2 Intake & Output 03/25/22 03/26/22 03/26/22 18:59 06:59 18:59 Output Total 500 700 Balance -500 -700 Weight 85.5 kg Output: Urine 500 700 Other: Voiding Method Diaper Diaper External Catheter External Catheter - Labs CBC & Chem 7: 03/24/22 06:37 03/26/22 06:31 Labs: Microbiology - Last 24 Hours (Table) 03/19/22 15:34 Blood Culture - Final Blood No Growth after 144 hours 03/19/22 15:34 Blood Culture - Final Blood No Growth after 144 hours
[2022-03-26] MEDS: ATORVASTATIN 20 MG TAB PO SCH (17:45)
[2022-03-27] MEDS: HEPARIN SODIUM,PORCINE/PF 5,000 UNIT/0.5 ML SYRINGE SQ SCH ×2 (00:44→09:46)
--- NOTE | 2022-03-27 03:50 | P.PN ---
Subjective Progress Note Date: 03/26/22 Patient is 89-year-old female with known history of coronary artery disease history of CABG in January 2013, history of cardioversion, dementia, hypertension, hyperlipidemia, anxiety was brought to the hospital by family due to complaints of generalized weakness and suspected fall. Patient has been havi ng cough since Thursday. Family noticed in the videocamera that patient was kneeling over the chair and had a fall. She was attempted to get up using the chair to pull herself up. Patient was brought to the hospital by EMS. Patient was having cough and congestion. On admission patient is febrile at T-max 102.2. Pulse ox 88% on room air. Patient denies any complaints of chest pain. No nausea vomiting abdominal pain or diarrhea. Denies any recent illnesses. Cough without any sputum production. Chest x-ray showed suggestive of mild right pleural effusion. CT head showed no acute intracranial process. Nonspecific white matter changes likely secondary to chronic small vessel ischemic disease. CTA chest showed there is motion artifact without definitive pulmonary embolus. No central embolus. Cardiomegaly with trace bilateral pleural effusions and suggestion of pulmonary vascular congestion correlate for CHF. EKG showed atrial fibrillation with rapid ventricular response. Heart rate 103. Laboratory data showed WBC 7.9 hemoglobin 12.7 and platelets 190 D-dimer 1.53. Sodium 139 potassium 3.8 chloride 105 bicarb is 26 BUN 17 creatinine 0.51 and blood sugar is 145 AST 43 ALT 22 alk phos 620 troponin x1 negative and proBNP 3140 Influenza type B detected. Patient was given a dose of 40 mg IV Lasix in the ER. 03/21/2022 Patient is currently in the medical floor. Able to sit in the chair. No complaints of chest pain. Patient still having cough and congestion. Continued on IV Lasix 20 mg to 12. Patient was seen by cardiology and 2D echocardiogram was ordered. Patient has been afebrile. Blood pressure 121/68 pulse 108 respiration 20 and pulse ox 92% on 4 L oxygen via nasal cannula. T-max 100.0. Laboratory data showed WBC 7.67 globin 12.12 platelets 184 and potassium 3.2 which is being replaced. BUN 21.8 and creatinine 0.8 and calcium 8.5. Patient is on atenolol 25 mg twice daily. Patient is also on Tamiflu. 03/22/2022 She was seen and evaluated in follow-up today asleep although arousable. Cardiology following patient is maintained on IV Lasix twice daily and 2-D echo has been reviewed. Patient with congestion and weak cough and overall feeling unwell. Patient not eating very well and encouraged oral intake. Patient continues on Tamiflu. Patient is currently afebrile and denies chest pain or palpitations. Patient continues with cough and generalized weakness. Will discuss with case management about discharge planning sometime next week ari y. Follow-up labs and recommend replace electrolytes per protocol. Patient is on IV Lasix and will obtain chest x-ray. Encouraged oral intake and will attempt incentive spirometer use 03/23/2022 Patient is seen in follow-up this morning and after reviewing labs patient is hyponatremic with a sodium of 130, potassium is 3.7, creatinine is stable at 0.66 and WBC is 13.2. Hemoglobin is stable at 12.1. Patient is continued on 4 L via nasal cannula with an oxygen saturation of 93%. Cardiology following recommending increasing dose of Lasix as chest x-ray continues to show pulmonary edema with vascular congestion. Patient's oral intake is poor and overall prognosis remains extremely guarded. Patient is afebrile and continues to be dyspneic on exam patient continuously keeps taking her oxygen off and needs constant redirection. 03/24/2022 Patient is seen in follow-up this morning currently sitting up in the chair appears more awake and alert today. Patient is maintained on 4 L via nasal cannula with saturations above 90%. Cardiology following and recommended to continue with increased dose of Lasix for another 24 hours with follow-up chest x-ray and labs in a.m. Patient's oral intake continues to be severe and needs encouragement and assistance with meals. Will discuss with case management about returning to ECF once stabilized and discharged. She is currently afebrile with no reports of worsening shortness of breath or chest pain. 03/25/2022 Patient is seen and evaluated in follow-up today currently on 3 L and oxygen saturations have been over 90%. Patient continues to sound congested with rhonchi and crackles noted. Patient is maintained on IV Lasix and labs reviewed within normal limits. Cardiology is following recommending to continue with IV Lasix today and will follow-up with labs. Chest x-ray today was ordered showing pulmonary congestion. Case management is following and patient will be going to ECF and will require insurance authorization. Will submit for authorization. Recommend PT/OT therapy. Encourage oral intake and recommend supervision with meals and aspiration precautions of head of the bed elevated 30-45 at all times. Patient is currently afebrile with no reports of worsening shortness of breath or chest pain noted. 03/26/2022 Patient is seen in follow-up this morning maintain 2-3 L via nasal cannula. Patient is lethargic although easily arousable. Cardiology following and recommending transitioning to oral Lasix in the a.m. Patient with significant weakness with physical therapy recommending rehab in case management following continuing to wait on insurance authorization. Encouraged oral intake and increased activity as tolerated. Recommend sitting out of the bed frequent times per day. No reports of chest pain or worsening shortness of breath noted. Patient is afebrile. Review of systems: Unable to obtain as patient just says yes to everything, dementia All medications have been reviewed Active Medications Acetaminophen (Acetaminophen Tab 500 Mg Tab) 1,000 mg PO Q6H PRN PRN Reason: Pain Last Admin: 03/25/22 21:22 Dose: 1,000 mg Albuterol/Ipratropium (Ipratropium-Albuterol 3 Ml Neb) 3 ml INHALATION RT-QID [facility] Last Admin: 03/26/22 21:39 Dose: 3 ml Albuterol/Ipratropium (Ipratropium-Albuterol 3 Ml Neb) 3 ml INHALATION RT-Q4H PRN PRN Reason: Shortness Of Breath Or Wheezing Last Admin: 03/20/22 05:15 Dose: 3 ml Alprazolam (Alprazolam 0.5 Mg Tab) 0.5 mg PO DAILY PRN PRN Reason: Anxiety Last Admin: 03/23/22 20:22 Dose: 0.5 mg Aspirin (Aspirin 325 Mg Tab) 325 mg PO DAILY@0630 [facility] Last Admin: 03/26/22 06:26 Dose: 325 mg Atenolol (Atenolol 25 Mg Tab) 25 mg PO BID@0630,1830 [facility] Last Admin: 03/26/22 17:45 Dose: 25 mg Atorvastatin Calcium (Atorvastatin 20 Mg Tab) 20 mg PO HS@1830 [facility] Last Admin: 03/26/22 17:45 Dose: 20 mg Budesonide/Formoterol Fumarate (Symbicort 160-4.5 Mcg Inhaler) 2 puff INHALATION RT-BID [facility] Last Admin: 03/26/22 21:38 Dose: 2 puff Furosemide (Furosemide 40 Mg Tab) 40 mg PO DAILY [facility] Heparin Sodium (Porcine) (Heparin Sodium,Porcine/Pf 5,000 Unit/0.5 Ml Syringe) 5,000 unit SQ Q8HR [facility] Last Admin: 03/27/22 00:44 Dose: 5,000 unit Melatonin (Melatonin 5 Mg Tablet) 5 mg PO Q2D@2100 [facility] Last Admin: 03/25/22 21:22 Dose: 5 mg Miscellaneous Information (Potassium Replacement Protocol 1 Each Misc) 1 each MISCELLANE DAILY PRN; Protocol PRN Reason: Per Protocol Sodium Chloride (Sodium Chloride 0.9% Flush 10 Ml Syringe) 10 ml IV BID [facility] Last Admin: 03/26/22 20:24 Dose: 10 ml Physical exam: Patient is sitting up in the bed, continues with a weak cough, awake alert and oriented x1-2... HEENT: Normocephalic. Neck is supple. Pupils reactive. Nostrils clear. Oral cavity is moist. Neck reveals no JVD, carotid bruits, or thyromegaly. CHEST EXAMINATION: Trachea is central. Symmetrical expansion. Bibasilar diminished sounds and faint crackles. Nonlabored breathing.. CARDIAC: Normal S1, S2 with no gallops. No murmurs ABDOMEN: Soft. Bowel sounds present. Nontender. No organomegaly. No abdominal bruits. Extremities: reveal no edema. No clubbing or cyanosis Neurologically awake, alert, oriented x1-2. Underlying dementia. No gross focal neurologic deficit. Diffusely weak Skin: No rash or skin lesions. Psychiatric: Cooperative. Could not be assessed completely. Musculoskeletal: No joint swelling or deformity. Normal range of motion. Assessment: Acute influenza A infection Acute hypoxic respiratory failure secondary to influenza a and CHF. Requiring oxygen at 4 L via nasal cannula. Hyponatremia, most likely related to poor oral intake and also a component of IV Lasix Acute CHF. Ejection fraction not known. History of coronary disease status post CABG History of cardioversion Atrial fibrillation with rapid ventricular rate, currently rate controlled Hypertension Hyperlipidemia Dementia Anxiety DVT prophylaxis with heparin subcu No code Plan: Recommend to continue current medications and management with cardiology following Patient is continued on IV Lasix 40 mg twice daily cardiology recommends transitioning to oral Lasix 40 mg daily in a.m. Encouraged increased activity as tolerated and oral intake Patient has completed a course of Tamiflu Recommend continue DuoNeb treatments, and Symbicort Discussed with case management about treatment plan moving forward as plan is to go to ECF once stabilized and discharged and she will require insurance authorization. Possible discharge in the next 24 hours pending insurance authorization Due to multiple complex medical issues, Prognosis is definitely guarded. The impression and plan of care has been dictated by Yasmeen Chamorro, Nurse Practitioner as directed. Dr. Morales MD I have performed a history and examination and MDM of this patient, discussed the same with the dictator, and agree with the dictator's assessment and plan as written ,documented as a scribe. Based on total visit time, I have performed more than 50% of the visit. Objective - Vital Signs Vital signs: Vital Signs Temp 98.4 F 03/26/22 08:00 Pulse 88 03/26/22 12:20 Resp 18 03/26/22 08:00 BP 101/65 03/26/22 08:00 Pulse Ox 92 L 03/26/22 08:00 FiO2 Intake & Output 03/25/22 03/26/22 03/26/22 18:59 06:59 18:59 Output Total 500 700 Balance -500 -700 Weight 85.5 kg Output: Urine 500 700 Other: Voiding Method Diaper Diaper External Catheter External Catheter - Labs CBC & Chem 7: 03/24/22 06:37 03/26/22 06:31 Labs: Abnormal Lab Results - Last 24 Hours (Table) 03/26/22 Range/Units 06:31 Chloride 89 L (96-109) mmol/L Carbon Dioxide 33.5 H (20.0-27.5) mmol/L BUN/Creatinine Ratio 34.14 H (12.00-20.00) Ratio Microbiology - Last 24 Hours (Table) 03/19/22 15:34 Blood Culture - Final Blood No Growth after 144 hours 03/19/22 15:34 Blood Culture - Final Blood No Growth after 144 hours
[2022-03-27] MEDS: ASPIRIN 325 MG TAB PO SCH (06:39)
[2022-03-27] MEDS: atenoloL 25 MG TAB PO SCH (06:39)
[2022-03-27] MEDS: IPRATROPIUM-ALBUTEROL 3 ML NEB INHALATION SCH ×3 (08:19→16:24)
[2022-03-27] MEDS: SYMBICORT 160-4.5 MCG INHALER INHALATION SCH (08:19)
[2022-03-27] MEDS ORDERED: FUROSEMIDE 40 MG TAB PO SCH (09:00)
[2022-03-27 10:42] VITALS: BMI 21.9
--- NOTE | 2022-03-27 14:38 | P.DS ---
Providers Date of admission: 03/19/22 19:01 Expected date of discharge: 03/27/22 Attending physician: Mavis Nielsen Primary care physician: Darryl Noguera [facility] Course: Final diagnosis Acute influenza A infection Acute hypoxic respiratory failure secondary to influenza a and CHF. Requiring oxygen at 4 L via nasal cannula. Hyponatremia, most likely related to poor oral intake and also a component of IV Lasix Acute CHF. Ejection fraction not known. History of coronary disease status post CABG History of cardioversion Atrial fibrillation with rapid ventricular rate, currently rate controlled Hypertension Hyperlipidemia Dementia Anxiety DVT prophylaxis with heparin subcu No code Discharge disposition Patient is being discharged in a stable condition with guarded prognosis to [facility]. Patient will follow-up with Dr. Noguera in the outpatient setting upon discharge. Patient is to continue with oral Lasix daily and recommend repeat BMP in the next 2-3 days. Patient to follow-up with cardiology outpatient. Total time taken is greater than 35 minutes. Hospital course This is a 89-year-old female who was recently admitted with increasing shortness of breath generalized weakness and falls. Patient being closely monitored also found to have influenza B infection and did receive an complete the course of Tamiflu. Patient seen and evaluated by cardiology maintained on IV Lasix for CHF exacerbation. Patient will continue on Lasix by mouth 40 mg daily and recommend close outpatient follow-up of electrolytes and kidney functions. Patient with extreme weakness and seen and evaluated by physical therapy rec [facility] and patient will be going to ECF today. Patient is continued on 3-4 L via nasal cannula will continue and wean FiO2 as tolerated. Patient with bronchial congestion and cough with a weak cough and unable to expectorate recommend an incentive spirometer at least 10 times per hour while awake and continue DuoNeb treatments. Patient is a no code and overall prognosis remains guarded. Patient is high risk for aspiration some recommend aspiration precautions. Currently no reports of chest pain, worsening shortness of breath, or palpitations. Patient is afebrile. No reports of nausea or vomiting and patient is tolerating diet. Oral intake is poor to fair and recommend supplements 3 times a day with meals and supervision with meals. Patient will be going to [facility] today. Extremely guarded prognosis. Physical exam: Gen: This is a 89-year-old female who is awake, alert and oriented 1-2, thin built, elderly appearing female HEENT: Head is atraumatic, normocephalic. Pupils equal, round. Sclerae is anicteric. NECK: Supple. No JVD. No lymphadenopathy. No thyromegaly. LUNGS: Diminished breath sounds bilaterally with some scattered rhonchi and bronchial congested noted on exam. No intercostal retractions. HEART: S1, S2 are muffled ABDOMEN: Soft. Bowel sounds are present. No masses. No tenderness. EXTREMITIES: No pedal edema. No calf tenderness. NEUROLOGICAL: Patient is awake, alert and oriented x3. Cranial nerves 2 through 12 are grossly intact. Diffusely weak Please refer to medication reconciliation sheet for a list of medications. The impression and plan of care has been dictated by Yasmeen Chamorro, Nurse Practitioner as directed. Dr. Morales MD I have performed a history and examination and MDM of this patient, discussed the same with the dictator, and agree with the dictator's assessment and plan as written ,documented as a scribe. Based on total visit time, I have performed more than 50% of the visit. Patient Condition at Discharge: Fair Plan - Discharge Summary Discharge Rx Participant: No New Discharge Prescriptions: New Ipratropium-Albuterol Nebulize [Duoneb 0.5 mg-3 mg/3 ml Soln] 3 ml INHALATION RT-Q4H PRN each PRN Reason: Shortness Of Breath Or Wheezing Furosemide [Lasix] 40 mg PO DAILY tab ALPRAZolam [Xanax] 0.5 mg PO DAILY PRN #2 tab PRN Reason: Anxiety Ipratropium-Albuterol Nebulize [Duoneb 0.5 mg-3 mg/3 ml Soln] 3 ml INHALATION RT-QID each Heparin Sodium,Porcine [Heparin Sodium] 5,000 unit SQ Q12HR 30 Days #60 each Budesonide-Formot 160-4.5 Mcg [Symbicort 160-4.5 Mcg Inhaler] 2 puff INHALATION RT-BID each Continue Simvastatin [Zocor] 40 mg PO HS@1830 Atenolol [Tenormin] 25 mg PO BID@0630,1830 Cranberry Fruit Extract [Cranberry] 500 mg PO DAILY Acetaminophen Tab [Tylenol] 1,000 mg PO Q6H PRN PRN Reason: Pain Aspirin 325 mg PO DAILY@0630 Melatonin 5 mg PO Q2D@2100 Discontinued Quinapril HCl [Accupril] 20 mg PO DAILY@629 ALPRAZolam [Xanax] 0.5 mg PO DAILY PRN PRN Reason: Anxiety Discharge Medication List Atenolol [Tenormin] 25 mg PO BID@0630,182910/18/13 [History] Simvastatin [Zocor] 40 mg PO HS@182910/18/13 [History] Acetaminophen Tab [Tylenol] 1,000 mg PO Q6H PRN 04/01/21 [History] Aspirin 325 mg PO DAILY@62904/01/21 [History] Cranberry Fruit Extract [Cranberry] 500 mg PO DAILY 03/19/22 [History] Melatonin 5 mg PO Q2D@209903/19/22 [History] ALPRAZolam [Xanax] 0.5 mg PO DAILY PRN #2 tab 03/27/22 [Rx] Budesonide-Formot 160-4.5 Mcg [Symbicort 160-4.5 Mcg Inhaler] 2 puff INHALATION RT-BID each 03/27/22 [Rx] Furosemide [Lasix] 40 mg PO DAILY tab 03/27/22 [Rx] Heparin Sodium,Porcine [Heparin Sodium] 5,000 unit SQ Q12HR 30 Days #60 each 03/27/22 [Rx] Ipratropium-Albuterol Nebulize [Duoneb 0.5 mg-3 mg/3 ml Soln] 3 ml INHALATION RT-Q4H PRN each 03/27/22 [Rx] Ipratropium-Albuterol Nebulize [Duoneb 0.5 mg-3 mg/3 ml Soln] 3 ml INHALATION RT-QID each 03/27/22 [Rx] Follow up Appointment(s)/Referral(s): [facility] Shlomo Gutiérrez, [NON-STAFF] - As Needed Darryl Noguera DO [Primary Care Provider] - 1-2 days Activity/Diet/Wound Care/Special Instructions: [facility] is going to [facility] Activity as tolerated Patient is to continue supplemental oxygen of 2-4 L Recommend continue with heart healthy diet Continue to encourage incentive spirometer at least 10 times every hour while awake Recommend continue with Lasix 40 mg daily recommend repeat BMP in 2-3 days Follow-up cardiology outpatient Recommend aspiration precautions with head of the bed elevated 30-45 at all times and supervision with meals continue ensure supplements 3 times a day with meals Discharge Disposition: TRANSFER TO SNF/ECF
[2022-03-27 14:44] VITALS: BP 120/69; PULSE 95; RESP 20; TEMP 99
== END 2022-03-27 15:50 | DRG 193 ==
LOC: EC 15:03 → OBSVTOIN 19:01 → 6NMEDSUR 19:01 → 4SSUR 20:38
PROVIDERS: ADMIT Hospitalist; ATTEND Hospitalist
DX: J10.1 Influenza due to other identified influenza virus with other respiratory manifestations (principal); I50.33 Acute on chronic diastolic (congestive) heart failure; J96.01 Acute respiratory failure with hypoxia; I48.21 Permanent atrial fibrillation; E87.1 Hypo-osmolality and hyponatremia; F03.94 Unspecified dementia, unspecified severity, with anxiety; I11.0 Hypertensive heart disease with heart failure; T50.1X5A Adverse effect of loop [high-ceiling] diuretics, initial encounter; I25.10 Atherosclerotic heart disease of native coronary artery without angina pectoris; E78.5 Hyperlipidemia, unspecified; R32 Unspecified urinary incontinence; Z79.82 Long term (current) use of aspirin; Z79.899 Other long term (current) drug therapy; Z82.49 Family history of ischemic heart disease and other diseases of the circulatory system; Z95.2 Presence of prosthetic heart valve; Z95.1 Presence of aortocoronary bypass graft; Z66 Do not resuscitate; Z20.822 Contact with and (suspected) exposure to COVID-19; Z71.3 Dietary counseling and surveillance; Z87.891 Personal history of nicotine dependence; Z91.81 History of falling
CPT/HCPCS: 36415; 70450; 71045; 71046; 71275; 80048; 80053; 80320; 83605; 83880; 84145; 84484; 85025; 85379; 85610; 85730; 87040; 87502; 87635; 93005; 93308; 94640; 94760; 96374; 96376; 99285

== ENCOUNTER 2022-08-03 13:17 | Emergency (ER) | payer MEDICARE, OTHER ==
[2022-08-03] MEDS ORDERED: GLUCAGON 1 MG/ML VIAL IVP STA (13:24)
[2022-08-03] MEDS ORDERED: ONDANSETRON 4 MG/2 ML VIAL IVP STA (13:24)
--- NOTE | 2022-08-03 13:54 | ED ---
General Adult HPI - General Chief complaint: ENT Stated complaint: Trouble swallowing Time Seen by Provider: 08/03/22 13:18 Source: EMS, RN notes reviewed Mode of arrival: EMS Limitations: language barrier, physical limitation - History of Present Illness Initial comments: 89-year-old female presents with concern for esophageal foreign body. Patient was at the care home where she resides, had been eating pork and suddenly began to vomit and was unable to handle her secretions. There was no difficulty breathing, no stridor. Patient is unable to contribute at all to the history. - Related Data Home Medications Medication Instructions Recorded Confirmed Atenolol [Tenormin] 25 mg PO BID@0630,1830 10/18/13 03/19/22 Simvastatin [Zocor] 40 mg PO HS@1830 10/18/13 03/19/22 Acetaminophen Tab [Tylenol] 1,000 mg PO Q6H PRN 04/01/21 03/19/22 Aspirin 325 mg PO DAILY@0630 04/01/21 03/19/22 Cranberry Fruit Extract [Cranberry] 500 mg PO DAILY 03/19/22 03/19/22 Melatonin 5 mg PO Q2D@2100 03/19/22 03/19/22 Previous Rx's Medication Instructions Recorded ALPRAZolam [Xanax] 0.5 mg PO DAILY PRN #2 tab 03/27/22 Budesonide-Formot 160-4.5 Mcg 2 puff INHALATION RT-BID each 03/27/22 [Symbicort 160-4.5 Mcg Inhaler] Furosemide [Lasix] 40 mg PO DAILY tab 03/27/22 Heparin Sodium,Porcine [Heparin 5,000 unit SQ Q12HR 30 Days #60 03/27/22 Sodium] each Ipratropium-Albuterol Nebulize 3 ml INHALATION RT-Q4H PRN each 03/27/22 [Duoneb 0.5 mg-3 mg/3 ml Soln] Ipratropium-Albuterol Nebulize 3 ml INHALATION RT-QID each 03/27/22 [Duoneb 0.5 mg-3 mg/3 ml Soln] Allergies Allergy/AdvReac Type Severity Reaction Status Date / Time No Known Allergies Allergy Verified 08/03/22 13:33 Review of Systems ROS Statement: Those systems with pertinent positive or pertinent negative responses have been documented in the HPI. ROS Other: All systems not noted in ROS Statement are negative. Past Medical History Past Medical History: Coronary Artery Disease (CAD), Dementia, Hyperlipidemia, Hypertension Additional Past Medical History / Comment(s): hypertension anxiety disorder History of Any Multi-Drug Resistant Organisms: None Reported Past Surgical History: Appendectomy, Coronary Bypass/CABG Additional Past Surgical History / Comment(s): CABG IN JAN 2013 WITH CARDIOVERSION Past Anesthesia/Blood Transfusion Reactions: No Reported Reaction Past Psychological History: Anxiety Smoking Status: Never smoker Past Alcohol Use History: Occasional Past Drug Use History: None Reported - Past Family History Father Additional Family Medical History / Comment(s): YOUNG FROM HEART ATTACK General Exam Limitations: language barrier, physical limitation General appearance: alert, in no apparent distress Head exam: Present: atraumatic, normocephalic Eye exam: Present: normal appearance, PERRL ENT exam: Present: normal oropharynx, mucous membranes dry Respiratory exam: Present: normal lung sounds bilaterally, chest wall tenderness. Absent: respiratory distress, wheezes Cardiovascular Exam: Present: regular rate, normal rhythm GI/Abdominal exam: Present: soft. Absent: distended, tenderness, guarding Neurological exam: Present: alert. Absent: oriented X3 Psychiatric exam: Present: normal affect, normal mood Skin exam: Present: warm, dry Course Vital Signs 08/03/22 13:26 Temperature 98.8 F Pulse Rate 107 H Respiratory 19 Rate Blood Pressure 176/100 O2 Sat by Pulse 95 Oximetry Medical Decision Making - Medical Decision Making Was pt. sent in by a medical professional or institution (, PA, SENSOR SPECIALIST, urgent care, hospital, or care home...) When possible be specific @ -Sent in from care home with concern for esophageal foreign body Did you speak to anyone other than the patient for history (EMS, parent, family, police, friend...)? What history was obtained from this source @ Patient's daughter is at bedside. Patient at baseline mental status, nonverbal. Did you review nursing and triage notes (agree or disagree)? Why? @ -I reviewed and agree with nursing and triage notes Were old charts reviewed (outside hosp., previous admission, EMS record, old EKG, old radiological studies, urgent care reports/EKG's, care home records)? Report findings @ -No old charts were reviewed Differential Diagnosis (chest pain, altered mental status, abdominal pain women, abdominal pain men, vaginal bleeding, weakness, fever, dyspnea, syncope, headache, dizziness, GI bleed, back pain, seizure, CVA, palpatations, mental health, musculoskeletal)? @ Esophageal foreign body. Airway obstruction EKG interpreted by me (3pts min.). @ -As above X-rays interpreted by me (1pt min.). @ No focal pneumonia, no acute findings, reviewed and interpreted by myself CT interpreted by me (1pt min.). @ -None done U/S interpreted by me (1pt. min.). @ -None done What testing was considered but not performed or refused? (CT, X-rays, U/S, labs)? Why? @ -None What meds were considered but not given or refused? Why? @ -None Did you discuss the management of the patient with other professionals ( professionals i.e. , PA, SENSOR SPECIALIST, lab, RT, psych nurse, administrator social welfare, ropeman, teacher, commanding officer homicide squad, heel caser)? Give summary @ -No Was smoking cessation discussed for >3mins.? @ -No Was critical care preformed (if so, how long)? @ -No Were there social determinants of health that impacted care today? How? (Homelessness, low income, unemployed, alcoholism, drug addiction, transportation, low edu. Level, literacy, decrease access to med. care, [facility], rehab)? @ -No Was there de-escalation of care discussed even if they declined (Discuss DNR or withdrawal of care, Hospice)? DNR status @ -No What co-morbidities impacted this encounter? (DM, HTN, Smoking, COPD, CAD, Cancer, CVA, ARF, Chemo, Hep., AIDS, mental health diagnosis, sleep apnea, morbid obesity)? @ Dementia Was patient admitted / discharged? Hospital course, mention meds given and route, prescriptions, significant lab abnormalities, going to OR and other pertinent info. @ 89-year-old female with choking episode, esophageal foreign body. Patient initially vomiting and unable to handle her secretions. No stridor. No respiratory distress no hypoxia. X-ray negative for aspiration or acute findings. Patient given glucagon, Zofran, and Valium and is able to clear this foreign body without intervention. She is able to drink and also on multiple occasions in the emergency department prior to discharge. Undiagnosed new problem with uncertain prognosis? @ -No Drug Therapy requiring intensive monitoring for toxicity (Heparin, Nitro, Insulin, Cardizem)? @ -No Were any procedures done? @ -No Diagnosis/symptom? @ Esophageal food impaction Acute, or Chronic, or Acute on Chronic? @ Acute Uncomplicated (without systemic symptoms) or Complicated (systemic symptoms)? @ Complicated Side effects of treatment? @ -No Exacerbation, Progression, or Severe Exacerbation? @ -No Poses a threat to life or bodily function? How? (Chest pain, USA, MS, pneumonia, PE, COPD, DKA, ARF, appy, cholecystitis, CVA, Diverticulitis, Homicidal, Suicidal, threat to staff... and all critical care pts) @ -No Disposition Clinical Impression: Food impaction of esophagus Disposition: HOME SELF-CARE Condition: Fair Instructions (If sedation given, give patient instructions): Esophageal Foreign Body (ED) Is patient prescribed a controlled substance at d/c from ED?: No Referrals: Darryl Noguera DO [STAFF PHYSICIAN] - 1-2 days Time of Disposition: 14:53
--- NOTE | 2022-08-03 14:43 | XR ---
EXAMINATION TYPE: XR chest 2V DATE OF EXAM: 08/03/2022 COMPARISON: 03/25/2022 INDICATION: Coughing TECHNIQUE: Frontal and lateral views of the chest are obtained. FINDINGS: The heart size is normal. The pulmonary vasculature is somewhat prominent. No suspicious consolidations evident.. IMPRESSION: 1. Clinical correlation for volume overload.
[2022-08-03 15:06] VITALS: BP 140/77; PULSE 90; RESP 18; TEMP 98.4
== END 2022-08-03 16:10 | disposition home or self-care (01) ==
LOC: EC 13:17 → EEVIPCON 13:17 → EC 16:10
DX: T18.128A Food in esophagus causing other injury, initial encounter (principal); I10 Essential (primary) hypertension; I25.10 Atherosclerotic heart disease of native coronary artery without angina pectoris; E78.5 Hyperlipidemia, unspecified; F03.90 Unspecified dementia, unspecified severity, without behavioral disturbance, psychotic disturbance, mood disturbance, and anxiety; Z79.82 Long term (current) use of aspirin; Z79.899 Other long term (current) drug therapy; Z95.1 Presence of aortocoronary bypass graft
CPT/HCPCS: 71046; 99284; 96374; 96375 ×2; J1610; J3360; J2405

== ENCOUNTER 2022-08-05 11:42 | Emergency (ER) | payer MEDICARE, OTHER ==
--- NOTE | 2022-08-05 12:15 | ED ---
General Adult HPI - General Chief complaint: Fall Stated complaint: Fall Time Seen by Provider: 08/05/22 11:52 Source: patient Mode of arrival: EMS Limitations: no limitations - History of Present Illness Initial comments: Dictation was produced using [employer] dictation software. please excuse any grammatical, word or spelling errors. Chief Complaint: 89-year-old female baseline anal 1 presents to emergency department after being found on the ground History of Present Illness: 89-year-old female with multiple comorbidities. According to EMS patient's alert and oriented 1 at baseline. She was found at the long term on the ground. Apparently she is also sent here for confusion and hypoxia of 88%. Patient's history of COPD she wears home O2. She does take an a coagulation medications. Patient unable to provide history of present illness due to baseline mentation. Unable to obtain ROS secondary to mental status - Related Data Home Medications Medication Instructions Recorded Confirmed Atenolol [Tenormin] 25 mg PO BID@0630,1830 10/18/13 03/19/22 Simvastatin [Zocor] 40 mg PO HS@1830 10/18/13 03/19/22 Acetaminophen Tab [Tylenol] 1,000 mg PO Q6H PRN 04/01/21 03/19/22 Aspirin 325 mg PO DAILY@0630 04/01/21 03/19/22 Cranberry Fruit Extract [Cranberry] 500 mg PO DAILY 03/19/22 03/19/22 Melatonin 5 mg PO Q2D@2100 03/19/22 03/19/22 Previous Rx's Medication Instructions Recorded ALPRAZolam [Xanax] 0.5 mg PO DAILY PRN #2 tab 03/27/22 Budesonide-Formot 160-4.5 Mcg 2 puff INHALATION RT-BID each 03/27/22 [Symbicort 160-4.5 Mcg Inhaler] Furosemide [Lasix] 40 mg PO DAILY tab 03/27/22 Heparin Sodium,Porcine [Heparin 5,000 unit SQ Q12HR 30 Days #60 03/27/22 Sodium] each Ipratropium-Albuterol Nebulize 3 ml INHALATION RT-Q4H PRN each 03/27/22 [Duoneb 0.5 mg-3 mg/3 ml Soln] Ipratropium-Albuterol Nebulize 3 ml INHALATION RT-QID each 03/27/22 [Duoneb 0.5 mg-3 mg/3 ml Soln] Allergies Allergy/AdvReac Type Severity Reaction Status Date / Time levofloxacin [From Levaquin] Allergy Anaphylaxis Verified 08/05/22 11:49 Review of Systems ROS Statement: Those systems with pertinent positive or pertinent negative responses have been documented in the HPI. ROS Other: All systems not noted in ROS Statement are negative. Past Medical History Past Medical History: Coronary Artery Disease (CAD), Dementia, Hyperlipidemia, Hypertension Additional Past Medical History / Comment(s): hypertension anxiety disorder History of Any Multi-Drug Resistant Organisms: None Reported Past Surgical History: Appendectomy, Coronary Bypass/CABG Additional Past Surgical History / Comment(s): CABG IN JAN 2013 WITH CARDIOVERSION Past Anesthesia/Blood Transfusion Reactions: No Reported Reaction Past Psychological History: Anxiety Smoking Status: Never smoker Past Alcohol Use History: Occasional Past Drug Use History: None Reported - Past Family History Father Additional Family Medical History / Comment(s): YOUNG FROM HEART ATTACK General Exam - General Exam Comments Initial Comments: PHYSICAL EXAM: General Impression: Alert and oriented x1/4, not in acute distress HEENT: Normocephalic atraumatic, extra-ocular movements intact, pupils equal and reactive to light bilaterally, mucous membranes moist. Cardiovascular: Heart regular rate and rhythm Chest: no retractions, no tachypnea, clear to auscultation bilaterally Abdomen: abdomen soft, non-tender, non-distended, no organomegaly Musculoskeletal: Pulses present and equal in all extremities, no peripheral edema Motor: no focal deficits noted Neurological: CN II-XII grossly intact, no focal motor or sensory deficits noted, follows commands, aphasic Skin: Intact with no visualized rashes Psych: Normal affect and mood Limitations: no limitations Course Vital Signs 08/05/22 08/05/22 11:46 13:53 Temperature 98.4 F Pulse Rate 98 82 Respiratory 18 14 Rate Blood Pressure 117/75 115/68 O2 Sat by Pulse 94 L 92 L Oximetry EKG Findings - EKG Comments: EKG Findings:: My EKG interpretation: Ventricular rate 88, A. fib, QRS 94, QTC 427. no QTC prolongation, no ST or T-wave changes noted. EKG compared to 03/11/2022 showing no changes. Overall, this EKG is unremarkable Medical Decision Making - Medical Decision Making Was pt. sent in by a medical professional or institution (CELIO Quick, COMMERCIAL REAL ESTATE SALES MANAGER, urgent care, hospital, or long term...) When possible be specific @ -No Did you speak to anyone other than the patient for history (EMS, parent, family, police, friend...)? What history was obtained from this source @ -Yes, see above History obtained from daughter, EMS and transfer documentation Did you review nursing and triage notes (agree or disagree)? Why? @ -Reviewed, agreed Were old charts reviewed (outside hosp., previous admission, EMS record, old EKG, old radiological studies, urgent care reports/EKG's, long term records)? Report findings @ -Transfer documentations [facility] were reviewed Differential Diagnosis (chest pain, altered mental status, abdominal pain women, abdominal pain men, vaginal bleeding, musculoskeletal, weakness, fever, dyspnea, syncope, headache, dizziness, GI bleed, back pain, seizure, CVA, palpatations, mental health)? @ -Differential Syncope: Valvular disease, hypertrophic cardiomyopathy, pulmonary embolism, tamponade, tachycardia, bradycardia, MD, hypovolemia, hemorrhage, dissection, anemia, intracranial hemorrhage, seizure, hypoglycemia, carbon monoxide poisoning, this is not meant to be an all-inclusive list. EKG interpreted by me (3pts min.). @ -As above X-rays interpreted by me (1pt min.). @ -Chest x-ray shows some effuse coarseness. Pelvis x-ray unremarkable CT interpreted by me (1pt min.). @ -Head and C-spine shows no acute processes U/S interpreted by me (1pt. min.). @ -None done What testing was considered but not performed or refused? (CT, X-rays, U/S, labs)? Why? @ -None What meds were considered but not given or refused? Why? @ -None Did you discuss the management of the patient with other professionals (professionals i.e. CELIO Quick, COMMERCIAL REAL ESTATE SALES MANAGER, lab, RT, psych nurse, social service manager, journeyman machinist, teacher, chief compliance officer, medical case worker)? Give summary @ -No Was smoking cessation discussed for >3mins.? @ -No Was critical care preformed (if so, how long)? @ -No Were there social determinants of health that impacted care today? How? (Homelessness, low income, unemployed, alcoholism, drug addiction, transportation, low edu. Level, literacy, decrease access to med. care, [facility], rehab)? @ -No Was there de-escalation of care discussed even if they declined (Discuss DNR or withdrawal of care, Hospice)? DNR status @ -No What co-morbidities impacted this encounter? (DM, HTN, Smoking, COPD, CAD, Cancer, CVA, ARF, Chemo, Hep., AIDS, mental health diagnosis, sleep apnea, morbid obesity)? @ -Chronic mental debility, frequent falls Was patient admitted / discharged? Hospital course, mention meds given and route, prescriptions, significant lab abnormalities, going to OR and other pertinent info. @ -89-year-old female sent to emergency Department from long term after concerns of fall. She is found on the ground. Patient's well-appearing she has no gross deformities. Vital signs stable. Daughter at the bedside reports that patient appears to be a baseline currently. Laboratory evaluation unremarkable. Urinalysis negative. No rhabdomyolysis. Imaging studies negative. Patient observed in emergency department for 3 hours and 25 minutes. Reevaluated bedside found to be similar condition. Blood pressures and oxygen levels are monitored throughout ER stay and found to be normal. Patient be discharged. Undiagnosed new problem with uncertain prognosis? @ -No Drug Therapy requiring intensive monitoring for toxicity (Heparin, Nitro, Insulin, Cardizem)? @ -No Were any procedures done? @ -No Diagnosis/symptom? Acute, or Chronic, or Acute on Chronic? Uncomplicated (without systemic symptoms) or Complicated (systemic symptoms)? @ -1.Fall Side effects of treatment? @ -No Exacerbation, Progression, or Severe Exacerbation? @ -No Poses a threat to life or bodily function? How? (Chest pain, USA, MD, pneumonia, PE, COPD, DKA, ARF, appy, cholecystitis, CVA, Diverticulitis, Homicidal, Suicidal, threat to staff... and all critical care pts) @ -No - Lab Data Result diagrams: 08/05/22 12:40 08/05/22 12:40 Lab Results 08/05/22 08/05/22 08/05/22 Range/Units 12:40 12:40 12:40 WBC 10.9 H (3.8-10.6) k/uL RBC 4.47 (3.80-5.40) m/uL Hgb 13.1 (11.4-16.0) gm/dL Hct 39.7 (34.0-46.0) % MCV 88.8 (80.0-100.0) fL MCH 29.4 (25.0-35.0) pg MCHC 33.2 (31.0-37.0) g/dL RDW 14.7 (11.5-15.5) % Plt Count 241 (150-450) k/uL MPV 7.5 Neutrophils % 68 % Lymphocytes % 16 % Monocytes % 9 % Eosinophils % 3 % Basophils % 1 % Neutrophils # 7.4 (1.3-7.7) k/uL Lymphocytes # 1.8 (1.0-4.8) k/uL Monocytes # 1.0 (0-1.0) k/uL Eosinophils # 0.3 (0-0.7) k/uL Basophils # 0.1 (0-0.2) k/uL PT 11.5 (9.0-12.0) sec INR 1.1 (<1.2) APTT 25.3 (22.0-30.0) sec Sodium (137-145) mmol/L Potassium (3.5-5.1) mmol/L Chloride (98-107) mmol/L Carbon Dioxide (22-30) mmol/L Anion Gap mmol/L BUN (7-17) mg/dL Creatinine (0.52-1.04) mg/dL Est GFR (CKD-EPI)AfAm (>60 ml/min/1.73 sqM) Est GFR (CKD-EPI)NonAf (>60 ml/min/1.73 sqM) Glucose (74-99) mg/dL Calcium (8.4-10.2) mg/dL Total Bilirubin (0.2-1.3) mg/dL AST (14-36) U/L ALT (4-34) U/L Alkaline Phosphatase (38-126) U/L Creatine Kinase (30-135) U/L Total Protein (6.3-8.2) g/dL Albumin (3.5-5.0) g/dL Urine Color Yellow Urine Appearance Clear (Clear) Urine pH 7.0 (5.0-8.0) Ur Specific [place] 1.006 (1.001-1.035) Urine Protein Negative (Negative) Urine Glucose (UA) Negative (Negative) Urine Ketones Negative (Negative) Urine Blood Negative (Negative) Urine Nitrite Negative (Negative) Urine Bilirubin Negative (Negative) Urine Urobilinogen <2.0 (<2.0) mg/dL Ur Leukocyte Esterase Negative (Negative) 08/05/22 Range/Units 12:40 WBC (3.8-10.6) k/uL RBC (3.80-5.40) m/uL Hgb (11.4-16.0) gm/dL Hct (34.0-46.0) % MCV (80.0-100.0) fL MCH (25.0-35.0) pg MCHC (31.0-37.0) g/dL RDW (11.5-15.5) % Plt Count (150-450) k/uL MPV Neutrophils % % Lymphocytes % % Monocytes % % Eosinophils % % Basophils % % Neutrophils # (1.3-7.7) k/uL Lymphocytes # (1.0-4.8) k/uL Monocytes # (0-1.0) k/uL Eosinophils # (0-0.7) k/uL Basophils # (0-0.2) k/uL PT (9.0-12.0) sec INR (<1.2) APTT (22.0-30.0) sec Sodium 136 L (137-145) mmol/L Potassium 3.6 (3.5-5.1) mmol/L Chloride 93 L (98-107) mmol/L Carbon Dioxide 36 H (22-30) mmol/L Anion Gap 7 mmol/L BUN 17 (7-17) mg/dL Creatinine 0.69 (0.52-1.04) mg/dL Est GFR (CKD-EPI)AfAm 89 (>60 ml/min/1.73 sqM) Est GFR (CKD-EPI)NonAf 78 (>60 ml/min/1.73 sqM) Glucose 105 H (74-99) mg/dL Calcium 8.7 (8.4-10.2) mg/dL Total Bilirubin 0.8 (0.2-1.3) mg/dL AST 23 (14-36) U/L ALT 15 (4-34) U/L Alkaline Phosphatase 73 (38-126) U/L Creatine Kinase 22 L (30-135) U/L Total Protein 6.6 (6.3-8.2) g/dL Albumin 3.6 (3.5-5.0) g/dL Urine Color Urine Appearance (Clear) Urine pH (5.0-8.0) Ur Specific [place] (1.001-1.035) Urine Protein (Negative) Urine Glucose (UA) (Negative) Urine Ketones (Negative) Urine Blood (Negative) Urine Nitrite (Negative) Urine Bilirubin (Negative) Urine Urobilinogen (<2.0) mg/dL Ur Leukocyte Esterase (Negative) Disposition Clinical Impression: Fall Disposition: HOME SELF-CARE Condition: Good Instructions (If sedation given, give patient instructions): Fall Prevention for Older Adults (ED) Is patient prescribed a controlled substance at d/c from ED?: No Referrals: Kam Robbins DO [Primary Care Provider] - 1-2 days Time of Disposition: 15:10
[2022-08-05 13:24] LABS: Basophils # (A) 0.1 k/uL (0-0.2); Basophils % (A) 1 %; Eosinophils # (A) 0.3 k/uL (0-0.7); Eosinophils % (A) 3 %; HCT 39.7 % (34.0-46.0); HGB 13.1 gm/dL (11.4-16.0); Lymphocytes # (A) 1.8 k/uL (1.0-4.8); Lymphocytes % (A) 16 %; MCH 29.4 pg (25.0-35.0); MCHC 33.2 g/dL (31.0-37.0); MCV 88.8 fL (80.0-100.0); Mean Platelet Volume 7.5; Monocytes % (A) 9 %; Neutrophils # (A) 7.4 k/uL (1.3-7.7); Neutrophils % (A) 68 %; Platelet Count 241 k/uL (150-450); RBC 4.47 m/uL (3.80-5.40); RDW 14.7 % (11.5-15.5); WBC 10.9 k/uL (3.8-10.6)
[2022-08-05 13:33] LABS: Albumin 3.6 g/dL (3.5-5.0); Calcium 8.7 mg/dL (8.4-10.2); Potassium 3.6 mmol/L (3.5-5.1); Total Bilirubin 0.8 mg/dL (0.2-1.3); Total Protein 6.6 g/dL (6.3-8.2)
[2022-08-05 13:35] LABS: INR 1.1 (<1.2); Partial Thromboplastin Time 25.3 sec (22.0-30.0); Prothrombin Time 11.5 sec (9.0-12.0)
--- NOTE | 2022-08-05 14:01 | CT ---
EXAMINATION TYPE: CT brain cspine wo con DATE OF EXAM: 08/05/2022 COMPARISON: Brain 03/19/2022 HISTORY: 89-year-old female confusion, ams, fall CT DLP: 1328.8 mGycm Automated exposure control for dose reduction was used. Technique: Examination of the head was done in axial plane without intravenous contrast. Coronal and sagittal reconstructions performed. CT of the cervical spine was obtained in axial plane without intravenous injection of contrast mater ial. Coronal and sagittal reformatted images were obtained from the axial views for evaluation of f ractures, spinal alignment and canal. FINDINGS: Head: There is no evidence of acute intracranial hemorrhage, acute ischemic changes, mass, mass-effect, or extra-axial fluid collection. There is no effacement of cerebral sulci or basal subarachnoid cister ns. There is no hydrocephalus. There is no midline shift. Franco-white matter distinction is preserv ed. Moderate patchy white matter hypodensities in both cerebral hemispheres. Mild generalized supratentor ial volume loss. Moderate mucosal thickening anterior ethmoid air cells. Rightward nasal septal deviation. Trace mucos al thickening right maxillary sinus. Mastoid air cells are well pneumatized. Orbits and globes are in tact. Cervical spine: No craniocervical junction abnormality, predental space widening, or prevertebral soft tissue swellin g. Degenerative change of the C1 dens articulation. Multilevel facet and uncovertebral joint arthropathy is present with degenerative grade 1 retrolisthe sis C4-C5 and C5-C6. Degenerative grade 1 anterolisthesis C7-T1, T1-T2, and T2-T3. No acute fracture seen of the cervical spine. Moderate multilevel spondylotic change. Changes result in moderate narrowing of the spinal canal at C 3-C4 and C5-C6. Moderate left neuroforaminal stenosis at C5-C6. Additional variable mild neuroforaminal stenoses thro ughout. Sagittal and coronal reformatted images confirm above findings. COMBINED IMPRESSION: 1. Mild generalized atrophy and moderate burden of small vessel ischemic disease. No acute intracrani al abnormality seen. 2. No acute fracture of the cervical spine. Moderate multilevel spondylotic change with degenerative grade 1 spondylolistheses of multiple levels mid cervical spine to the upper thoracic spine. 3. Moderate chronic right ethmoid sinus disease and mild within the maxillary sinuses.
--- NOTE | 2022-08-05 14:02 | XR ---
EXAMINATION TYPE: XR chest 2V DATE OF EXAM: 08/05/2022 COMPARISON: 08/03/2022 TECHNIQUE: PA and lateral views submitted. HISTORY: Coughing FINDINGS: The lungs are clear and there is no pneumothorax, pleural effusion, or focal pneumonia. Heart size normal and no overt failure. Osseous structures demonstrate hypertrophic and degenerative changes of the spine. Coarsened interstitium. There is postoperative change with atherosclerotic change aorta. A rthropathy of the shoulder with diffuse osteopenia. IMPRESSION: 1. No acute process. Coarsened interstitium could be associated with bronchitis or interstitial pneum onitis correlate clinically. Mild venous congestion is also in differential diagnosis but there is no pleural fluid so it is felt less likely. Correlate clinically.
--- NOTE | 2022-08-05 14:04 | XR ---
EXAMINATION TYPE: XR pelvis AP view DATE OF EXAM: 08/05/2022 COMPARISON: None HISTORY: Pain from fall TECHNIQUE: AP pelvis FINDINGS: Femoral heads articulate with the acetabulum. Symphysis pubis and sacroiliac joints are nor mal. No acute fractures or dislocations are evident. Bowel gas appears normal. Catheter is present. IMPRESSION: 1. No acute posttraumatic osseous abnormality
[2022-08-05 14:48] LABS: Appearance,Urine Clear (Clear); Bilirubin,Urine Negative (Negative); Blood,Urine Negative (Negative); Color,Urine Yellow; Glucose,Urine (UA) Negative (Negative); Ketones,Urine Negative (Negative); Leukocyte Esterase,Urine Negative (Negative); Nitrite,Urine Negative (Negative); Protein,Urine Negative (Negative); Specific Gravity,Urine 1.006 (1.001-1.035); Urobilinogen,Urine <2.0 mg/dL (<2.0)
[2022-08-05 17:13] VITALS: BP 106/71; PULSE 85; RESP 20; TEMP 97.6
== END 2022-08-05 17:13 | disposition home or self-care (01) ==
LOC: EC 11:42
DX: Z04.3 Encounter for examination and observation following other accident (principal); R41.82 Altered mental status, unspecified; R09.02 Hypoxemia; I10 Essential (primary) hypertension; I25.10 Atherosclerotic heart disease of native coronary artery without angina pectoris; J44.9 Chronic obstructive pulmonary disease, unspecified; F03.90 Unspecified dementia, unspecified severity, without behavioral disturbance, psychotic disturbance, mood disturbance, and anxiety; E78.5 Hyperlipidemia, unspecified; Z79.82 Long term (current) use of aspirin; Z79.899 Other long term (current) drug therapy; Z88.1 Allergy status to other antibiotic agents; Z90.49 Acquired absence of other specified parts of digestive tract; Z95.1 Presence of aortocoronary bypass graft
CPT/HCPCS: 36415; 70450; 71046; 72125; 72170; 80053; 81003; 82550; 85025; 85610; 85730; 93005; 99285

== ENCOUNTER 2022-10-08 16:39 | Observation (INO) | payer MEDICARE, OTHER ==
[2022-10-08] MEDS ORDERED: MORPHINE SULFATE 4 MG/ML SYRINGE IV STA (17:12)
[2022-10-08] MEDS ORDERED: SODIUM CHLORIDE 0.9% 1,000 ML IV STA (17:12)
[2022-10-08] MEDS ORDERED: ACETAMINOPHEN IV (For NPO) 1,000 MG in EMPTY BAG 1 BAG IVPB STA (17:15)
--- NOTE | 2022-10-08 17:15 | ED ---
Fall HPI - General Chief Complaint: Fall Stated Complaint: Fall Time Seen by Provider: 10/08/22 16:43 Source: EMS, RN notes reviewed, old records reviewed, Caregiver Mode of arrival: EMS Limitations: altered mental status, physical limitation - History of Present Illness Initial Comments: This is a 89-year-old female fall. Patient is a severe dementia with no history apparently able to answer yes and no which she can do currently. They are unsure of when she says yes or no with it does correlate with how she is feeling. Patient presents after a fall without blood thinners. She did hit her head no significant hematoma to her forehead. Otherwise history is unobtainable MD Complaint: fall -: hour(s) Fall From: standing When Fall Occurred: 1-3 hours GAMBLING MONITOR Fall Witnessed: yes, by living facility staff Place Fall Occurred: home Loss of Consciousness: none Prolonged Down Time?: no Symptoms Prior to Fall: none Location: head, face Severity: moderate Severity scale (1-10): 5 Context: tripped/slipped Associated Symptoms: headache - Related Data Home Medications Medication Instructions Recorded Confirmed Atenolol [Tenormin] 25 mg PO BID 10/18/13 10/08/22 Simvastatin [Zocor] 40 mg PO DAILY@1400 10/18/13 10/08/22 Acetaminophen Tab [Tylenol] 1,000 mg PO Q6H PRN 04/01/21 10/08/22 Melatonin 5 mg PO HS@199903/19/22 10/08/22 Apixaban [Eliquis] 2.5 mg PO BID@0800,1600 10/08/22 10/08/22 Cholecalciferol [Vitamin D3 (25 50 mcg PO DAILY 10/08/22 10/08/22 Mcg = 1000 Iu)] Cranberry-Vitamin C-Vitamin E 2 cap PO TID@0800,1200,1800 10/08/22 10/08/22 5495-24-9eb-Unit Capsule Escitalopram [Lexapro] 5 mg PO DAILY@0800 10/08/22 10/08/22 Furosemide [Lasix] 40 mg PO DAILY PRN 10/08/22 10/08/22 Furosemide [Lasix] 40 mg PO DAILY@0600 10/08/22 10/08/22 guaiFENesin [guaiFENesin Oral 200 mg PO Q4H PRN 10/08/22 10/08/22 Solution] Previous Rx's Medication Instructions Recorded Budesonide-Formot 160-4.5 Mcg 2 puff INHALATION RT-BID each 03/27/22 [Symbicort 160-4.5 Mcg Inhaler] Ipratropium-Albuterol Nebulize 3 ml INHALATION RT-Q4H PRN each 03/27/22 [Duoneb 0.5 mg-3 mg/3 ml Soln] dexAMETHasone [Decadron] 6 mg PO DAILY #7 tablet 10/11/22 Allergies Allergy/AdvReac Type Severity Reaction Status Date / Time levofloxacin [From Levaquin] Allergy Anaphylaxis Verified 10/08/22 17:37 Review of Systems ROS Statement: Those systems with pertinent positive or pertinent negative responses have been documented in the HPI. ROS Other: All systems not noted in ROS Statement are negative. Past Medical History Past Medical History: Coronary Artery Disease (CAD), Dementia, Hyperlipidemia, Hypertension Additional Past Medical History / Comment(s): hypertension anxiety disorder History of Any Multi-Drug Resistant Organisms: None Reported Past Surgical History: Appendectomy, Coronary Bypass/CABG Additional Past Surgical History / Comment(s): CABG IN JAN 2013 WITH CARDIOVERSION Past Anesthesia/Blood Transfusion Reactions: No Reported Reaction Past Psychological History: Anxiety Smoking Status: Never smoker Past Alcohol Use History: Occasional Past Drug Use History: None Reported - Past Family History Father Additional Family Medical History / Comment(s): YOUNG FROM HEART ATTACK General Exam Limitations: altered mental status General appearance: alert, in no apparent distress Head exam: Present: normocephalic, normal inspection. Absent: atraumatic (Significant hematoma to forehead) Eye exam: Present: normal appearance, PERRL, EOMI. Absent: scleral icterus, conjunctival injection, periorbital swelling ENT exam: Present: normal exam, mucous membranes moist Neck exam: Present: normal inspection. Absent: tenderness, meningismus, lymphadenopathy Respiratory exam: Present: normal lung sounds bilaterally. Absent: respiratory distress, wheezes, rales, rhonchi, stridor Cardiovascular Exam: Present: regular rate, normal rhythm, normal heart sounds. Absent: systolic murmur, diastolic murmur, rubs, gallop, clicks GI/Abdominal exam: Present: soft, normal bowel sounds. Absent: distended, tenderness, guarding, rebound, rigid Extremities exam: Present: normal inspection, full ROM, normal capillary refill. Absent: tenderness, pedal edema, joint swelling, calf tenderness Back exam: Present: normal inspection Neurological exam: Present: alert, oriented X3, CN II-XII intact Psychiatric exam: Present: normal affect, normal mood Skin exam: Present: warm, dry, intact, normal color. Absent: rash Course Vital Signs 10/08/22 10/08/22 10/08/22 16:41 17:46 21:00 Temperature 101.2 F H 98.1 F Pulse Rate 91 82 74 Respiratory 18 18 18 Rate Blood Pressure 151/79 132/72 98/58 O2 Sat by Pulse 96 94 L 98 Oximetry - Reevaluation(s) Reevaluation #1: 10/08/22 17:14 Medical record is reviewed Reevaluation #2: 10/08/22 Patient is improving with fever control and hydration Reevaluation #3: 10/08/22 Patient informed of results and questions answered Reevaluation #4: 10/08/22 17:14 Was pt. sent in by a medical professional or institution? @ -no Did you speak to anyone other than the patient for history? @ -no Did you review nursing and triage notes? @ -agree Were old charts reviewed? @ -yes Differential Diagnosis? @ -prior EKG interpreted by me (3pts min.)? @ -yes X-rays interpreted by me (1pt min.)? @ -yes CT interpreted by me (1pt min.)? @ -yes U/S interpreted by me (1pt. min.)? @ -no What testing was considered but not performed? (CT, X-rays, U/S, labs)? Why? @ -no What meds were considered but not given? Why? @ -no Did you discuss the management of the patient with other professionals? @ -no Did you reconcile home meds? @ -no Was smoking cessation discussed for >3mins.? @ -no Was critical care preformed (if so, how long)? @ -no Were there social determinants of health that impacted care today? How? (Homelessness, low income, unemployed, alcoholism, drug addiction, transportation, low edu. Level, literacy, decrease access to med. care, nursing home, rehab)? @ -no Was there de-escalation of care discussed even if they declined? (Discuss DNR or withdrawal of care, Hospice)? @ -no What co-morbidities impacted this encounter? (DM, HTN, Smoking, COPD, CAD, Cancer, CVA, Hep., AIDS, mental health diagnosis, sleep apnea, morbid obesity)? @ -none Was patient admitted / discharged? @ -89 female to the ER for evaluation of fall severe weakness patient has fever coronavirus, patient's father resultant forehead hematoma which we do not need significant treatment for. Otherwise negative patient will be admitted for coronavirus and fever with supportive care Admitted Undiagnosed new problem with uncertain prognosis? @ -no Drug Therapy requiring intensive monitoring for toxicity (Heparin, Nitro, Insulin, Cardizem)? @ -no Were any procedures done? @ -no Diagnosis/symptom? @ -Fever, fall, coronavirus Acute, or Chronic, or Acute on Chronic? @ -acute Uncomplicated (without systemic symptoms) or Complicated (systemic symptoms)? @ -complicated Side effects of treatment? @ -no Exacerbation, Progression, or Severe Exacerbation] @ -no Poses a threat to life or bodily function? @ -yes fever coronavirus with falls, head trauma Medical Decision Making - Medical Decision Making 89 female to the ER for evaluation of fall severe weakness patient has fever coronavirus, patient's father resultant forehead hematoma which we do not need significant treatment for. Otherwise negative patient will be admitted for coronavirus and fever with supportive care - Lab Data Result diagrams: 10/10/22 14:00 10/10/22 14:00 Lab Results 10/08/22 10/08/22 10/08/22 Range/Units 17:40 17:40 17:40 WBC 3.3 L (3.8-10.6) k/uL RBC 4.15 (3.80-5.40) m/uL Hgb 12.0 (11.4-16.0) gm/dL Hct 37.7 (34.0-46.0) % MCV 90.8 (80.0-100.0) fL MCH 28.8 (25.0-35.0) pg MCHC 31.7 (31.0-37.0) g/dL RDW 15.0 (11.5-15.5) % Plt Count 137 L (150-450) k/uL MPV 7.4 Neutrophils % 57 % Lymphocytes % 20 % Monocytes % 19 % Eosinophils % 1 % Basophils % 0 % Neutrophils # 1.9 (1.3-7.7) k/uL Lymphocytes # 0.6 L (1.0-4.8) k/uL Monocytes # 0.6 (0-1.0) k/uL Eosinophils # 0.0 (0-0.7) k/uL Basophils # 0.0 (0-0.2) k/uL PT 11.7 (9.0-12.0) sec INR 1.1 (<1.2) APTT 25.8 (22.0-30.0) sec Sodium 127 L (137-145) mmol/L Potassium 3.5 (3.5-5.1) mmol/L Chloride 91 L (98-107) mmol/L Carbon Dioxide 28 (22-30) mmol/L Anion Gap 8 mmol/L BUN 15 (7-17) mg/dL Creatinine 0.53 (0.52-1.04) mg/dL Est GFR (CKD-EPI)AfAm >90 (>60 ml/min/1.73 sqM) Est GFR (CKD-EPI)NonAf 85 (>60 ml/min/1.73 sqM) Glucose 100 H (74-99) mg/dL Plasma Lactic Acid Luke (0.7-2.0) mmol/L Calcium 8.2 L (8.4-10.2) mg/dL Phosphorus 3.5 (2.5-4.5) mg/dL Magnesium 1.5 L (1.6-2.3) mg/dL Total Bilirubin 0.8 (0.2-1.3) mg/dL AST 31 (14-36) U/L ALT 17 (4-34) U/L Alkaline Phosphatase 51 (38-126) U/L Troponin I (0.000-0.034) ng/mL Total Protein 6.5 (6.3-8.2) g/dL Albumin 3.4 L (3.5-5.0) g/dL Urine Color Urine Appearance (Clear) Urine pH (5.0-8.0) Ur Specific [place] (1.001-1.035) Urine Protein (Negative) Urine Glucose (UA) (Negative) Urine Ketones (Negative) Urine Blood (Negative) Urine Nitrite (Negative) Urine Bilirubin (Negative) Urine Urobilinogen (<2.0) mg/dL Ur Leukocyte Esterase (Negative) Urine RBC (0-5) /hpf Urine WBC (0-5) /hpf Ur Squamous Epith Cells (0-4) /hpf Urine Bacteria (None) /hpf Hyaline Casts (0-2) /lpf Urine Mucus (None) /hpf Influenza Type A (PCR) (Not Detectd) Influenza Type B (PCR) (Not Detectd) RSV (PCR) (Not Detectd) SARS-CoV-2 (PCR) (Not Detectd) 10/08/22 10/08/22 10/08/22 Range/Units 17:40 17:40 17:40 WBC (3.8-10.6) k/uL RBC (3.80-5.40) m/uL Hgb (11.4-16.0) gm/dL Hct (34.0-46.0) % MCV (80.0-100.0) fL MCH (25.0-35.0) pg MCHC (31.0-37.0) g/dL RDW (11.5-15.5) % Plt Count (150-450) k/uL MPV Neutrophils % % Lymphocytes % % Monocytes % % Eosinophils % % Basophils % % Neutrophils # (1.3-7.7) k/uL Lymphocytes # (1.0-4.8) k/uL Monocytes # (0-1.0) k/uL Eosinophils # (0-0.7) k/uL Basophils # (0-0.2) k/uL PT (9.0-12.0) sec INR (<1.2) APTT (22.0-30.0) sec Sodium (137-145) mmol/L Potassium (3.5-5.1) mmol/L Chloride (98-107) mmol/L Carbon Dioxide (22-30) mmol/L Anion Gap mmol/L BUN (7-17) mg/dL Creatinine (0.52-1.04) mg/dL Est GFR (CKD-EPI)AfAm (>60 ml/min/1.73 sqM) Est GFR (CKD-EPI)NonAf (>60 ml/min/1.73 sqM) Glucose (74-99) mg/dL Plasma Lactic Acid Luke 0.9 (0.7-2.0) mmol/L Calcium (8.4-10.2) mg/dL Phosphorus (2.5-4.5) mg/dL Magnesium (1.6-2.3) mg/dL Total Bilirubin (0.2-1.3) mg/dL AST (14-36) U/L ALT (4-34) U/L Alkaline Phosphatase (38-126) U/L Troponin I <0.012 (0.000-0.034) ng/mL Total Protein (6.3-8.2) g/dL Albumin (3.5-5.0) g/dL Urine Color Urine Appearance (Clear) Urine pH (5.0-8.0) Ur Specific [place] (1.001-1.035) Urine Protein (Negative) Urine Glucose (UA) (Negative) Urine Ketones (Negative) Urine Blood (Negative) Urine Nitrite (Negative) Urine Bilirubin (Negative) Urine Urobilinogen (<2.0) mg/dL Ur Leukocyte Esterase (Negative) Urine RBC (0-5) /hpf Urine WBC (0-5) /hpf Ur Squamous Epith Cells (0-4) /hpf Urine Bacteria (None) /hpf Hyaline Casts (0-2) /lpf Urine Mucus (None) /hpf Influenza Type A (PCR) Not Detected (Not Detectd) Influenza Type B (PCR) Not Detected (Not Detectd) RSV (PCR) Not Detected (Not Detectd) SARS-CoV-2 (PCR) Detected A (Not Detectd) 10/09/22 Range/Units 04:15 WBC (3.8-10.6) k/uL RBC (3.80-5.40) m/uL Hgb (11.4-16.0) gm/dL Hct (34.0-46.0) % MCV (80.0-100.0) fL MCH (25.0-35.0) pg MCHC (31.0-37.0) g/dL RDW (11.5-15.5) % Plt Count (150-450) k/uL MPV Neutrophils % % Lymphocytes % % Monocytes % % Eosinophils % % Basophils % % Neutrophils # (1.3-7.7) k/uL Lymphocytes # (1.0-4.8) k/uL Monocytes # (0-1.0) k/uL Eosinophils # (0-0.7) k/uL Basophils # (0-0.2) k/uL PT (9.0-12.0) sec INR (<1.2) APTT (22.0-30.0) sec Sodium (137-145) mmol/L Potassium (3.5-5.1) mmol/L Chloride (98-107) mmol/L Carbon Dioxide (22-30) mmol/L Anion Gap mmol/L BUN (7-17) mg/dL Creatinine (0.52-1.04) mg/dL Est GFR (CKD-EPI)AfAm (>60 ml/min/1.73 sqM) Est GFR (CKD-EPI)NonAf (>60 ml/min/1.73 sqM) Glucose (74-99) mg/dL Plasma Lactic Acid Luke (0.7-2.0) mmol/L Calcium (8.4-10.2) mg/dL Phosphorus (2.5-4.5) mg/dL Magnesium (1.6-2.3) mg/dL Total Bilirubin (0.2-1.3) mg/dL AST (14-36) U/L ALT (4-34) U/L Alkaline Phosphatase (38-126) U/L Troponin I (0.000-0.034) ng/mL Total Protein (6.3-8.2) g/dL Albumin (3.5-5.0) g/dL Urine Color Yellow Urine Appearance Cloudy H (Clear) Urine pH 5.5 (5.0-8.0) Ur Specific [place] 1.015 (1.001-1.035) Urine Protein Negative (Negative) Urine Glucose (UA) Negative (Negative) Urine Ketones Negative (Negative) Urine Blood Negative (Negative) Urine Nitrite Negative (Negative) Urine Bilirubin Negative (Negative) Urine Urobilinogen <2.0 (<2.0) mg/dL Ur Leukocyte Esterase Negative (Negative) Urine RBC 3 (0-5) /hpf Urine WBC 1 (0-5) /hpf Ur Squamous Epith Cells 2 (0-4) /hpf Urine Bacteria Rare H (None) /hpf Hyaline Casts 5 H (0-2) /lpf Urine Mucus Rare H (None) /hpf Influenza Type A (PCR) (Not Detectd) Influenza Type B (PCR) (Not Detectd) RSV (PCR) (Not Detectd) SARS-CoV-2 (PCR) (Not Detectd) - Radiology Data Radiology results: report reviewed (CT brain C-spine and facial bones positive f or for an hematoma chest and pelvis x-ray show atypical pneumonia), image reviewed Disposition Clinical Impression: Fall, Fever, Traumatic hematoma of forehead, Coronavirus infection Disposition: ADMITTED IP TO THIS HOSP Condition: Stable Is patient prescribed a controlled substance at d/c from ED?: No Time of Disposition: 19:40
[2022-10-08] MEDS ORDERED: IBUPROFEN IV 800 MG in SODIUM CHLORIDE 0.9% 250 ML IV ONE (17:45)
[2022-10-08 17:56] LABS: Basophils % (A) 0 %; Eosinophils % (A) 1 %; HCT 37.7 % (34.0-46.0); Lymphocytes # (A) 0.6 k/uL (1.0-4.8); Lymphocytes % (A) 20 %; MCH 28.8 pg (25.0-35.0); MCHC 31.7 g/dL (31.0-37.0); MCV 90.8 fL (80.0-100.0); Mean Platelet Volume 7.4; Monocytes # (A) 0.6 k/uL (0-1.0); Monocytes % (A) 19 %; Neutrophils # (A) 1.9 k/uL (1.3-7.7); Neutrophils % (A) 57 %; Platelet Count 137 k/uL (150-450); RBC 4.15 m/uL (3.80-5.40); WBC 3.3 k/uL (3.8-10.6)
[2022-10-08 18:12] LABS: ALT 17 U/L (4-34); AST 31 U/L (14-36); African American GFR (CKD) >90 (>60 ml/min/1.73 sqM); Albumin 3.4 g/dL (3.5-5.0); Alkaline Phosphatase 51 U/L (38-126); Anion Gap 8 mmol/L; Blood Urea Nitrogen 15 mg/dL (7-17); Calcium 8.2 mg/dL (8.4-10.2); Carbon Dioxide 28 mmol/L (22-30); Chloride 91 mmol/L (98-107); Glucose 100 mg/dL (74-99); Magnesium 1.5 mg/dL (1.6-2.3); Non-African American GFR(CKD) 85 (>60 ml/min/1.73 sqM); Phosphorus 3.5 mg/dL (2.5-4.5); Potassium 3.5 mmol/L (3.5-5.1); Sodium 127 mmol/L (137-145); Total Bilirubin 0.8 mg/dL (0.2-1.3); Total Protein 6.5 g/dL (6.3-8.2)
[2022-10-08 18:24] LABS: INR 1.1 (<1.2); Partial Thromboplastin Time 25.8 sec (22.0-30.0); Prothrombin Time 11.7 sec (9.0-12.0)
--- NOTE | 2022-10-08 18:25 | XR ---
EXAMINATION TYPE: XR pelvis AP view DATE OF EXAM: 10/08/2022 COMPARISON: 08/05/2022 HISTORY: Fall, pain TECHNIQUE: AP pelvis FINDINGS: Femoral heads articulate with the acetabulum. No acute fracture or dislocation is evident. Sacroiliac joints and symphysis pubis appear normal. Normal bowel gas is present. IMPRESSION: 1. No acute osseous abnormalities AP pelvis
--- NOTE | 2022-10-08 18:26 | XR ---
EXAMINATION TYPE: XR chest 1V DATE OF EXAM: 10/08/2022 COMPARISON: 08/05/2022 INDICATION: Pain after falling TECHNIQUE: Single frontal view of the chest is obtained. FINDINGS: The heart size is normal. Sternotomy wires are present from prior cardiac valve surgery. The pulmonary vasculature is normal. No suspicious focal consolidations are evident. No pneumothorax is evident. No displaced rib fracture s identified. IMPRESSION: 1. No acute pulmonary process.
--- NOTE | 2022-10-08 18:53 | CT ---
EXAMINATION TYPE: CT brain marlyn wo con DATE OF EXAM: 10/08/2022 COMPARISON: 08/05/2022 HISTORY: fall, large hematoma on forehead CT DLP: 974.6 mGycm, Automated exposure control for dose reduction was used. CONTRAST: Patient injected with 0 mL of Isovue 300. CT of the brain is performed utilizing 3 mm thick sections through the posterior fossa and 3 mm thick sections through the remaining calvarium. Study is performed within 24 hours of arrival to the hospital. No abnormal hyperdensity is present to suggest an acute intracranial hemorrhage. No mass lesion is evident. No acute infarcts are evident. Periventricular white matter hypodensity is present, likely basis of chronic white matter ischemic change. Ventricles and sulci are prominent for the patient age. Superficial soft tissue swelling over the left frontal region extending towards the left temporal reg ion. No underlying fracture is evident. Paranasal sinuses and mastoid air cells within the [id number] are clear. IMPRESSIONS: 1. Atrophy with chronic appearing periventricular white matter ischemic changes. 2. No acute intracranial process. Follow-up MRI can be performed as clinically indicated. 3. Superficial soft tissue swelling left frontal and temporal regions CT cervical spine. COMPARISON: 08/05/2022 CT of the cervical spine is performed in the axial plane at 2 mm thick sections. Reconstructed image s in the coronal, and sagittal plane are reviewed on the computer. No acute fractures are evident. There is a grade 1 spondylolisthesis of T2 on T3. This was present previously. There is diffuse loss of disc height throughout the cervical spine. This appears greatest at the C3-4 , C5-6 levels. Vertebral body heights are preserved. No spinal canal stenosis is evident. Uncovertebral joint hypertrophy is present at C3-4 with mild foraminal stenosis. Uncovertebral joint hypertrophy is moderate foraminal narrowing on the left at C5-6. IMPRESSIONS: 1. Degenerative disc changes and uncovertebral joint changes discussed above. 2. No acute osseous abnormality.
--- NOTE | 2022-10-08 18:56 | CT ---
EXAMINATION TYPE: CT facial bones wo con DATE OF EXAM: 10/08/2022 COMPARISON: 04/01/2021 HISTORY: fall, large hematoma on forehead CT DLP: 974.6 mGycm CONTRAST: 0 mL of Isovue 300 The paranasal sinuses are examined in the axial plane at 2 mm thick sections. Reconstructed images i n the coronal plane were obtained. There is dental amalgam scatter artifact The maxillary sinuses are clear. The ethmoid air cells are clear. The sphenoid sinuses are clear. The frontal sinuses are clear. Maxillary spine is intact. Nasal bones appear intact. Prior fracture be considered. The septum is evaluated. There is septal deviation to the right. The ostiomeatal units are patent. IMPRESSIONS: 1. No acute osseous abnormality. 2. Right septal deviation.
[2022-10-08] MEDS ORDERED: MORPHINE SULFATE 4 MG/ML SYRINGE IV PRN (22:38)
[2022-10-08] MEDS ORDERED: ONDANSETRON 4 MG/2 ML VIAL IVP PRN (22:38)
[2022-10-08] MEDS ORDERED: NALOXONE 0.4 MG/ML 1 ML VIAL IV PRN (22:38)
[2022-10-08] MEDS: SODIUM CHLORIDE 0.9% 1,000 ML IV SCH (23:54)
[2022-10-09 04:30] LABS: Appearance,Urine Cloudy (Clear); Bacteria,Urine Rare /hpf; Bilirubin,Urine Negative (Negative); Blood,Urine Negative (Negative); Color,Urine Yellow; Glucose,Urine (UA) Negative (Negative); Hyaline Casts,Urine 5 /lpf (0-2); Ketones,Urine Negative (Negative); Leukocyte Esterase,Urine Negative (Negative); Mucus,Urine Rare /hpf; Nitrite,Urine Negative (Negative); PH, Urine 5.5 (5.0-8.0); Protein,Urine Negative (Negative); RBC,Urine 3 /hpf (0-5); Specific Gravity,Urine 1.015 (1.001-1.035); Squamous Epithelial Cell,Urine 2 /hpf (0-4); Urobilinogen,Urine <2.0 mg/dL (<2.0); WBC,Urine 1 /hpf (0-5)
[2022-10-09] MEDS ORDERED: IPRATROPIUM-ALBUTEROL 3 ML NEB INHALATION PRN (10:47)
[2022-10-09] MEDS ORDERED: guaiFENesin SYRUP 100MG/5ML 200 MG/10 ML CUP PO PRN (10:47)
[2022-10-09] MEDS ORDERED: ACETAMINOPHEN TAB 500 MG TAB PO PRN (10:47)
[2022-10-09] MEDS ORDERED: HYDROcodone/APAP 5-325MG 1 EACH TAB PO PRN (10:49)
[2022-10-09] MEDS: DEXAMETHASONE SOD PHOSPHATE 10 MG/ML 1 ML VIAL IVP SCH (12:29)
[2022-10-09] MEDS: SODIUM CHLORIDE 0.9% 1,000 ML IV SCH (12:29)
--- NOTE | 2022-10-09 14:17 | P.HPIM ---
History of Present Illness H&P Date: 10/09/22 History of present illness; patient is a 89-year-old lady with past medical hist ory of dementia who presented to the ER because of fall. Patient is a poor historian, unable to give any history or information because of her dementia. Patient had a fall resulting in her hitting her head. Patient didn't pass out. Because of this fall, patient came to the ER Initial lab work done in the ER showed WBC 3.3, hemoglobin 12, platelet count 137, sodium 127, potassium 3.5, BUN and 15, creatinine 0.53, calcium 8.2, magnesium 1.5, influenza A and B-, COVID-19 positive Chest x-ray done in the ER showed no acute pulmonary process X-ray pelvis showed no acute osseous abnormalities CT head and cervical spine showed atrophy with chronic appearing periventricular white matter ischemic changes, no acute intrarenal process, no cervical spine fractures CT face done showed no acute osseous abnormality REVIEW OF SYSTEMS: Cannot be obtained because of patient history of dementia PHYSICAL EXAMINATION: GENERAL: The patient has dementia, not in any acute distress. Well developed, w ell nourished. HEENT: Pupils are round and equally reacting to light. EOMI. No scleral icterus. No conjunctival pallor. Normocephalic, atraumatic. No pharyngeal erythema. No thyromegaly. CARDIOVASCULAR: S1 and S2 present. No murmurs, rubs, or gallops. PULMONARY: Coarse breath some bilaterally, expiratory rhonchi audible ABDOMEN: Soft, nontender, nondistended, normoactive bowel sounds. No palpable organomegaly. MUSCULOSKELETAL: No joint swelling or deformity. EXTREMITIES: No cyanosis, clubbing, or pedal edema. NEUROLOGICAL: Gross neurological examination did not reveal any focal deficits. SKIN: No rashes. Assessment and plan Fall COVID-19 infection hypomagnesium anemia History of coronary disease status post CABG History of cardioversion Atrial fibrillation with rapid ventricular rate, currently rate controlled Hypertension Hyperlipidemia Dementia Anxiety Monitor vital signs Monitor CBC Monitor CMP Continue telemetry monitoring Fall precautions Delirium precautions Start Decadron Continue Robitussin Resume home meds Labs and medication were reviewed.. Continue same treatment. Continue with symptomatic treatment. Resume home medication. Monitor labs and vitals. DVT and GI prophylaxis. Further recommendations as per clinical course of the patient Dictation was produced using [employer] dictation software. please excuse any grammatical, word or spelling errors. Past Medical History Past Medical History: Atrial Fibrillation, Coronary Artery Disease (CAD), Heart Failure, COPD, Dementia, Hyperlipidemia, Hypertension Additional Past Medical History / Comment(s): hypertension anxiety disorder History of Any Multi-Drug Resistant Organisms: None Reported Past Surgical History: Appendectomy, Coronary Bypass/CABG Additional Past Surgical History / Comment(s): CABG IN JAN 2013 WITH CAR DIOVERSION Past Anesthesia/Blood Transfusion Reactions: No Reported Reaction Past Psychological History: Anxiety Smoking Status: Former smoker Past Alcohol Use History: Occasional Past Drug Use History: None Reported - Past Family History Father Additional Family Medical History / Comment(s): YOUNG FROM HEART ATTACK Medications and Allergies Home Medications Medication Instructions Recorded Confirmed Type Atenolol [Tenormin] 25 mg PO BID 10/18/13 10/08/22 History Simvastatin [Zocor] 40 mg PO DAILY@1400 10/18/13 10/08/22 History Acetaminophen Tab [Tylenol] 1,000 mg PO Q6H PRN 04/01/21 10/08/22 History Melatonin 5 mg PO HS@199903/19/22 10/08/22 History Budesonide-Formot 160-4.5 Mcg 2 puff INHALATION RT-BID each 03/27/22 10/08/22 Rx [Symbicort 160-4.5 Mcg Inhaler] Ipratropium-Albuterol Nebulize 3 ml INHALATION RT-Q4H PRN each 03/27/22 0 10/08/22 Rx [Duoneb 0.5 mg-3 mg/3 ml Soln] Apixaban [Eliquis] 2.5 mg PO BID@0800,1600 10/08/22 10/08/22 History Cholecalciferol [Vitamin D3 (25 50 mcg PO DAILY 10/08/22 10/08/22 History Mcg = 1000 Iu)] Cranberry-Vitamin C-Vitamin E 2 cap PO TID@0800,1200,1800 10/08/22 10/08/22 History 4208-32-0yn-Unit Capsule Escitalopram [Lexapro] 5 mg PO DAILY@0800 10/08/22 10/08/22 History Furosemide [Lasix] 40 mg PO DAILY PRN 10/08/22 10/08/22 History Furosemide [Lasix] 40 mg PO DAILY@0600 10/08/22 10/08/22 History guaiFENesin [guaiFENesin Oral 200 mg PO Q4H PRN 10/08/22 10/08/22 History Solution] Allergies Allergy/AdvReac Type Severity Reaction Status Date / Time levofloxacin [From Levaquin] Allergy Anaphylaxis Verified 10/08/22 17:37 Physical Exam Vitals: Vital Signs Temp Pulse Pulse Resp BP BP Pulse Ox 10/09/22 08:05 98 10/09/22 07:24 98.7 F 68 18 130/82 98 10/08/22 23:32 97.7 F 73 19 113/69 97 10/08/22 21:00 98.1 F 74 18 98/58 98 10/08/22 17:46 82 18 132/72 94 L 10/08/22 16:41 101.2 F H 91 18 151/79 96 Intake and Output 10/08/22 10/09/22 10/09/22 22:59 06:59 14:59 Output Total 40 Balance -40 Output: Urine 40 Other: Voiding Method Diaper External Catheter # Voids 1 Weight 86.183 kg 86.183 kg Results CBC & Chem 7: 10/08/22 17:40 10/08/22 17:40 Labs: Abnormal Lab Results - Last 24 Hours (Table) 10/08/22 10/08/22 10/08/22 Range/Units 17:40 17:40 17:40 WBC 3.3 L (3.8-10.6) k/uL Plt Count 137 L (150-450) k/uL Lymphocytes # 0.6 L (1.0-4.8) k/uL Sodium 127 L (137-145) mmol/L Chloride 91 L (98-107) mmol/L Glucose 100 H (74-99) mg/dL Calcium 8.2 L (8.4-10.2) mg/dL Magnesium 1.5 L (1.6-2.3) mg/dL Albumin 3.4 L (3.5-5.0) g/dL Urine Appearance (Clear) Urine Bacteria (None) /hpf Hyaline Casts (0-2) /lpf Urine Mucus (None) /hpf SARS-CoV-2 (PCR) Detected A (Not Detectd) 10/09/22 Range/Units 04:15 WBC (3.8-10.6) k/uL Plt Count (150-450) k/uL Lymphocytes # (1.0-4.8) k/uL Sodium (137-145) mmol/L Chloride (98-107) mmol/L Glucose (74-99) mg/dL Calcium (8.4-10.2) mg/dL Magnesium (1.6-2.3) mg/dL Albumin (3.5-5.0) g/dL Urine Appearance Cloudy H (Clear) Urine Bacteria Rare H (None) /hpf Hyaline Casts 5 H (0-2) /lpf Urine Mucus Rare H (None) /hpf SARS-CoV-2 (PCR) (Not Detectd) Thrombosis Risk Factor Assmnt - Choose All That Apply Other Risk Factors: Yes Each Risk Factor Represents 3 Points: Age 75 years or older Thrombosis Risk Factor Assessment Total Risk Factor Score: 3 Thrombosis Risk Factor Assessment Level: Moderate Risk
[2022-10-09] MEDS: ATORVASTATIN 20 MG TAB PO SCH (14:58)
[2022-10-09] MEDS: APIXABAN 2.5 MG TABLET PO SCH (17:07)
[2022-10-09] MEDS: MELATONIN 5 MG TABLET PO SCH (21:43)
[2022-10-09] MEDS: atenoloL 25 MG TAB PO SCH (21:43)
[2022-10-09] MEDS: SYMBICORT 160-4.5 MCG INHALER INHALATION SCH (21:52)
[2022-10-10] MEDS: SODIUM CHLORIDE 0.9% 1,000 ML IV SCH (04:53)
[2022-10-10] MEDS: CHOLECALCIFEROL 25 MCG (1000 IU) TABLET PO SCH (08:21)
[2022-10-10] MEDS: DEXAMETHASONE SOD PHOSPHATE 10 MG/ML 1 ML VIAL IVP SCH (08:21)
[2022-10-10] MEDS: APIXABAN 2.5 MG TABLET PO SCH ×2 (08:21→15:59)
[2022-10-10] MEDS: atenoloL 25 MG TAB PO SCH ×2 (08:21→21:03)
[2022-10-10] MEDS: ESCITALOPRAM 5 MG TAB PO SCH (08:21)
[2022-10-10] MEDS: SYMBICORT 160-4.5 MCG INHALER INHALATION SCH ×2 (08:40→21:39)
[2022-10-10] MEDS: ALBUTEROL HFA INHALER INHALATION PRN ×2 (08:40→21:39)
[2022-10-10] MEDS: TIOTROPIUM 2.5 MCG INHALER INHALATION PRN (08:41)
[2022-10-10 14:21] LABS: HCT 37.3 % (34.0-46.0); HGB 12.7 gm/dL (11.4-16.0); MCH 31.7 pg (25.0-35.0); Mean Platelet Volume 8.1; Platelet Count 115 k/uL (150-450); RBC 4.02 m/uL (3.80-5.40); RDW 14.9 % (11.5-15.5); WBC 2.1 k/uL (3.8-10.6)
--- NOTE | 2022-10-10 15:02 | P.PN ---
Subjective Progress Note Date: 10/10/22 patient is a 89-year-old lady with past medical history of dementia who presented to the ER because of fall. Patient is a poor historian, unable to give any history or information because of her dementia. Patient had a fall resulting in her hitting her head. Patient didn't pass out. Because of this fall, patient came to the ER Initial lab work done in the ER showed WBC 3.3, hemoglobin 12, platelet count 137, sodium 127, potassium 3.5, BUN and 15, creatinine 0.53, calcium 8.2, m agnesium 1.5, influenza A and B-, COVID-19 positive Chest x-ray done in the ER showed no acute pulmonary process X-ray pelvis showed no acute osseous abnormalities CT head and cervical spine showed atrophy with chronic appearing periventricular white matter ischemic changes, no acute intrarenal process, no cervical spine fractures CT face done showed no acute osseous abnormality 10/10. Patient seen and examined. Cough is improving. Has been afebrile REVIEW OF SYSTEMS: Cannot be obtained because of patient's baseline dementia s, PHYSICAL EXAMINATION: GENERAL: The patient is alert, baseline dementia, bruising of left side of her face HEENT: Pupils are round and equally reacting to light. EOMI. No scleral icterus. No conjunctival pallor. Normocephalic, atraumatic. No pharyngeal erythema. No thyromegaly. CARDIOVASCULAR: S1 and S2 present. No murmurs, rubs, or gallops. PULMONARY: Chest is clear to auscultation, no wheezing or crackles. ABDOMEN: Soft, nontender, nondistended, normoactive bowel sounds. No palpable organomegaly. MUSCULOSKELETAL: No joint swelling or deformity. EXTREMITIES: No cyanosis, clubbing, or pedal edema. NEUROLOGICAL: Gross neurological examination did not reveal any focal deficits. SKIN: No rashes. Assessment and plan Fall COVID-19 infection hypomagnesium anemia History of coronary disease status post CABG History of cardioversion Atrial fibrillation with rapid ventricular rate, currently rate controlled Hypertension Hyperlipidemia Dementia Anxiety Monitor vital signs Monitor CBC Monitor CMP Fall precautions Delirium precautions Continue Decadron Continue Robitussin Labs and medication were reviewed.. Continue same treatment. Continue with symptomatic treatment. Resume home medication. Monitor labs and vitals. DVT and GI prophylaxis. Further recommendations as per clinical course of the patient Dictation was produced using dragon dictation software. please excuse any grammatical, word or spelling errors. Objective - Vital Signs Vital signs: Vital Signs Temp 98.3 F 10/10/22 06:51 Pulse 97 10/10/22 07:40 Resp 16 10/10/22 07:40 BP 119/69 10/10/22 06:51 Pulse Ox 94 L 10/10/22 06:51 FiO2 Intake & Output 10/09/22 10/10/22 10/10/22 18:59 06:59 18:59 Output Total 250 600 Balance -250 -600 Output: Urine 250 600 Other: Voiding Method Diaper Diaper External Catheter External Catheter # Voids 3 - Labs CBC & Chem 7: 10/10/22 14:00 10/08/22 17:40 Labs: Abnormal Lab Results - Last 24 Hours (Table) 10/10/22 Range/Units 14:00 WBC 2.1 L (3.8-10.6) k/uL Plt Count 115 L (150-450) k/uL
[2022-10-10 15:50] LABS: ALT 22 U/L (4-34); AST 34 U/L (14-36); African American GFR (CKD) >90 (>60 ml/min/1.73 sqM); Albumin/Globulin Ratio 1.1; Alkaline Phosphatase 50 U/L (38-126); Anion Gap 7 mmol/L; Blood Urea Nitrogen 15 mg/dL (7-17); Calcium 7.9 mg/dL (8.4-10.2); Carbon Dioxide 27 mmol/L (22-30); Chloride 96 mmol/L (98-107); Globulin 2.8 g/dL; Glucose 161 mg/dL (74-99); Non-African American GFR(CKD) 89 (>60 ml/min/1.73 sqM); Potassium 3.4 mmol/L (3.5-5.1); Sodium 130 mmol/L (137-145); Total Bilirubin 0.5 mg/dL (0.2-1.3); Total Protein 5.8 g/dL (6.3-8.2)
[2022-10-10] MEDS: ATORVASTATIN 20 MG TAB PO SCH (16:00)
[2022-10-10] MEDS: MELATONIN 5 MG TABLET PO SCH (21:03)
[2022-10-11] MEDS: SODIUM CHLORIDE 0.9% 1,000 ML IV SCH (00:06)
[2022-10-11 04:00] VITALS: RESP 17
[2022-10-11] MEDS: APIXABAN 2.5 MG TABLET PO SCH (08:25)
[2022-10-11] MEDS: ESCITALOPRAM 5 MG TAB PO SCH (08:25)
[2022-10-11] MEDS: atenoloL 25 MG TAB PO SCH (08:25)
[2022-10-11] MEDS: CHOLECALCIFEROL 25 MCG (1000 IU) TABLET PO SCH (08:25)
[2022-10-11] MEDS: SYMBICORT 160-4.5 MCG INHALER INHALATION SCH (08:51)
[2022-10-11] MEDS: ALBUTEROL HFA INHALER INHALATION PRN (08:51)
[2022-10-11] MEDS: TIOTROPIUM 2.5 MCG INHALER INHALATION PRN (08:51)
[2022-10-11] MEDS: DEXAMETHASONE SOD PHOSPHATE 10 MG/ML 1 ML VIAL IVP SCH ×2 (09:18→09:21)
[2022-10-11 09:33] VITALS: BP 116/68; PULSE 78; TEMP 97.5
[2022-10-11] MEDS ORDERED: POTASSIUM CHLORIDE ER 10 MEQ TAB.ER.PRT PO STA (10:32)
--- NOTE | 2022-10-11 10:40 | P.DS ---
Providers Date of admission: 10/09/22 10:08 Expected date of discharge: 10/11/22 Attending physician: Mavis Nielsen Primary care physician: [facility] Hospital Course: Discharge diagnoses; Fall COVID-19 infection hypomagnesemia History of coronary disease status post CABG History of cardioversion Atrial fibrillation with rapid ventricular rate, currently rate controlled Hypertension Hyperlipidemia Dementia Anxiety Hospital course; patient is a 89-year-old lady with past medical history of dementia who presented to the ER because of fall. Patient is a poor historian, unable to give any history or information because of her dementia. Patient had a fall resulting in her hitting her head. Patient didn't pass out. Because of this fall, patient came to the ER Initial lab work done in the ER showed WBC 3.3, hemoglobin 12, platelet count 137, sodium 127, potassium 3.5, BUN and 15, creatinine 0.53, calcium 8.2, magnesium 1.5, influenza A and B-, COVID-19 positive Chest x-ray done in the ER showed no acute pulmonary process X-ray pelvis showed no acute osseous abnormalities CT head and cervical spine showed atrophy with chronic appearing periventricular white matter ischemic changes, no acute intrarenal process, no cervical spine fractures CT face done showed no acute osseous abnormality 10/10. Patient seen and examined. Cough is improving. Has been afebrile 10/11. Patient seen and examined. Patient discharged on Decadron for 7 more days. PHYSICAL EXAMINATION: GENERAL: The patient is alert, baseline dementia, bruising of left side of her face HEENT: Pupils are round and equally reacting to light. EOMI. No scleral icterus. No conjunctival pallor. Normocephalic, atraumatic. No pharyngeal erythema. No thyromegaly. CARDIOVASCULAR: S1 and S2 present. No murmurs, rubs, or gallops. PULMONARY: Chest is clear to auscultation, no wheezing or crackles. ABDOMEN: Soft, nontender, nondistended, normoactive bowel sounds. No palpable organomegaly. MUSCULOSKELETAL: No joint swelling or deformity. EXTREMITIES: No cyanosis, clubbing, or pedal edema. NEUROLOGICAL: Gross neurological examination did not reveal any focal deficits. SKIN: No rashes. Dictation was produced using [employer] software. please excuse any grammatical, word or spelling errors. Patient Condition at Discharge: Stable Plan - Discharge Summary New Discharge Prescriptions: New dexAMETHasone [Decadron] 6 mg PO DAILY #7 tablet Continue Simvastatin [Zocor] 40 mg PO DAILY@1400 Atenolol [Tenormin] 25 mg PO BID Ipratropium-Albuterol Nebulize [Duoneb 0.5 mg-3 mg/3 ml Soln] 3 ml INHALATION RT-Q4H PRN each PRN Reason: Shortness Of Breath Or Wheezing Apixaban [Eliquis] 2.5 mg PO BID@0800,1600 guaiFENesin [guaiFENesin Oral Solution] 200 mg PO Q4H PRN PRN Reason: Cough Cranberry-Vitamin C-Vitamin E 3949-97-3ge-Unit Capsule 2 cap PO TID@0800 ,1200,1800 Acetaminophen Tab [Tylenol] 1,000 mg PO Q6H PRN PRN Reason: Pain Melatonin 5 mg PO HS@1999 Budesonide-Formot 160-4.5 Mcg [Symbicort 160-4.5 Mcg Inhaler] 2 puff INHALATION RT-BID each Cholecalciferol [Vitamin D3 (25 Mcg = 1000 Iu)] 50 mcg PO DAILY Furosemide [Lasix] 40 mg PO DAILY PRN PRN Reason: EDEMA AND WT GAIN Furosemide [Lasix] 40 mg PO DAILY@0600 Escitalopram [Lexapro] 5 mg PO DAILY@0800 Discharge Medication List Atenolol [Tenormin] 25 mg PO BID 10/18/13 [History] Simvastatin [Zocor] 40 mg PO DAILY@1400 10/18/13 [History] Acetaminophen Tab [Tylenol] 1,000 mg PO Q6H PRN 04/01/21 [History] Melatonin 5 mg PO HS@199903/19/22 [History] Budesonide-Formot 160-4.5 Mcg [Symbicort 160-4.5 Mcg Inhaler] 2 puff INHALATION RT-BID each 03/27/22 [Rx] Ipratropium-Albuterol Nebulize [Duoneb 0.5 mg-3 mg/3 ml Soln] 3 ml INHALATION RT-Q4H PRN each 03/27/22 [Rx] Apixaban [Eliquis] 2.5 mg PO BID@0800,1600 10/08/22 [History] Cholecalciferol [Vitamin D3 (25 Mcg = 1000 Iu)] 50 mcg PO DAILY 10/08/22 [History] Cranberry-Vitamin C-Vitamin E 3583-46-0gj-Unit Capsule 2 cap PO TID@0800,1200,1800 10/08/22 [History] Escitalopram [Lexapro] 5 mg PO DAILY@0800 10/08/22 [History] Furosemide [Lasix] 40 mg PO DAILY PRN 10/08/22 [History] Furosemide [Lasix] 40 mg PO DAILY@0600 10/08/22 [History] guaiFENesin [guaiFENesin Oral Solution] 200 mg PO Q4H PRN 10/08/22 [History] dexAMETHasone [Decadron] 6 mg PO DAILY #7 tablet 10/11/22 [Rx] Follow up Appointment(s)/Referral(s): Kam Robbins DO [Primary Care Provider] - 1-2 days [facility] [place], [NON-STAFF] - As Needed
== END 2022-10-11 12:57 | disposition home or self-care (01) ==
LOC: EC 16:39 → 4SSUR 22:38 → INTOOBSV 10-09 10:08 → OBSVTOIN 10-09 10:08 → UNDODISIN 10-11 12:57
PROVIDERS: ADMIT Hospitalist; ATTEND Hospitalist
DX: S00.83XA Contusion of other part of head, initial encounter (principal); U07.1 COVID-19; F03.C0 Unspecified dementia, severe, without behavioral disturbance, psychotic disturbance, mood disturbance, and anxiety; E83.42 Hypomagnesemia; D64.9 Anemia, unspecified; I25.10 Atherosclerotic heart disease of native coronary artery without angina pectoris; E78.5 Hyperlipidemia, unspecified; F41.9 Anxiety disorder, unspecified; I48.91 Unspecified atrial fibrillation; I10 Essential (primary) hypertension; M43.14 Spondylolisthesis, thoracic region; J34.2 Deviated nasal septum; Z95.1 Presence of aortocoronary bypass graft; Z79.01 Long term (current) use of anticoagulants; Z79.899 Other long term (current) drug therapy; Z79.82 Long term (current) use of aspirin; Z88.8 Allergy status to other drugs, medicaments and biological substances; Z82.49 Family history of ischemic heart disease and other diseases of the circulatory system; Z63.4 Disappearance and death of family member; Z20.822 Contact with and (suspected) exposure to COVID-19; Z87.891 Personal history of nicotine dependence; W01.0XXA Fall on same level from slipping, tripping and stumbling without subsequent striking against object, initial encounter; Y92.129 Unspecified place in nursing home as the place of occurrence of the external cause
CPT/HCPCS: 96376; 96361 ×3; 96375 ×2; 96365; 96367; 99285; 36415; 94640 ×5; 94760; 93005; 97162; 97166; 80053 ×2; 83605; 83735; 84100; 84484; 85025; 85027; 85610; 85730; 81001; 87636; 72170; 71045; 72125; 70486; 70450; G0378 ×4; J2270; J1100 ×2; J0131; J1741